=== PATIENT | female | born 1990 | race Caucasian/White ===

== ENCOUNTER 2019-06-22 03:15 | Inpatient (IN) | payer MEDICAID, SELFPAY ==
[2019-06-22] MEDS: Lactated Ringers 500 ML 999 ML IV ×2 (04:00→06:40)
[2019-06-22] MEDS: Lactated Ringers 1,000 ML 50 ML IV (04:00)
[2019-06-22 04:11] VITALS: BMI 26.2
[2019-06-22 04:19] LABS: Absolute Lymphocyte Count 1.96 X10^3/uL (0.83-4.51); Absolute Neutrophil Count 8.7 X10^3/uL (2.0-7.7); Basophil# 0.04 X10^3/uL; Basophil% 0.3 % (0-1); Eosinophils% 0.9 % (0-5); Hematocrit 36.3 % (37-47); Hemoglobin 12.2 g/dL (12.0-15.0); Lymphocyte # 1.96 X10^3/ul (4.0); Lymphocyte % 16.9 % (19-41); Mean Corp Hgb Conc 33.6 g/dL (32-36); Mean Corpuscular Hgb 28.8 pg (27.0-32.0); Mean Corpuscular Volume 85.8 fL (81-99); Mean Platelet Vol. 10.5 fl (6.2-12.0); Monocyte# 0.72 X10^3/uL; Monocyte% 6.2 % (0-10); NRBC Flagged by Analyzer 0 % (0-5); Neutrophil % 75.3 % (47-70); Platelet Count 199 K/mm3 (150-450); RBC Distribution Width CV 12.6 % (11.6-14.6); RBC Distribution Width SD 38.9 fl (35.1-43.9); Red Blood Count 4.23 M/mm3 (4.2-5.4); White Blood Count 11.6 K/mm3 (4.4-11.0)
--- NOTE | 2019-06-22 06:25 | HP.PCM_ITS ---
- Problem List (1) History of spontaneous Status: Acute (2) History of marijuana use Status: Acute (3) Rh negative status during Status: Acute History Date of Admission: 06/22/19 Final FLORY: 06/19/19 Gestational age: 40 Weeks and 3 Days History of this : This is a 29 year-old, G [2], P [0010], at 40 weeks 3 days gestational age by LMP. Presented for contractions and in active labor. Allergies No Known Allergies Allergy (Verified 06/22/19 04:05) Home Medications: Home Medications Vits [Prenatabs FA] 1 tab PO DAILY 06/22/19 Smoking Status: Former smoker Alcohol: None Substance Use Type: Marijuana Number of Fetus(es): 1 NST - FHR Rate Baby A Baseline: 140 Variability:: Minimal Accelerations:: None Decelerations:: None FHR Category:: Category II Uterine Activity:: Every 2 minutes, strong History Past Pregnancies: Past Pregnancies Delivery Date Name GA/ Weeks Outcome Route Wt Infant Sex Labor Length Anesthesia Delivery Location Provider FOB Labs: Mom's Labs & Results 06/22/19 06/22/19 06/22/19 04:00 04:00 04:00 WBC 11.6 H RBC 4.23 Hgb 12.2 Hct 36.3 L MCV 85.8 MCH 28.8 MCHC 33.6 RDW Std Deviation 38.9 RDW Coeff of Ever 12.6 Plt Count 199 MPV 10.5 Immature Gran % (Auto) 0.400 Neut % (Auto) 75.3 H Lymph % (Auto) 16.9 L [place] % (Auto) 6.2 Eos % (Auto) 0.9 Baso % (Auto) 0.3 Absolute Neuts (auto) 8.7 H Absolute Lymphs (auto) 1.96 Nucleated RBC % 0 Blood Type O NEGATIVE Antibody Screen TNP NEGATIVE Course Did the patient receive Yes care? Labs Blood Type: O RH: NEGATIVE RPR/VDRL/Syphilis Nonreactive Rubella status Immune HbSAg Negative Date Done: 12/08/18 Chlamydia Negative Gonorrhea Negative HIV/AIDS Non-Reactive Group B Strep: Negative Social History Hx Smoking No Smoking Status Former smoker Substance Use Type Marijuana What date/time did you last used beginning of but not since per pt use any of the above? Review of Systems Constitutional: Denies: Chills, Fever, Weight Change HEENT: Denies: Head Aches, Sinus Congestion, Sinus Drainage Cardiovascular: Denies: Chest Pain, Palpitations Genitourinary: Denies: Dysuria Neurological: Denies: Numbness, Tingling, Focal weakness Psychiatric: Denies: Anxiety, Depression, Homicidal Ideations, Suicidal Ideations Physical Exam General: Alert, Oriented x3, Cooperative HEENT: Atraumatic, Normocephalic Lungs: Normal air movement Abdomen: Gravid Extremities:: No edema SUPPLY COORDINATOR: Normal external genitalia Estimated gestational size: Appropriate for gestational size Presentation: Cephalic Cervix Dilation (cm): 9 Station: 0 Effacement (%): 90 Assessment/Plan All Active Problems History of spontaneous (Acute) History of marijuana use (Acute) Rh negative status during (Acute) This is a 29 year-old, G [2], P [0010], at 40 weeks 3 days gestational age. A: Active Labor Category 2 FHT P: 1) Admit to L&D 2) Continuous monitoring, IV labs 3) Planning Natural childbirth 4) notified of patient status
--- NOTE | 2019-06-22 08:14 | PCM.OPRPT ---
Vaginal Delivery Maternal Presentation: Active Labor Amniotic Membrane Rupture Type: Artificial Amniotic Fluid Description: Clear Final FLORY: 06/19/19 Gestational age: 40 Weeks and 3 Days Date of Procedure: 06/22/19 Pre-Operative Diagnosis: Labor Post-Operative Diagnosis: Labor Surgery/ Procedure Performed: Spontaneous Vaginal Delivery Type of Anesthesia: Local with 2% lidocaine Description of Procedure: Patient in stirrups when c/c/+3. She pushed to deliver head. head gently guided to allow delivery of anterior & posterior shoulders. No excess traction placed on head. Body delivered & infant placed on maternal abdomen. 3VC clamped & cut in delayed fashion. Placenta delivered with gentle traction. Good uterine tone obtained. Presentation: TANVIR Placental Delivery Description: Expressed Placenta Disposition: [facility] Cord Vessel Description: 3 Vessels Cord Entanglement: None Estimated Blood Loss: 400ml A gender: Male - [place] (1 minute): 9 (5 minute): 9 Episiotomy Description: None Laceration: 2nd degree - perineal - repaired with 3-0 vicryl Medications given after delivery: IV Pitocin Complications: None
[2019-06-22] MEDS: Oxytocin 30 units/NS 500 ml 30 UNITS/500 ML IV.SOLN 334 UNITS IV (08:29)
[2019-06-22] MEDS: Ketorolac 30 MG/ML Syringe IV (08:39)
[2019-06-22 11:00] VITALS: BP 139/69; PULSE 104; RESP 14; TEMP 36.9
[2019-06-22 16:00] VITALS: BP 115/55; PULSE 87; RESP 16; TEMP 37.2; O2SAT 98
[2019-06-22] MEDS: Acetaminophen 500 MG Tablet 1000 MG PO (17:13)
[2019-06-22 20:16] VITALS: BP 117/71; PULSE 83; RESP 16; TEMP 36.9; O2SAT 98
[2019-06-22] MEDS: Naproxen 250 MG Tablet 500 MG PO (22:21)
[2019-06-23 00:01] VITALS: BP 111/61; PULSE 83; RESP 14; TEMP 36.9
[2019-06-23 03:57] VITALS: BP 106/60; PULSE 80; RESP 14; TEMP 36.9
--- NOTE | 2019-06-23 06:35 | PCM.PN.OB ---
Patient Problems: Active and Suspected Problems History of spontaneous (Acute) History of marijuana use (Acute) Rh negative status during (Acute) Subjective: No complaints - Physical Exam Vitals/I&O's: Vital Signs Temp Pulse Resp BP Pulse Ox 98.5 F 80 14 106/60 98 06/23/19 03:57 06/23/19 03:57 06/23/19 03:57 06/23/19 03:57 06/22/19 20:16 Oxygen Delivery Method Room Air Weight: 153 lb 0.013 oz Body Mass Index (BMI) 26.2 Intake and Output for Last 24 Hours 06/21/19 06/22/19 06/23/19 23:59 23:59 23:59 Intake Total 2690.83 / 2690.83 Output Total 1900 / 1900 Balance 790.83 / 790.83 General: Alert, Oriented x3 Abdomen: Soft, Non Tender, Non-Distended - ff mid & below umb Extremities: No Calf Tenderness Current Medications Acetaminophen (Tylenol) 1,000 mg PO Q8H PRN PRN PRN Reason: Pain Score 1-3/10 Last Admin: 06/22/19 17:13 Dose: 1,000 mg Documented by: Bisacodyl (Dulcolax) 10 mg RECTAL UD PRN PRN Reason: If no BM Dibucaine (Dibucaine) 1 applic TOPICAL TID PRN PRN; Protocol PRN Reason: Discomfort Hydrocortisone (Hytone) 1 applic TOPICAL TID PRN PRN; Protocol PRN Reason: Discomfort Methylergonovine Maleate (Methergine) 0.2 mg IM X1 PRN PRN Reason: Excess bleeding/uterine atony Naproxen (Naprosyn) 500 mg PO Q8H PRN PRN PRN Reason: Pain Score 1-3/10 Last Admin: 06/22/19 22:21 Dose: 500 mg Documented by: Ondansetron HCl (Zofran) 4 mg IV Q4H PRN PRN PRN Reason: Nausea Oxycodone HCl (Oxyir) 5 - 10 mg PO Q4H PRN PRN PRN Reason: Pain Score 4-10/10 Senna/Docusate Sodium (Senokot-S, Jyotsna-Colace) 1 - 2 tablet PO DAILY PRN PRN PRN Reason: Constipation Simethicone (Mylicon) 80 mg PO PCHS PRN PRN Reason: Indigestion/Stomach pain Sodium Chloride () 5 - 15 ml IV UD PRN PRN Reason: SALINE FLUSH Medical Necessity - Tobacco Use Smoking Status: Former smoker Assessment/Plan All Active Problems History of spontaneous (Acute) History of marijuana use (Acute) Rh negative status during (Acute) PPD#1 D/c home later today per patient request
--- NOTE | 2019-06-23 06:37 | DCINST_ITS ---
Discharge Diet: No Restrictions Discharge Activity: May Drive, May Shower May resume sexual activity in: 6 weeks Weight Bearing Status: Weight bearing as tolerated Additional Instructions: If you experience any of the following, contact your healthcare provider. * Bleeding that soaks a pad every hour for 2 hours * Fever 100.4 or higher * Unrelieved incision or abdominal pain * Swelling, redness, discharge or bleeding from your incision or episiotomy site * Your incision begins to separate * Problems urinating (including inability to urinate or burning while urinating). * Visual changes * Severe headache * Flu-like symptoms * Pain or redness in one of both of your breasts * Pain, warmth, tenderness or swelling in your legs, especially the calf area * Frequent nausea and vomiting * Symptoms of depression or anxiety If you experience any of the following, call 911 or go to the nearest Emergency Room. * Chest pain * Problems breathing * Seizure activity * Partial or complete paralysis of a body part, slurred speech, weakness or drooping of the face, or a sudden inability to walk or hold your balance Allergies/Adverse Reactions: Allergies No Known Allergies Allergy (Verified 06/22/19 04:05) Medications to take at Discharge Vits [Prenatabs FA ] 1 tab PO DAILY 06/22/19 Acetaminophen [Tylenol] 1,000 mg PO Q8H PRN PRN tablet 06/23/19 Naproxen [Naprosyn] 500 mg PO Q8H PRN PRN tablet 06/23/19 Primary Care Physician: Zee Quiroz MD [Primary Care Provider] - Test Results: Test results from this visit will be discussed in further detail at your follow- up appointment, if applicable.
--- NOTE | 2019-06-23 06:37 | PCM.DCVAG ---
Discharge Diet: No Restrictions Discharge Activity: May Drive, May Shower May resume sexual activity in: 6 weeks Weight Bearing Status: Weight bearing as tolerated Additional Instructions: If you experience any of the following, contact your healthcare provider. Bleeding that soaks a pad every hour for 2 hours Fever 100.4 or higher Unrelieved incision or abdominal pain Swelling, redness, discharge or bleeding from your incision or episiotomy site Your incision begins to separate Problems urinating (including inability to urinate or burning while urinating). Visual changes Severe headache Flu-like symptoms Pain or redness in one of both of your breasts Pain, warmth, tenderness or swelling in your legs, especially the calf area Frequent nausea and vomiting Symptoms of depression or anxiety If you experience any of the following, call 911 or go to the nearest Emergency Room. Chest pain Problems breathing Seizure activity Partial or complete paralysis of a body part, slurred speech, weakness or drooping of the face, or a sudden inability to walk or hold your balance Allergies/Adverse Reactions: Allergies No Known Allergies Allergy (Verified 06/22/19 04:05) Medications to take at Discharge Vits [Prenatabs FA ] 1 tab PO DAILY 06/22/19 Acetaminophen [Tylenol] 1,000 mg PO Q8H PRN PRN tablet 06/23/19 Naproxen [Naprosyn] 500 mg PO Q8H PRN PRN tablet 06/23/19 Primary Care Physician: Zee Quiroz MD [Primary Care Provider] - Test Results: Test results from this visit will be discussed in further detail at your follow-up appointment, if applicable.
[2019-06-23 07:35] VITALS: BP 111/61; PULSE 87; RESP 14; TEMP 36.8
[2019-06-23] MEDS: Acetaminophen 500 MG Tablet 1000 MG PO (07:43)
[2019-06-23] MEDS: Senna/Docusate Sodium 1 Tablet PO (08:57)
[2019-06-23 14:00] VITALS: BP 111/76; PULSE 100; RESP 16; TEMP 36.2
== END 2019-06-23 15:40 | disposition home or self-care (01) | DRG 560 ==
PROVIDERS: Advanced Practice Midwife; Admitting Provider Obstetrics & Gynecology; Family Provider Pediatrics; PCP Pediatrics; Visit Provider Obstetrics & Gynecology
DX: O70.1 Second degree perineal laceration during delivery (principal); Z37.0 Single live birth; Z67.91 Unspecified blood type, Rh negative; Z87.891 Personal history of nicotine dependence; Z3A.40 40 weeks gestation of pregnancy
CPT/HCPCS: 59025; 59050; 85025; 86850; 86900; 86901; 99218; J7120; G0378

== ENCOUNTER → 2024-04-12 | Outpatient (CLI) | payer MEDICAID, SELFPAY ==
--- NOTE | 2024-04-12 10:21 | MRI_ITS ---
EXAM: MR LEFT LOWER EXTREMITY WITHOUT INTRAVENOUS CONTRAST, TIBIA AND FIBULA CLINICAL INDICATION: sessile tibia lesion, assess for malignancy TECHNIQUE: Multiplanar and multisequence MR images of the left tibia and fibula without intravenous contrast. COMPARISON: March 04, 2024 FINDINGS: BONES/JOINTS: Sessile osteochondroma at the lateral aspect of the metaphysis of the distal tibia. This causes chronic bony remodeling on the metadiaphysis of the distal fibula. Mild thickening anterior talofibular ligament from a previous injury. Patchy areas of edema involving the talus. There is also edema involving the posterior aspect of the distal tibia. No fracture. No joint effusion. MUSCLES: Unremarkable. No edema or myositis. OTHER SOFT TISSUES: Unremarkable. No solid or cystic mass. MRI/Lower Ext/No Jt/w/o IMPRESSION: 1. Mild thickening anterior talofibular ligament from a previous injury. 2. Sessile osteochondroma at the lateral aspect of the metaphysis of the distal tibia. This causes chronic bony remodeling on the metadiaphysis of the distal fibula. Electronically Signed: Sumit Umana MD at 3:16 EDT ,
--- OUTSIDE RECORDS SUMMARY | 2024-04-12 11:03 | XMS RPT_ITS | CCD ---
Author Organization [facility] Care Team Providers Care Transmitter Chief Name Role Phone Hank Abrams DO Primary Care Provider [phone] HANK ABRAMS Primary Care Unavailable BEATRIZ RODRIGUEZ Attending Unavailable BEATRIZ RODRIGUEZ Attending Unavailable HANK ABRAMS Primary Care Unavailable VIRAL PARISH Referring Unavailable HANK ABRAMS Primary Care Unavailable VIRAL PARISH Referring Unavailable HANK ABRAMS Primary Care Unavailable HANK ABRAMS Primary Care Unavailable HANK ABRAMS Primary Care Unavailable HANK ABRAMS Primary Care Unavailable ROBYN BOWMAN Attending Unavailab HANK Appiah Primary Care Unavailable HANK ABRAMS Primary Care Unavailable PRITI SCHAFFER Attending Unavailable HANK ABRAMS Primary Care Unavailable HANK ABRAMS Primary Care Unavailable BEATRIZ RODRIGUEZ Referring Unavailable HANK ABRAMS Primary Care Unavailable BEATRIZ RODRIGUEZ Referring Unavailable HANK ABRAMS Primary Care Unavailable Hank Abrams DO Primary Care Provider [phone] Allergies Allergy Classification Reported Allergen(s) Allergy Type Date of Onset Reaction(s) Facility (15 sources) Escitalopram; Translations: [ESCITALOPRAM] Drug Allergy 04-24-2023 Other: See Comments [facility] Work Phone: Medications Current Medications Medication Drug Class(es) Dates Sig (Normalized) Sig (Original) cephalexin 500 mg oral capsule (3 sources) Cephalosporin Antibacterial Start: 04-24-2023 End: 05-01-2023 take 1 capsule by mouth three times daily cephALEXin (KEFLEX) 500 mg capsule Indications: Rash Take 1 capsule by mouth three times a day for 7 days. 21 capsule 0 04/24/2023 05/01/2023 Active Comment on above: Take 1 capsule by mo uth three times a day for 7 days. doxycycline monohydrate 100 mg oral tablet (1 source) Tetracycline-class Drug Start: 11-29-2022 End: 12-06-2022 take 1 tablet by mouth twice daily doxycycline monohydrate 100 mg tablet Indications: Skin infection Take 1 tablet by mouth twice daily for 7 days. 14 tablet 0 11/29/2022 12/06/2022 Active Comment on above: Take 1 tablet by ashwini th twice daily for 7 days. metroNIDAZOLE 500 mg oral tablet (2 sources) Nitroimidazole Antimicrobial Start: 04-01-2023 End: 04-08-2023 take 1 tablet by mouth twice daily metroNIDAZOLE (FLAGYL) 500 mg tablet Take 1 tablet by mouth two times a day for 7 days. 14 tablet 0 04/01/2023 04/08/2023 Active Comment on above: Take 1 tablet by ashwini th two times a day for 7 days. mupirocin 0.02 mg/mg topical ointment (4 sources) RNA Synthetase Inhibitor Antibacterial Start: 04-24-2023 End: 05-04-2023 mupirocin (BACTROBAN) 2 % ointment Indications: Rash Apply to affected area three times a day for 10 days. 22 g 1 04/24/2023 05/04/2023 Active Comment on above: Apply to affected ar ea three times a day for 10 days. Kwuzvbpe-Ho-Qus-Fe- FA tab (11 sources) Start: 02-19-2024 take 1 tablet by mouth once daily Uavzwoni-Hd-Fib-Fe -FA tab Take 1 tablet by mouth once daily. 02/19/2024 Active End: 11-29-2022 take 1 tablet by mouth once Gtzugacq-Ul-Azh-Fe-FA tab Take 1 tablet by mouth. 0 11/29/2022 Discontinued take 1 tablet by ahswini th once Vgijfhpo-Gv-Wdy-Fe-FA tab Take 1 tablet by mouth. 0 Active Comment on above: Take 1 tablet by ashwini th. vitamin b6 100 mg oral tablet (2 sources) Start: 03-12-2024 take 1 tablet by mouth once daily pyridoxine, vitamin B6, (VITAMIN B-6) 100 mg tablet Take 1 tablet by mouth once daily. 100 tablet 3 03/12/2024 Active Completed/Discontinued Medications Medication Drug Class(es) Dates Sig (Normalized) Sig (Original) escitalopram 10 mg oral tablet (16 sources) Serotonin Reuptake Inhibitor Start: 04-23-2023 End: 04-24-2023 take 1 tablet by mouth once daily at bedtime escitalopram oxalate (LEXAPRO) 10 mg tablet Indications: TAMIKA (generalized anxiety disorder) Take 1 tablet by mouth daily at bedtime. 30 tablet 0 04/23/2023 04/24/2023 Discontinued Start: 03-21-2023 take 1 tablet by ashwini th once daily at bedtime escitalopram oxalate (LEXAPRO) 10 mg tablet Indications: TAMIKA (generalized anxiety disorder) Take 1 tablet by mouth daily at bedtime. 30 tablet 1 03/21/2023 Active Start: 01-06-2023 take 1 tablet by ashwini th once daily at bedtime escitalopram oxalate (LEXAPRO) 10 mg tablet Indications: TAMIKA (generalized anxiety disorder) Take 1 tablet by mouth daily at bedtime. 30 tablet 1 01/06/2023 Active Start: 07-15-2022 End: 10-17-2022 take 1 tablet by mouth once daily at bedtime escitalopram oxalate (LEXAPRO) 10 mg tablet Indications: TAMIKA (generalized anxiety disorder) Take 1 tablet by mouth daily at bedtime. 30 tablet 1 10/17/2022 Active Start: 03-27-2022 take 1 tablet by ashwini th once daily at bedtime escitalopram oxalate (LEXAPRO) 10 mg tablet Indications: TAMIKA (generalized anxiety disorder) Take 1 tablet by mouth daily at bedtime. 30 tablet 2 03/27/2022 Active Comment on above: Take 1 tablet by sahwini th daily at bedtime. fluconazole 150 mg oral tablet (3 sources) Azole Antifungal Start: 3 End: 3 take 1 tablet by mouth once daily fluconazole (DIFLUCAN) 150 mg tablet Take 1 tablet by mouth once daily for 1 day. 1 tablet 0 03/31/2023 04/01/2023 Comment on above: Take 1 tablet by ashwini th once daily for 1 day. FLUoxetine 20 mg oral capsule (9 sources) Serotonin Reuptake Inhibitor Start: 3 End: 4 take 1 capsule by mouth once daily FLUoxetine (PROZAC) 20 mg capsule Take 1 capsule by mouth once daily. 30 capsule 2 06/25/2023 02/19/2024 Discontinued Comment on above: Take 1 capsule by mo uth once daily. Vnzdtqiv-Hk-Glw-Fe-F A ( VITAMIN) tab (1 source) take 1 tablet by mouth once Evrnsjiy-Bu-Qbx-Fe-FA ( VITAMIN) tab Take 1 tablet by mouth. 0 Active Comment on above: Take 1 tablet by ashwini th. sertraline 25 mg oral tablet (2 sources) Serotonin Reuptake Inhibitor Start: 2 End: 2 take 1 tablet by mouth once daily sertraline (ZOLOFT) 25 mg tablet Indications: Anxiety Take 1 tablet by mouth once daily. 30 tablet 1 01/15/2022 03/27/2022 Discontinued Comment on above: Take 1 tablet by ashwini th once daily. Problems Active Problems Problem Classification Problem Date Documented Da te Episodic/Chronic Anxiety disorders (7 sources) Anxiety; Translations: [Anxiety disorder, unspecified] Onset: 3 Chronic Cancer of cervix (1 source) Cervical atypism; Translations: [Atypical squamous cells of undetermined significance on cytologic smear of cervix (ASC-US)] 04-02-2023 Episodic Female infertility (1 source) Anovulation; Translations: [Female infertility associated with anovulation] 02-19-2024 Chronic Nonmalignant breast conditions (1 source) Lump in upper inner quadrant of left breast; Translations: [Unspecified lump in the left breast, upper inner quadrant] 02-14-2023 Episodic Other female genital disorders (1 source) Pruritus of vagina; Translations: [Other specified noninflammatory disorders of vagina] 03-31-2023 Episodic Other female genital disorders (1 source) Vaginal odor; Translations: [Other specified noninflammatory disorders of vagina] 03-31-2023 Episodic Other gastrointestinal disorders (1 source) Abdominal bloating; Translations: [Abdominal distension (gaseous)] 02-14-2023 Episodic Other injuries and conditions due to external causes (1 source) Injury of left ankle; Translations: [Unspecified injury of left ankle, initial encounter] 02-17-2024 Episodic Other and delivery including normal (11 sources) Normal ; Translations: [Encounter for supervision of other normal , first trimester] Onset: 9 Resolved: 0 08-05-2019 Episodic Other screening for suspected conditions (not mental disorders or infectious disease) (1 source) Plain X-ray result abnormal; Translations: [Abnormal findings on diagnostic imaging of other specified body structures] 02-17-2024 Chronic Other screening for suspected conditions (not mental disorders or infectious disease) (1 source) Cancer cervix screening status; Translations: [Encounter for screening for malignant neoplasm of cervix] 04-02-2023 Episodic Other skin disorders (1 source) Eruption; Translations: [Rash and other nonspecific skin eruption] 04-24-2023 Episodic Sexually transmitted infections (not HIV or hepatitis) (1 source) Human papillomavirus deoxyribonucleic acid test positive, high risk on cervical specimen; Translations: [Cervical high risk human papillomavirus (HPV) DNA test positive] 04-02-2023 Episodic Skin and subcutaneous tissue infections (1 source) Infection of skin; Translations: [Local infection of the skin and subcutaneous tissue, unspecified] Episodic Past or Other Problems Problem Classification Problem Date Documented Da te Episodic/Chronic Immunizations and screening for infectious disease (4 sources) Patient encounter status; Translations: [Encounter for screening for human papillomavirus (HPV)] Onset: 06-03-2023 04-02-2023 Episodic Other complications of (9 sources) H/O: miscarriage; Translations: [Supervision of with other poor reproductive or obstetric history, unspecified trimester] Onset: 10-15-2018 Resolved: 08-05-2019 08-05-2019 Episodic Other complications of (9 sources) RhD negative; Translations: [Other specified related conditions, unspecified trimester] Onset: 12-09-2018 Resolved: 08-05-2019 08-05-2019 Episodic Other gastrointestinal disorders (9 sources) History of rectal bleeding; Translations: [Personal history of other diseases of the digestive system] Onset: 05-14-2018 Resolved: 06-10-2019 06-10-2019 Episodic Other injuries and conditions due to external causes (9 sources) Finding of urine substance level; Translations: [Elevated urine levels of drugs, medicaments and biological substances] Onset: 05-21-2018 Resolved: 06-12-2018 06-12-2018 Episodic Other skin disorders (9 sources) Sebaceous cyst of skin; Translations: [Sebaceous cyst] Onset: 07-14-2013 Resolved: 06-12-2018 06-12-2018 Episodic Residual codes; unclassified (9 sources) FH: Congenital heart disease; Translations: [Family history of other congenital malformations, deformations and chromosomal abnormalities] Onset: 05-14-2018 Resolved: 06-12-2018 06-12-2018 Episodic Screening and history of mental health and substance abuse codes (9 sources) Stopped smoking; Translations: [Personal history of nicotine dependence] Onset: 05-14-2018 Resolved: 06-12-2018 06-12-2018 Episodic Substance-related disorders (20 sources) Marijuana user; Translations: [Cannabis use, unspecified, uncomplicated] Onset: 11-15-2018 11-15-2018 Episodic Results Test Name Value Interpretation Reference Range Facil ity CNPNon 03-16-2024 CNPN Telephone (OBGYWM) ALEXANDRENOBLEADAMTOSIN EAGLE ([id number]) 1990 F Date Time Provider Department 03/16/24 BEATRIZ RODRIGUEZ During your visit today, we recorded the following information about you: Fiorella Stern RN 03/16/2024 1:58 PM Signed ----- Message from Beatriz Rodriguez MD sent at 03/16/2024 1:12 PM EDT ----- Hcg quants rising well. Needs new OB visit. Cancel 03/30 RR visit as needs new OB that week. MD Stefanie Mccall Trisha, RN 03/16/2024 2:01 PM Signed Attempted to call patient. Unable to leave message because mailbox is full. [facility] message sent. Fiorella Stern RN Allergies As of Date: 03/16/2024 Noted Allergy Reaction LEXAPRO (ESCITALOPRAM) 04/24/2023 14 - Other: See Comments Comments: Decreased libido Date Reviewed: 03/12/2024 Reviewed by: Beatriz Rodriguez MD - Fully Assessed Reason for Visit: Results [95] Prescriptions as of 03/18/2024 - pyridoxine, vitamin B6, (VITAMIN B-6) 100 mg tablet Take 1 tablet by mouth once daily. - Jmncmdvl-Sn-Chm-Fe-FA tab Take 1 tablet by mouth once daily. Problem List As Of Date 03/16/2024 Noted Resolved Sebaceous cyst [L72.3] 07/14/2013 06/12/2018 Quit smoking [Z87.891] 05/14/2018 06/12/2018 Family history of congenital heart defect [Z82.*05/14/2018 06/12/2018 History of rectal bleeding [Z87.19] 05/14/2018 06/10/2019 Patient request for diagnostic testing [Z01.89] 05/14/2018 06/12/2018 Positive urine drug screen [R82.5] 05/21/2018 06/12/2018 Current with history of spontaneous a*10/15/2018 08/05/2019 Marijuana use [F12.90] 11/15/2018 Encounter for supervision of other normal pregn*12/08/2018 08/05/2019 Rh negative state in antepartum period [O26.899*12/09/2018 08/05/2019 Encounter Status:Closed by FIORELLA STERN on 03/18/24 Normal [facility] HCG.beta subunit Qn 701.4 m[IU]/mL High <5.0 [facility] Comment on above: Order Comment: Speci men Type: BLOOD SPECIMENOrdering Facility: [facility] Address: [address] [place] [address] Result Comment: MARIZOL TITATIVE HCG NORMAL RANGES Weeks of Gestation (Weeks Since LMP) 3 Weeks (5.8-71.2 mIU/mL) 4 Weeks (9.5-750 mIU/mL) 5 Weeks (217-7138 mIU/mL) 6 Weeks (158-63482 mIU/mL) 7 Weeks (3697-714059 mIU/mL) 8 Weeks (03865-610732 mIU/mL) 9 Weeks (02257-692940 mIU/mL) 10 Weeks (44904-359277 mIU/mL) 12 Weeks (04021-984570 mIU/mL) Referenced to 4th IS of NIBSC Performed By: #### 2 1198-7 ####[facility] LABCLIA [id number] [place] [address] [place] B-HCG SerPl-aCncon HCG.beta subunit Qn 179.6 m[IU]/mL High <5.0 C [facility] Comment on above: Order Comment: Speci men Type: BLOOD SPECIMENOrdering Facility: [facility] Address: [address] [place] [address] Result Comment: MARIZOL TITATIVE HCG NORMAL RANGES Weeks of Gestation (Weeks Since LMP) 3 Weeks (5.8-71.2 mIU/mL) 4 Weeks (9.5-750 mIU/mL) 5 Weeks (217-7138 mIU/mL) 6 Weeks (158-55932 mIU/mL) 7 Weeks (3697-188241 mIU/mL) 8 Weeks (70796-155045 mIU/mL) 9 Weeks (97879-971173 mIU/mL) 10 Weeks (04588-907903 mIU/mL) 12 Weeks (15461-362404 mIU/mL) Referenced to 4th IS of [facility] Performed By: #### 2 1198-7 ####[facility] LABIA [id number] [address] [place] CNOVon 03-12-2024 CNOV Office Visit (OBMAIAWElyse ) TOSIN PAVON ([id number]) 1990 F Date Time Provider Department 03/12/24 11:20 AM BEATRIZ RODRIGUEZ During your visit today, we recorded the following information about you: Blood pressure Weight 112/70 67.1 kg Beatriz Rodriguez MD 03/12/2024 1:14 PM Signed Tosin Pavon is a 34 year old female who presents for problem visit. HPI: She presents with positive test. Patient denies complaints other than minimal nausea.. She is supposed to get an MRI on her ankle. OB History T1 L1 SAB0 IAB0 Ectopic0 Multiple0 Live Births1 Complex Care Nurse Practitioner History LMP: 02/04/2024 (Exact Date), Having periods Age at Menarche: Age at First : Age at Menopause: Complex Care Nurse Practitioner History Comments: Sexual Activity: Yes; Male Contraception: None PAST MEDICAL HISTORY Diagnosis Date Chlamydia age 19 TAMIKA (generalized anxiety disorder) Psoriasis Dr. Mckeon at [facility] PAST SURGICAL HISTORY Procedure Laterality Date PAST SURGICAL HISTORY OF wisdom teeth [facility] ([facility]ICE [facility]) 2018 FAMILY HISTORY Problem Relation Age of Onset No Known Problems Paternal Grandmother Cancer Paternal Grandfather lung No Known Problems Maternal Grandmother No Known Problems Mother No Known Problems Father No Known Problems Brother None Other Social History Tobacco Use Smoking status: Former Current packs/day: 0.00 Average packs/day: 0.5 packs/day for 20.0 years (10.0 ttl pk-yrs) Types: Cigarettes Start date: 05/01/1998 Quit date: 05/01/2018 Years since quittin.8 Smokeless tobacco: Never Vaping Use Vaping status: current everyday user Substances: Nicotine Devices: Pre-filled or refillable cartridge Substance Use Topics Alcohol use: Yes Comment: occasional Drug use: No Current Outpatient Medications Medication Sig Omwvcfwl-Re-Qme-Fe-FA tab Take 1 tablet by mouth once daily. No current facility-administered medications for this visit. Allergies As of Date: 03/12/2024 Allergen Noted Reaction LEXAPRO [ESCITALOPRAM] 04/24/2023 Other: See Comments Fully Assessed 02/19/2024 Allergies and current medication updated:Yes SENSITIVE EXAM: Sensitive exam not performed. EXAM: LMP 02/04/2024 GENERAL: pleasant, female in no apparent distress ASSESSMENT AND PLAN: 34yo female with positive test Advised on vitamin B6 to help decrease nausea. Hcg quants ordered. Reviewed that MRI in is safe but don't recommend contrast. Orthopedic office called AND message left. Medical Decision Making: Problems: Low: Acute, uncomplicated illness or injury Data: Unique test(s) ordered: 2 Risk: Low: Low risk from testing/treatment Medical Decision Making Level: 3 - Low Beatriz Rodriguez MD Allergies As of Date: 03/12/2024 Noted Allergy Reaction LEXAPRO (ESCITALOPRAM) 04/24/2023 14 - Other: See Comments Comments: Decreased libido Date Reviewed: 03/12/2024 Reviewed by: Beatriz Rodriguez MD - Fully Assessed Reason for Visit: Discussion [813] Primary Visit Diagnosis:Encounter for test, result positive [Z32.01] Order(s):HCG QUANTITATIVE [SQHCGQT] Order #: [id number] STANDING pyridoxine, vitamin B6, (VITAMIN B-6) 100 mg tabletTake 1 tablet by mouth once daily.Disp: 100 tabletRfl: 3 Prescriptions as of 03/12/2024 - pyridoxine, vitamin B6, (VITAMIN B-6) 100 mg tablet Take 1 tablet by mouth once daily. - Wavcymxa-Dw-Ais-Fe-FA tab Take 1 tablet by mouth once daily. Problem List As Of Date 03/12/2024 Noted Resolved Sebaceous cyst [L72.3] 07/14/2013 06/12/2018 Quit smoking [Z87.891] 05/14/2018 06/12/2018 Family history of congenital heart defect [Z82.*05/14/2018 06/12/2018 History of rectal bleeding [Z87.19] 05/14/2018 06/10/2019 Patient request for diagnostic testing [Z01.89] 05/14/2018 06/12/2018 Positive urine drug screen [R82.5] 05/21/2018 06/12/2018 Current with history of spontaneous a*10/15/2018 08/05/2019 Marijuana use [F12.90] 11/15/2018 Encounter for supervision of other normal pregn*12/08/2018 08/05/2019 Rh negative state in antepartum period [O26.899*12/09/2018 08/05/2019 Prescriptions ordered this encounter Disp Refills Start End PYRIDOXINE (VITAMIN B6) 100 MG TABLET 100 * 3 03/12/2024 Route: ORAL Sig: Take 1 tablet by mouth once daily. Encounter Status:Closed by BEATRIZ RODRIGUEZ on 03/12/24 Normal [facility] 03-08-2024 [facility]AV[facility] ([id number]) 1990 F Date Time Provider Department 03/08/24 [facility] During your visit today, we recorded the following information about you: Nola Del Castillo 03/08/2024 9:01 AM Signed Cristina from [facility] calling in to get images pushed over to them of patient's ankle. X-ray done on 02/17/24. Nola Del Castillo March 08, 2024 9:00 AM Linda Camara PSS 03/08/2024 11:22 AM Signed Faxed over release to [facility] med rec Allergies As of Date: 03/08/2024 Noted Allergy Reaction LEXAPRO (ESCITALOPRAM) 04/24/2023 14 - Other: See Comments Comments: Decreased libido Date Reviewed: 02/19/2024 Reviewed by: Beatriz Rodriguez MD - Fully Assessed Reason for Visit: Results [95] Prescriptions as of 03/09/2024 - Frsfnthj-Ss-Hvh-Fe-FA tab Take 1 tablet by mouth once daily. Problem List As Of Date 03/08/2024 Noted Resolved Sebaceous cyst [L72.3] 07/14/2013 06/12/2018 Quit smoking [Z87.891] 05/14/2018 06/12/2018 Family history of congenital heart defect [Z82.*05/14/2018 06/12/2018 History of rectal bleeding [Z87.19] 05/14/2018 06/10/2019 Patient request for diagnostic testing [Z01.89] 05/14/2018 06/12/2018 Positive urine drug screen [R82.5] 05/21/2018 06/12/2018 Current with history of spontaneous a*10/15/2018 08/05/2019 Marijuana use [F12.90] 11/15/2018 Encounter for supervision of other normal pregn*12/08/2018 08/05/2019 Rh negative state in antepartum period [O26.899*12/09/2018 08/05/2019 Encounter Status:Closed by NOLA DEL CASTILLO on 03/09/24 Normal [facility] CNOVon 02-19-2024 CNOV Office Visit (OBGYWM ) TOSIN PAVON ([id number]) 1990 F Date Time Provider Department 02/19/24 2:20 PM BEATRIZ RODRIGUEZ OBGYWM During your visit today, we recorded the following information about you: Blood pressure Weight Height Last Period 120/80 67 kg 1.626 m 02/04/24 Beatriz Rodriguez MD 02/19/2024 2:54 PM Signed Combination Man offered: Patient declines. Tosin is a 34 year old who presents for an annual gynecologic exam without complaints. She AND her fiance have been trying to conceive for 8 months. OPK's do not indicate ovulation. Her partner has never fathered a child. Menses: cycles every 28-30 days and 3 days of flow. Contraception: none HPV vaccine: N/A Last Pap: 04/11/2023 normal HPV: 04/05/2023 negative History of abnormal pap: Yes - 2020 Last mammogram: never OB History T1 L1 SAB0 IAB0 Ectopic0 Multiple0 Live Births1 Complex Care Nurse Practitioner History LMP: 02/04/2024 (Exact Date), Having periods Age at Menarche: Age at First : Age at Menopause: Complex Care Nurse Practitioner History Comments: Sexual Activity: Yes; Male Contraception: None PAST MEDICAL HISTORY age 19: Chlamydia No date: TAMIKA (generalized anxiety disorder) No date: Psoriasis Comment: Dr. Mckeon at [facility] SURGICAL HISTORY No date: PAST SURGICAL HISTORY OF Comment: wisdom teeth 2018: [facility] ([facility]) FAMILY HISTORY Problem Relation Age of Onset No Known Problems Paternal Grandmother Cancer Paternal Grandfather lung No Known Problems Maternal Grandmother No Known Problems Mother No Known Problems Father No Known Problems Brother None Other SOCIAL HISTORY Social History Tobacco Use Smoking status: Former Current packs/day: 0.00 Average packs/day: 0.5 packs/day for 20.0 years (10.0 ttl pk-yrs) Types: Cigarettes Start date: 05/01/1998 Quit date: 05/01/2018 Years since quittin.8 Smokeless tobacco: Never Vaping Use Vaping status: current everyday user Substances: Nicotine Devices: Pre-filled or refillable cartridge Substance Use Topics Alcohol use: Yes Comment: occasional Drug use: No REVIEW OF SYSTEMS Abdomen: No abdominal pain, nausea, vomiting, diarrhea, or constipation. No bloating, early satiety, indigestion, or increased flatulence. Bladder: No dysuria, gross hematuria, urinary frequency, urinary urgency, or incontinence. Breast: No breast lumps, nipple d/c, overlying skin changes, redness or skin retraction. Allergies and current medication updated:Yes EXAM: BP 120/80 Ht 5' 4 (1.63m) Wt 147 lb 9.6 oz (67.0kg) LMP 02/04/2024 BMI 25.32 kg/(m2). GENERAL: pleasant, female in no apparent distress BREAST: soft, non-tender, symmetric, no dominant mass, normal nipple-areolar complex, no lymphadenopathy, and no nipple discharge CHEST: Normal inspiratory effort ABDOMEN: soft, non-tender, and no masses PELVIC: external genitalia normal, normal Bartholin's glands, urethra, Atkinson's glands, no vulvar lesions, no cervical lesions, good vaginal support, physiologic discharge present, normal appearing perineal body and perianal region BIMANUAL: uterus normal size, shape and consistency, no adnexal masses, and non-tender RECTOVAGINAL: deferred. NEURO: alert and oriented x3,exam grossly non-focal EXTREMITIES: normal ASSESSMENT/PLAN: 1) Health maintenance: Pap/HPV up to date. Mammogram starting age 40. Nutrition, exercise and routine health maintenance exams reviewed. 2) Contraception: none. Contraceptive options reviewed and information provided. 3) Desires - day 21 progesterone ordered. Discussed that could order semen analysis on fiance if they want to proceed. 4) Follow up one year or sooner as needed Beatriz Rodriguez MD Allergies As of Date: 02/19/2024 Noted Allergy Reaction LEXAPRO (ESCITALOPRAM) 04/24/2023 14 - Other: See Comments Comments: Decreased libido Date Reviewed: 02/19/2024 Reviewed by: Beatriz Rodriguez MD - Fully Assessed Reason for Visit: Well Woman [1463] Primary Visit Diagnosis:Encounter for gynecological examination (general) (routine) without abnormal findings [Z01.419] Other Visit Diagnosis:Anovulation [N97.0] Order(s):PROGESTERONE [SQPROG] Order #: [id number] FUTURE Xycvqmka-Yl-Idu-Fe-FA tabTake 1 tablet by mouth once daily.Disp: Rfl: Prescriptions as of 02/19/2024 - Ypxialxo-Zx-Hyp-Fe-FA tab Take 1 tablet by mouth once daily. Problem List As Of Date 02/19/2024 Noted Resolved Sebaceous cyst [L72.3] 07/14/2013 06/12/2018 Quit smoking [Z87.891] 05/14/2018 06/12/2018 Family history of congenital heart defect [Z82.*05/14/2018 06/12/2018 History of rectal bleeding [Z87.19] 05/14/2018 06/10/2019 Patient request for diagnostic testing [Z01.89] 05/14/2018 06/12/2018 Positive urine drug screen [R82.5] 05/21/2018 06/12/2018 Current with history of spontaneous a*10/15/ (more content not included)... Normal [facility] CNOVon 02-17-2024 CNOV Office Visit (UCWSTR ) TOSIN PAVON ([id number]) 1990 F Date Time Provider Department 02/17/24 1:45 PM [facility] During your visit today, we recorded the following information about you: Temperature Pulse Respiration Blood pressure 97.8 degrees 75/minute 18/minute 128/82 Weight 67.8 kg Viral Parish APRN.CNP 02/17/2024 6:28 PM Signed Subjective HPI HPI Tosin Pavon is a 34 year old female who presents today for CC of left ankle injury. This started 1 month ago. Has tried otc medication, compression, ice for relief. Symptoms are worsened by rom. Denies numbness/tingling of left foot. .Patient presents with: left ankle pain: Rolled ankle 1 month ago PAST MEDICAL HISTORY age 19: Chlamydia No date: TAMIKA (generalized anxiety disorder) No date: Psoriasis Comment: Dr. Mckeon at [facility] PAST SURGICAL HISTORY No date: PAST SURGICAL HISTORY OF Comment: wisdom teeth 2018: [facility] (OFFICE [facility]) ALLERGIES Lexapro [Escitalopram] MEDICATIONS FLUoxetine (PROZAC) 20 mg capsule Take 1 capsule by mouth once daily. (Patient not taking: Reported on 10/03/2023) FAMILY HISTORY Problem Relation Age of Onset No Known Problems Paternal Grandmother Cancer Paternal Grandfather lung No Known Problems Maternal Grandmother No Known Problems Mother No Known Problems Father No Known Problems Brother None Other Social History Tobacco Use Smoking status: Former Current packs/day: 0.00 Average packs/day: 0.5 packs/day for 20.0 years (10.0 ttl pk-yrs) Types: Cigarettes Start date: 05/01/1998 Quit date: 05/01/2018 Years since quittin.8 Smokeless tobacco: Never Vaping Use Vaping status: current everyday user Substances: Nicotine, Flavoring Devices: Pre-filled or refillable cartridge Substance Use Topics Alcohol use: Yes Comment: occasional Drug use: No ROS Objective Blood pressure 128/82, pulse 75, temperature 36.6 ?C (97.8 ?F), temperature source Tympanic, resp. rate 18, weight 67.8 kg (149 lb 7.6 oz), last menstrual period 10/01/2023, SpO2 98%. Physical Exam Constitutional: General: She is not in acute distress. Appearance: She is not toxic-appearing or diaphoretic. HENT: Head: Normocephalic and atraumatic. Pulmonary: Effort: Pulmonary effort is normal. No accessory muscle usage or respiratory distress. Musculoskeletal: Feet: Neurological: Mental Status: She is alert and oriented to person, place, and time. ASSESSMENT/PLAN: 1. Injury of left ankle, initial encounter - ICD9: 959.7, ICD10: S99.912A (primary diagnosis) Will refer to orthopedics for eval - XR ANKLE GENERAL 3V AP/LAT/OBL LEFT IMPRESSION: Sessile broad-based exostosis arising from the lateral aspect of the distal tibia with secondary remodeling and mild lateral bowing deformity of the adjacent distal fibular shaft. No radiographic evidence of acute osseous injury Dictated by : RACHEL DALY MD - CONSULT TO ORTHOPAEDICS 2. Abnormal x-ray - ICD9: 793.99, ICD10: R93.89 - CONSULT TO ORTHOPAEDICS Viral Parish APRN.HOSPITALITY SERVICES MANAGER Allergies As of Date: 02/17/2024 Noted Allergy Reaction LEXAPRO (ESCITALOPRAM) 04/24/2023 14 - Other: See Comments Comments: Decreased libido Date Reviewed: 02/17/2024 Reviewed by: Akua Snell LPN - Fully Assessed Reason for Visit: left ankle pain [Other] Cmt: Rolled ankle 1 month ago Primary Visit Diagnosis:Injury of left ankle, initial encounter [S99.912A] Other Visit Diagnosis:Abnormal x-ray [R93.89] Order(s):XR ANKLE GENERAL 3V AP/LAT/OBL LEFT [0016018] Order #: [id number]. #:[id number] CONSULT TO ORTHOPAEDICS [9026] Order #: [id number]: 1 FUTURE Prescriptions as of 02/17/2024 - FLUoxetine (PROZAC) 20 mg capsule Take 1 capsule by mouth once daily. Problem List As Of Date 02/17/2024 Noted Resolved Sebaceous cyst [L72.3] 07/14/2013 06/12/2018 Quit smoking [Z87.891] 05/14/2018 06/12/2018 Family history of congenital heart defect [Z82.*05/14/2018 06/12/2018 History of rectal bleeding [Z87.19] 05/14/2018 06/10/2019 Patient request for diagnostic testing [Z01.89] 05/14/2018 06/12/2018 Positive urine drug screen [R82.5] 05/21/2018 06/12/2018 Current with history of spontaneous a*10/15/2018 08/05/2019 Marijuana use [F12.90] 11/15/2018 Encounter for supervision of other normal pregn*12/08/2018 08/05/2019 Rh negative state in antepartum period [O26.899*12/09/2018 08/05/2019 Encounter Status:Closed by V[facility]AL [facility] on 02/17/24 Normal [facility] TOSIN [facility]AV[facility] ([id number]) 1990 F Date Time Provider Department 02/17/24 [facility] During your visit today, we recorded the following information about you: Viral Parish APRN.CNP 02/17/2024 5:05 PM Signed Called to discuss xray results. Mailbox is full. Try to get ahold of patient to discuss xray results. Isa Baptiste LPN 02/20/2024 7:52 AM Signed Unable to get ahold of Pt. YULISSA Rangel Melissa, MA 02/23/2024 8:25 AM Signed viewed in [place]. Janine Shi MA Allergies As of Date: 02/17/2024 Noted Allergy Reaction LEXAPRO (ESCITALOPRAM) 04/24/2023 14 - Other: See Comments Comments: Decreased libido Date Reviewed: 02/17/2024 Reviewed by: Akua Snell LPN - Fully Assessed Reason for Visit: Results [95] Prescriptions as of 02/23/2024 - [id number]-Bl-[id number]-Fe-FA tab Take 1 tablet by mouth once daily. Problem List As Of Date 02/17/2024 Noted Resolved Sebaceous cyst [L72.3] 07/14/2013 06/12/2018 Quit smoking [Z87.891] 05/14/2018 06/12/2018 Family history of congenital heart defect [Z82.*05/14/2018 06/12/2018 History of rectal bleeding [Z87.19] 05/14/2018 06/10/2019 Patient request for diagnostic testing [Z01.89] 05/14/2018 06/12/2018 Positive urine drug screen [R82.5] 05/21/2018 06/12/2018 Current with history of spontaneous a*10/15/2018 08/05/2019 Marijuana use [F12.90] 11/15/2018 Encounter for supervision of other normal pregn*12/08/2018 08/05/2019 Rh negative state in antepartum period [O26.899*12/09/2018 08/05/2019 Encounter Status:Closed by JANINE SHI on 02/23/24 Normal [facility] XR ANKLE 3V AP/LAT/OBL LTon 02-17-2024 XR ANKLE 3V AP/LAT/OBL LT * * *Final Report* * * DATE OF EXAM: Feb 17 2024 4:35PM WOX 5298 - XR ANKLE 3V AP/LAT/OBL LT / PROCEDURE REASON: Injury of left ankle, initial encounter * * * * Physician Interpretation * * * * TITLE: XR ANKLE 3V AP/LAT/OBL LT CLINICAL INDICATION: Ankle injury TECHNIQUE: 3 view radiographic study of the left ankle COMPARISON: None FINDINGS: There is a sessile, broad-based exostosis arising from the lateral aspect of the distal tibial metaphysis which demonstrates cortical medullary continuity with the underlying bone. This exostosis abuts and results in remodeling and mild lateral bowing deformity of the distal fibular metadiaphysis. No acute fracture or dislocation identified. IMPRESSION: Sessile broad-based exostosis arising from the lateral aspect of the distal tibia with secondary remodeling and mild lateral bowing deformity of the adjacent distal fibular shaft. No radiographic evidence of acute osseous injury. Adjuster Electrical Contacts: PSCB Transcribe Date/Time: Feb 17 2024 4:39P Dictated by : RACHEL DALY MD This examination was interpreted and the report reviewed and electronically signed by: RACHEL DALY MD on Feb 17 2024 4:41PM EST [id number] Normal [facility] XR Ankle - left AP and Later al and obliqueon 02-17-2024 IMPRESSION: Sessile broad-based exostosis arising from the lateral aspect of the distal tibia with secondary remodeling and mild lateral bowing deformity of the adjacent distal fibular shaft. No radiographic evidence of acute osseous injury. Adjuster Electrical Contacts: PSCB Transcribe Date/Time: Feb 17 2024 4:39P Dictated by : RACHEL DALY MD This examination was interpreted and the report reviewed and electronically signed by: RACHEL DALY MD on Feb 17 2024 4:41PM EST DIVISION OF RADIOLOGY * * *Final Report* * * DATE OF EXAM: Feb 17 2024 4:35PM WOX 5298 - XR ANKLE 3V AP/LAT/OBL LT / PROCEDURE REASON: Injury of left ankle, initial encounter * * * * Physician Interpretation * * * * TITLE: XR ANKLE 3V AP/LAT/OBL LT CLINICAL INDICATION: Ankle injury TECHNIQUE: 3 view radiographic study of the left ankle COMPARISON: None FINDINGS: There is a sessile, broad-based exostosis arising from the lateral aspect of the distal tibial metaphysis which demonstrates cortical medullary continuity with the underlying bone. This exostosis abuts and results in remodeling and mild lateral bowing deformity of the distal fibular metadiaphysis. No acute fracture or dislocation identified. DIVISION OF RADIOLOGY Provider, [facility] - 02/17/2024 * * *Final Report* * * DATE OF EXAM: Feb 17 2024 4:35PM WOX 5298 - XR ANKLE 3V AP/LAT/OBL LT / PROCEDURE REASON: Injury of left ankle, initial encounter * * * * Physician Interpretation * * * * TITLE: XR ANKLE 3V AP/LAT/OBL LT CLINICAL INDICATION: Ankle injury TECHNIQUE: 3 view radiographic study of the left ankle COMPARISON: None FINDINGS: There is a sessile, broad-based exostosis arising from the lateral aspect of the distal tibial metaphysis which demonstrates cortical medullary continuity with the underlying bone. This exostosis abuts and results in remodeling and mild lateral bowing deformity of the distal fibular metadiaphysis. No acute fracture or dislocation identified. IMPRESSION IMPRESSION: Sessile broad-based exostosis arising from the lateral aspect of the distal tibia with secondary remodeling and mild lateral bowing deformity of the adjacent distal fibular shaft. No radiographic evidence of acute osseous injury. Adjuster Electrical Contacts: MIYA Transcribe Date/Time: Feb 17 2024 4:39P Dictated by : RACHEL DALY MD This examination was interpreted and the report reviewed and electronically signed by: RACHEL DALY MD on Feb 17 2024 4:41PM EST [facility] Radiology Study observation (narrative) [facility] XR Ankle - left AP and Later al and obliqueOrdered By: [facility]cf Provider on 02-17-2024 [facility] CNNURSEon 10-03-2023 CNNURSE Nurse Visit (OBGYWM) TOSIN PAVON ([id number]) 1990 F Date Time Provider Department 10/03/23 4:00 PM NURSE [employer] SWEEPER OPERATOR [facility] WSTR OBGYWM During your visit today, we recorded the following information about you: Blood pressure Weight Last Period 102/66 65.9 kg 10/01/23 Mary Rivas LPN 10/03/2023 4:12 PM Signed Schedule for Gardasil injections: Routine schedule is 0,2, and 6 months Minimum intervals: 4 weeks between doses 1 and 2 12 weeks between doses 2 and 3 4 day 'radha period' can be applied Gardasil Questions: Please note: if patient is overdue for a yearly exam, they will need to have yearly scheduled within the next 6 months at the time Gardasil is given. Was your last yearly exam more than 18 months ago? No. Are you ? No. Do you have an elevated temp? No. See immun/inj tab for lot #, expiration date. YULISSA Lees Kimberly, LPN 10/03/2023 4:11 PM Signed HUMAN PAPILLOMAVIRUS (HPV) What is HPV ? HPV (human papillomavirus) is a common virus that affects both females and males.Most types of HPV are harmless, do not cause any symptoms, and go away on their own. About 30 types of HPV are known as genital HPV since they affect the genital area.Some types are high risk and can cause cervical cancer or abnormal cells in the lining of the cervix that sometimes turn into cancer.Others are low risk and can cause genital warts and changes in the cervix that are benign (abnormal but noncancerous). WHO GETS GENITAL HPV ? Anyone who has any kind of sexual activity involving genital contact could get genital HPV. Because many people who have HPV may not show any signs or symptoms, they can transmit the virus without even knowing it. HPV is more common than you might think.In 2005, approximately 20 million Americans had genital HPV.More than 6 million new cases of genital HPV are diagnosed in the [place] every year. HOW DO I KNOW IF I HAVE HPV ? Because HPV may not show any signs or symptoms, you probably won't know you have it.Most women are diagnosed with HPV as a result of an abnormal Pap test.A Pap test (also known as a Pap smear) is part of a gynecological exam and helps detect abnormal cells in the lining of the cervix before they have the chance to become precancers or cervical cancer. Many cervical precancers (changes that could lead to cancer) are related to HPV and can be treated successfully if detected early.That's why early detection is so important. WHAT HAPPENS IF I GET HPV ? In most people, the body's defenses are enough to clear HPV. If not cleared by the body, some HPV types cause genital warts.Other types cause abnormal changes in the cells lining the cervix that can lead to precancers and even turn into cervical cancer later in life. CERVICAL CANCER WHAT IS CERVICAL CANCER ? Cervical Cancer is cancer of the cervix.The cervix is the part of the uterus that connects the upper part of the uterus (the womb) and the vagina. Cervical cancer is a serious condition that can be life threatening.When a woman becomes infected with certain high-risk types of HPV and does not clear the infection, abnormal cells can develop in the lining of the cervix. If not discovered early and treated, these abnormal cells can become cervical precancers and then possibly cancer.Most often this can take a number of years, although in rare cases it can happen within a year. WHO GETS CERVICAL CANCER ? About half of all females diagnosed with cervical cancer are between 35 and 55 years of age.What many of these women may not realize is that they were most likely exposed to one of the high-risk types of HPV during their teens and 20's. The [place] [employer] estimated that in 2005 there were 10,370 new cases of cervical cancer diagnosed in the [place], and 3,710 women from the disease. HOW DO I KNOW IF I HAVE CERVICAL CANCER ? The usual way to detect cervical cancer is through a Pap test.If the results of a Pap test indicate that you have abnormal cervical cells, it's important to follow your healthcare professional's recommendations for more testing, such as repeat Pap testing, HPV DNA testing, colposcopy (examination of the cervix through a magnifying device), and possible biopsy (obtaining a tissue sample for analysis in the lab). HOW IS CERVICAL CANCER TREATED ? The three main methods are surgery (an operation to remove the cancer), radiation therapy (using high energy beams to destroy cancer cells), and chemotherapy (using medications to disrupt the growth of cancer cells). Sometimes treatment includes two or more of these methods. Before choosing a treatment, a healthcare professional will consider the size of the cancer, whether it has spread, the woman's age and overall health, and patient preferences.The treatment that i (more content not included)... Normal [facility] CNNURSEon 06-03-2023 CNNURSE Nurse Visit (OBGYWM) TOSIN PAVON ([id number]) 1990 F Date Time Provider Department 06/03/23 4:00 PM NURSE [employer] SWEEPER OPERATOR [facility] OBGYWM During your visit today, we recorded the following information about you: Blood pressure Weight Last Period 130/92 65.3 kg 05/27/23 Lisandra Ann, RIKKI 06/03/2023 4:14 PM Signed Patient identified by name and date of . Tosin Pavon is here for her HPV Gardasil vaccination, injection # two of the series. Patient ?No Gardasil injection was given without incident. See immunizations for details of immunizations administered today. VIS sheet provided: Yes Patient advised to follow up in 4 months from the 2nd injection Provider Beatriz Rodriguez MD was present in office at time of injection. RIKKI Thomas Jennifer, RN 06/03/2023 4:05 PM Signed Gardasil Gardasil is a vaccine to protect against Human Papillomavirus (HPV) types 6, 11, 16, 18, 31,33,45, 52, 58. These viruses cause cancer and precancerous lesions on the cervix (opening between vagina and uterus), in the vagina and on the vulva (skin around the outside of the vagina) as well as genital warts. The vaccine cannot cause these diseases and cannot treat them if already present. Gardasil works best if given before contact with HPV. Most people are exposed to HPV soon after starting sexual activity. The vaccine is recommended between the ages of 9 and 45. Gardasil does not protect against all strains of HPV. Women who receive the vaccine still need to have regular pelvic exams and cervical cancer screening with the pap smear. You should ask your doctor if Gardasil is right for you if you have a weakened immune system, a bleeding disorder, plan to become soon or have a current illness causing fever. Gardasil is not recommended for women. You should be sure your doctor is aware of any allergies you have and all medications and herbal supplements you take. Gardasil is given to those ages 9-14 in 2 doses at 0 and 8 months. In ages 15-45, three injections are given at 0,2,6 months. Common side effects include pain, redness, itching and swelling at the injection site, nausea, fever, dizziness and fainting. Rare but potentially serious reactions have been reported. These include allergic reaction, swollen glands, joint and muscle pain, weakness and Guillain-[place] syndrome. Allergies As of Date: 06/03/2023 Noted Allergy Reaction LEXAPRO (ESCITALOPRAM) 04/24/2023 14 - Other: See Comments Comments: Decreased libido Date Reviewed: 06/03/2023 Reviewed by: Highman, Lisandra, RN - Fully Assessed Reason for Visit: Gardasil Injection [1654] Primary Visit Diagnosis:Need for prophylactic vaccination/inoculati on against viral disease [Z23] Prescriptions as of 06/03/2023 - FLUoxetine (PROZAC) 20 mg capsule Take 1 capsule by mouth once daily. Problem List As Of Date 06/03/2023 Noted Resolved Sebaceous cyst [L72.3] 07/14/2013 06/12/2018 Quit smoking [Z87.891] 05/14/2018 06/12/2018 Family history of congenital heart defect [Z82.*05/14/2018 06/12/2018 History of rectal bleeding [Z87.19] 05/14/2018 06/10/2019 Patient request for diagnostic testing [Z01.89] 05/14/2018 06/12/2018 Positive urine drug screen [R82.5] 05/21/2018 06/12/2018 Current with history of spontaneous a*10/15/2018 08/05/2019 Marijuana use [F12.90] 11/15/2018 Encounter for supervision of other normal pregn*12/08/2018 08/05/2019 Rh negative state in antepartum period [O26.899*12/09/2018 08/05/2019 Other instructions from your clinician: Gardasil Gardasil is a vaccine to protect against Human Papillomavirus (HPV) types 6, 11, 16, 18, 31,33,45, 52, 58. These viruses cause cancer and precancerous lesions on the cervix (opening between vagina and uterus), in the vagina and on the vulva (skin around the outside of the vagina) as well as genital warts. The vaccine cannot cause these diseases and cannot treat them if already present. Gardasil works best if given before contact with HPV. Most people are exposed to HPV soon after starting sexual activity. The vaccine is recommended between the ages of 9 and 45. Gardasil does not protect against all strains of HPV. Women who receive the vaccine still need to have regular pelvic exams and cervical cancer screening with the pap smear. You should ask your doctor if Gardasil is right for you if you have a weakened immune system, a bleeding disorder, plan to become soon or have a current illness causing fever. Gardasil is not recommended for women. You should be sure your doctor is aware of any allergies you have and all medications and herbal supplements you take. Gardasil is given to those ages 9-14 in 2 doses at 0 and 8 months. In ages 15-45, three injections are given at 0,2,6 months. Common side effects include (more content not included)... Normal [facility] CNPNon 04-25-2023 CNPN Telephone (PSYLME) TOSIN PAVON ([id number]) 1990 F Date Time Provider Department 04/25/23 LISANDRA HATHAWAY PSYLME During your visit today, we recorded the following information about you: Lisandra Hathaway LPCC 04/25/2023 10:58 AM Signed Behavioral Health Social Work Progress Note Patient identified for [facility] from: PCP Reason for referral: Resources Behavioral Health Resources: Psychology - talk therapy [facility] encounter type: Telephone Encounter Attempts to Outreach: 1 attempt Patient Discharged?: No Patient reported that caregiver was able to meet their needs today?: N/A Phone call placed today that went to [employer]. Left my contact information and brief nature of call. Initial outreach also completed via [employer] sending list of in network providers with insurance. AMAN Cline-S April 25, 2023 Allergies As of Date: 04/25/2023 Noted Allergy Reaction LEXAPRO (ESCITALOPRAM) 04/24/2023 14 - Other: See Comments Comments: Decreased libido Date Reviewed: 04/24/2023 Reviewed by: Elaine Davies Ma - Fully Assessed Reason for Visit: consult [Other] Prescriptions as of 04/25/2023 - cephALEXin (KEFLEX) 500 mg capsule Take 1 capsule by mouth three times a day for 7 days. - mupirocin (BACTROBAN) 2 % ointment Apply to affected area three times a day for 10 days. - FLUoxetine (PROZAC) 20 mg capsule Take 1 capsule by mouth once daily. Problem List As Of Date 04/25/2023 Noted Resolved Sebaceous cyst [L72.3] 07/14/2013 06/12/2018 Quit smoking [Z87.891] 05/14/2018 06/12/2018 Family history of congenital heart defect [Z82.*05/14/2018 06/12/2018 History of rectal bleeding [Z87.19] 05/14/2018 06/10/2019 Patient request for diagnostic testing [Z01.89] 05/14/2018 06/12/2018 Positive urine drug screen [R82.5] 05/21/2018 06/12/2018 Current with history of spontaneous a*10/15/2018 08/05/2019 Marijuana use [F12.90] 11/15/2018 Encounter for supervision of other normal pregn*12/08/2018 08/05/2019 Rh negative state in antepartum period [O26.899*12/09/2018 08/05/2019 Encounter Status:Closed by LISANDRA HATHAWAY on 04/25/23 Normal [facility] CNOVon 04-24-2023 CNOV Office Visit (FAMPWS ) TOSIN PAVON ([id number]) 1990 F Date Time Provider Department 04/24/23 4:00 PM ROBYN BOWMAN FAMPWS During your visit today, we recorded the following information about you: Pulse Respiration Blood pressure Weight 70/minute 16/minute 122/70 62.6 kg Last Period 04/24/23 Robyn Bowman MD 04/28/2023 9:03 PM Signed Chief Complaint Patient presents with: Medication Follow-up HPI Tosin Pavon is a 33 year old female who presents here today for medication follow up. Pt is here to discuss changing from Lexapro to Wellbutrin to treat anxiety and depression. She states that the Lexapro is making it hard for her to orgasm. She denies much decreased libido but harder to get full pleasure. She has been off the Lexapro for 2 days. Has had withdrawal effects of insomnia and shaky sound in her brain. Has been on Zoloft in the past. She was just seen in [facility] Rash today, started on Keflex and Bactroban. 04/24/2023 1617 Last Filed Value TAMIKA-7 - over the last 2 weeks... Feeling nervous, anxious, or on edge Several days Several days Not being able to stop or control worrying Several days Several days Worrying too much about different things Several days Several days Trouble relaxing Not at all Not at all Being so restless that it is hard to sit still Not at all Not at all Becoming easily annoyed or irritable Several days Several days Feeling afraid, as if something awful might happen Not at all Not at all How difficult to do work, care for home, get along with people Somewhat difficult Somewhat difficult TAMIKA-2 Total Score 2 2 TAMIKA-7 Total Score 4 4 TAMIKA-7 Score 4 4 04/24/2023 1618 Last Filed Value PHQ-9 Little interest or pleasure in doing things Several days Several days Feeling down, depressed, or hopeless Several days Several days Trouble falling or staying asleep, or sleeping too much Several days Several days Feeling tired or having little energy Several days Several days Poor appetite or overeating Not at all Not at all Feeling bad about yourself - or that you are a failure or have let yourself or your family down Several days Several days Trouble concentrating on things, such as reading the newspaper or watching television Not at all Not at all Moving or speaking so slowly that other people could have noticed. Or the opposite - being so fidgety or restless that you have been moving around a lot more than usual Not at all Not at all Thoughts that you would be better off , or of hurting yourself in some way Not at all Not at all If you checked off any problems, how difficult have these problems made it for you to do your work, take care of things at home, or get along with other people? Somewhat difficult Somewhat difficult PHQ-9 score 5 5 PHQ-9 Score 5 5 PHQ-2 score 2 2 PHQ-2 Score 2 2 Past medical history, appointments, medications, allergies reviewed. Previous Medical History PAST MEDICAL HISTORY Diagnosis Date Chlamydia age [address] Mckeon at [facility] Previous Surgical History PAST SURGICAL HISTORY Procedure Laterality Date PAST SURGICAL HISTORY OF wisdom teeth [facility] (OFFICE [facility]) 2018 Family History FAMILY HISTORY Problem Relation Age of Onset No Known Problems Paternal Grandmother Cancer Paternal Grandfather lung No Known Problems Maternal Grandmother No Known Problems Mother No Known Problems Father No Known Problems Brother None Other Patient Allergies ALLERGIES No Known Allergies Current Medications Current Outpatient Medications on File Prior to Visit Medication Sig cephALEXin (KEFLEX) 500 mg capsule Take 1 capsule by mouth three times a day for 7 days. mupirocin (BACTROBAN) 2 % ointment Apply to affected area three times a day for 10 days. escitalopram oxalate (LEXAPRO) 10 mg tablet Take 1 tablet by mouth daily at bedtime. No current facility-administered medications on file prior to visit. Social History Social History Tobacco Use Smoking status: Former Packs/day: 0.50 Years: 20.00 Additional pack years: 0.00 Total pack years: 10.00 Types: Cigarettes Quit date: 05/01/2018 Years since quittin.9 Smokeless tobacco: Never Vaping Use Vaping Use: current everyday user Substances: Nicotine, Flavoring Devices: Pre-filled or refillable cartridge Substance Use Topics Alcohol use: Yes Comment: occasional Drug use: No Review of Symptoms REVIEW OF SYSTEMS See HPI EXAM: BP 122/70 Pulse 70 Resp 16 Wt 62.6 kg (138 lb) LMP 04/24/2023 (Exact Date) BMI 23.50 kg/m? General Appearance: Well appearing, alert, in no acute distress, well-hydrated, well nourished.. PSYCH: Posture and motor behavior: sitting erect in the chair Dress, grooming, personal hygiene: normal dress and grooming Facial express (more content not included)... Normal [facility] Office Visit ([facility] ) TOSIN PAVON ([id number]) 1990 F Date Time Provider Department 04/24/23 2:45 PM VIRAL PARISH [facility] During your visit today, we recorded the following information about you: Temperature Pulse Respiration Blood pressure 98.2 degrees 67/minute 16/minute 122/72 Weight 62.7 kg Viral Parish APRN.CNP 04/24/2023 2:54 PM Signed Subjective HPI HPI Tosin Pavon is a 33 year old female who presents today for CC of itchy painful rash. This started 1 month ago, started to go away, patient scratched it, then it worsened. Has tried otc medication for relief. Symptoms are worsened by nothing. 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 .Patient presents with: Rash: 1 month painful and itchy. PAST MEDICAL HISTORY Diagnosis Date Chlamydia age [address] Mckeon at [facility] PAST SURGICAL HISTORY Procedure Laterality Date PAST SURGICAL HISTORY OF wisdom teeth [facility] ([facility]ICE [facility]) 2017 ALLERGIES Patient has no known allergies. MEDICATIONS escitalopram oxalate (LEXAPRO) 10 mg tablet Take 1 tablet by mouth daily at bedtime. FAMILY HISTORY Problem Relation Age of Onset No Known Problems Paternal Grandmother Cancer Paternal Grandfather lung No Known Problems Maternal Grandmother No Known Problems Mother No Known Problems Father No Known Problems Brother None Other Social History Tobacco Use Smoking status: Former Packs/day: 0.50 Years: 20.00 Additional pack years: 0.00 Total pack years: 10.00 Types: Cigarettes Quit date: 05/01/2018 Years since quittin.9 Smokeless tobacco: Never Vaping Use Vaping Use: current everyday user Substances: Nicotine, Flavoring Devices: Pre-filled or refillable cartridge Substance Use Topics Alcohol use: Yes Comment: occasional Drug use: No Review of Systems Constitutional: Negative for fever. Objective Blood pressure 122/72, pulse 67, temperature 36.8 ?C (98.2 ?F), resp. rate 16, weight 62.7 kg (138 lb 3.2 oz), last menstrual period 03/22/2023, SpO2 98 %. Physical Exam Constitutional: General: She is not in acute distress. Appearance: She is not toxic-appearing or diaphoretic. HENT: Head: Normocephalic and atraumatic. Pulmonary: Effort: Pulmonary effort is normal. No accessory muscle usage or respiratory distress. Skin: Neurological: Mental Status: She is alert and oriented to person, place, and time. ASSESSMENT/PLAN: 1. Rash - ICD9: 782.1, ICD10: R21 Unclear etiology, but currently looks like secondary impetigo -use medication as prescribed -follow up if symptoms persist, worsen, change - CEPHALEXIN 500 MG CAPSULE - MUPIROCIN 2 % TOPICAL OINTMENT Viral Parish APRN.HOSPITALITY SERVICES MANAGER Allergies As of Date: 04/24/2023 (No Known Allergies) Date Reviewed: 04/24/2023 Reviewed by: Viral Parish APRN.HOSPITALITY SERVICES MANAGER - Fully Assessed Reason for Visit: Rash [1087] Cmt: 1 month painful and itchy. Primary Visit Diagnosis:Rash [R21] Order(s):cephALEXin (KEFLEX) 500 mg capsuleTake 1 capsule by mouth three times a day for 7 days.Disp: 21 capsuleRfl: 0 mupirocin (BACTROBAN) 2 % ointmentApply to affected area three times a day for 10 days.Disp: 22 gRfl: 1 Prescriptions as of 04/24/2023 - cephALEXin (KEFLEX) 500 mg capsule Take 1 capsule by mouth three times a day for 7 days. - mupirocin (BACTROBAN) 2 % ointment Apply to affected area three times a day for 10 days. - escitalopram oxalate (LEXAPRO) 10 mg tablet Take 1 tablet by mouth daily at bedtime. Problem List As Of Date 04/24/2023 Noted Resolved Sebaceous cyst [L72.3] 07/14/2013 06/12/2018 Quit smoking [Z87.891] 05/14/2018 06/12/2018 Family history of congenital heart defect [Z82.*05/14/2018 06/12/2018 History of rectal bleeding [Z87.19] 05/14/2018 06/10/2019 Patient request for diagnostic testing [Z01.89] 05/14/2018 06/12/2018 Positive urine drug screen [R82.5] 05/21/2018 06/12/2018 Current with history of spontaneous a*10/15/2018 08/05/2019 Marijuana use [F12.90] 11/15/2018 Encounter for supervision of other normal pregn*12/08/2018 08/05/2019 Rh negative state in antepartum period [O26.899*12/09/2018 08/05/2019 Prescriptions ordered this encounter Disp Refills Start End CEPHALEXIN 500 MG CAPSULE 21 c* 0 04/24/2023 05/01/2023 Route: ORAL Sig: Take 1 capsule by mouth three times a day for 7 days. MUPIROCIN 2 % TOPICAL OINTMENT 22 g 1 04/24/2023 05/04/2023 Route: TOPICAL Sig: Apply to affected area three times a day for 10 days. Encounter Status:Closed by VIRAL PARISH on 04/24/23 [facility] CNOVon 04-02-2023 CNOV Office Visit (OBGYWM ) TOSIN PAVON ([id number]) 1990 F Date Time Provider Department 04/02/23 1:40 PM PRITI SCHAFFER OBGYWElyse During your visit today, we recorded the following information about you: Blood pressure Weight Height Last Period 126/78 63 kg 1.632 m 03/22/23 Kita Taylor RN 04/02/2023 4:36 PM Signed Tosin is a 33 year old who presents for an annual gynecologic exam without complaints. Recently dx w/ BV but hasn't picked up med yet Menses: cycles every 28 days and 2-5 days of flow. stops and starts Contraception: condoms HPV vaccine: No Last Pap: 04/20/2021 nASCUS + HRHPV HPV: 04/24/2021 negative History of abnormal pap: No Last mammogram: never Sexually active: Yes OB History T1 L1 SAB0 IAB0 Ectopic0 Multiple0 Live Births1 Complex Care Nurse Practitioner History LMP: 03/22/2023 (Exact Date), Having periods Age at Menarche: Age at First : Age at Menopause: Complex Care Nurse Practitioner History Comments: Sexual Activity: Yes; Male Contraception: No contraception data on record PAST MEDICAL HISTORY Diagnosis Date Chlamydia age [address] Mckeon at [facility] PAST SURGICAL HISTORY Procedure Laterality Date PAST SURGICAL HISTORY OF wisdom teeth [facility] ([facility]ICE [facility]) 2018 FAMILY HISTORY Problem Relation Age of Onset No Known Problems Paternal Grandmother Cancer Paternal Grandfather lung No Known Problems Maternal Grandmother No Known Problems Mother No Known Problems Father No Known Problems Brother None Other SOCIAL HISTORY Social History Tobacco Use Smoking status: Former Packs/day: 0.50 Years: 20.00 Additional pack years: 0.00 Total pack years: 10.00 Types: Cigarettes Quit date: 05/01/2018 Years since quittin.9 Smokeless tobacco: Never Vaping Use Vaping Use: current everyday user Substances: Nicotine, Flavoring Devices: Pre-filled or refillable cartridge Substance Use Topics Alcohol use: Yes Comment: occasional Drug use: No REVIEW OF SYSTEMS Abdomen: No abdominal pain, nausea, vomiting, diarrhea, or constipation. No bloating, early satiety, indigestion, or increased flatulence. Bladder: No dysuria, gross hematuria, urinary frequency, urinary urgency, or incontinence. Breast: No breast lumps, nipple d/c, overlying skin changes, redness or skin retraction. Allergies and current medication updated:Yes EXAM: BP 126/78 Ht 5' 4.25 (1.63m) Wt 139 lb (63.1kg) LMP 03/22/2023 BMI 23.67 kg/(m2). GENERAL: pleasant, female in no apparent distress HEENT: Normocephalic, atraumatic, mucus membranes moist, and no lesions NECK: Supple, full range of motion, no adenopathy, and thyroid normal DERMATOLOGY: Normal, without lesions, non-icteric, and non-hirsute BREAST: soft, non-tender, symmetric, no dominant mass, normal nipple-areolar complex, no lymphadenopathy, and no nipple discharge CHEST: Normal inspiratory effort ABDOMEN: soft, non-tender, and no masses PELVIC: external genitalia normal, normal Bartholin's glands, urethra, Atkinson's glands, no vulvar lesions, no cervical lesions, good vaginal support, physiologic discharge present, normal appearing perineal body and perianal region BIMANUAL: uterus normal size, shape and consistency, no adnexal masses, and non-tender RECTOVAGINAL: deferred. NEURO: alert and oriented x3,exam grossly non-focal EXTREMITIES: normal ASSESSMENT/PLAN: 1) Health maintenance: Pap done with HPV. HPV vaccine: accepts 2) Contraception: condoms. Contraceptive options reviewed and information provided. 3) STD screening: Declined STD check. 4) Follow up one year or sooner as needed Priti Schaffer MD Patient identified by name and date of . Tosin Pavon is here for her HPV 9 vaccination, injection # one of the series. Patient ?No Gardasil injection was given without incident. See immunizations for details of immunizations administered today. VIS sheet provided: Yes Patient advised to follow up in 2 months from the 1st injection Provider Dr Schaffer was present in office at time of injection. MD Victor Manuel Arevalo, Priti Dahl MD 04/02/2023 2:06 PM Signed Gardasil Gardasil is a vaccine to protect against Human Papillomavirus (HPV) types 6, 11, 16, 18, 31,33,45, 52, 58. These viruses cause cancer and precancerous lesions on the cervix (opening between vagina and uterus), in the vagina and on the vulva (skin around the outside of the vagina) as well as genital warts. The vaccine cannot cause these diseases and cannot treat them if already present. Gardasil works best if given before contact with HPV. Most people are exposed to HPV soon after starting sexual activity. The vaccine is recommended between the ages of 9 and 45. Gardasil does not protect against all strains of HPV. Women who receive the vaccine still need to have regu (more content not included)... Normal [facility] HPV W/GENOTYPE THIN PREPon 1 HPV 16 Ag Ql (Unsp spec) Negative Normal Negative for HPV DNA high risk type 16 by PCR [facility] Comment on above: Order Comment: Speci men Type: FLUID SPECIMENOrdering Facility: [facility] Address: [address] [place] [address] Performed By: #### H PVHRT ####[facility] LABCLIA [id number] [facility] [id number] [address] [place] HPV 18 Ag Ql (Unsp spec) Negative Normal Negative for HPV DNA high risk type 18 by PCR [facility] Comment on above: Order Comment: Speci men Type: FLUID SPECIMENOrdering Facility: [facility] Address: [address] [place] [address] Performed By: #### H PVHRT ####[facility] LABCLIA [id number] [place] [address] [place] HPV 31+33+35+39+45+51+5 2+56+58+59+66+68 DNA LAUREN+probe Ql (Cvx) Negative for HPV DNA high risk types: 31,33,35,39,45,51,52, 56,58,59,66,68 by PCR. Normal Negative for HPV DNA high risk types: 31,33,35,39,45,51 ,52,56,58,59,66,6 8 by PCR. [facility] Comment on above: Order Comment: Speci men Type: FLUID SPECIMENOrdering Facility: [facility] Address: [address] [place] [address] Performed By: #### H PVHRT ####[facility] LABCLIA [id number] [place] [address] [place] PAP TESTon 04-02-2023 ADEQUACY Satisfactory for interpretation Normal [facility] Comment on above: Order Comment: Speci men Type: FLUID SPECIMENOrdering Facility: [facility] Address: [address] [place] [address] Performed By: #### L [id number] ####[facility] LABCLIA [id number] [place] [address] [place] CASE REPORT Normal [facility] Comment on above: Order Comment: Speci men Type: FLUID SPECIMENOrdering Facility: [facility] Address: [address] [place] [address] Result Comment: Gyne cologic Cytology Report Case: [id number] Authorizing Provider: Priti Schaffer MD Collected: 04/02/2023 02:25 PM Ordering Location: OB/Gynecology Received: 04/02/2023 04:55 PM First Screen: [place], [place], [place], ASCP Rescreen: [place], [place], CT, ASCP Specimen: Pap Test, ThinPrep, Cervix Performed By: #### L [id number] ####[facility] LABCLIA [id number] [place] [address] [place] CLINICAL HISTORY, CYTOLOGY, ROOFING APPRENTICE Previous Abnormal Pap Normal [facility] Comment on above: Order Comment: Speci men Type: FLUID SPECIMENOrdering Facility: [facility] Address: [address] [place] [address] Performed By: #### L [id number] ####[facility] LABCLIA [id number] [place] [address] [place] FINAL PERFORMING LAB Normal [facility] Comment on above: Order Comment: Speci men Type: FLUID SPECIMENOrdering Facility: [facility] Address: [address] [place] [address] Result Comment: Tech nical component, work checker screening performed at [facility], [address] [id number] CLIA# [id number] Diagnostic interpretation performed at [facility], [address] [id number] CLIA# [id number] Aspnet Developer: Cheko Zambrano M.D. Performed By: #### L [id number] ####[facility] LABCLIA [id number] [place] [address] [place] HPV REFLEX Yes HPV Normal [facility] Comment on above: Order Comment: Speci men Type: FLUID SPECIMENOrdering Facility: [facility] Address: [address] [place] [address] Performed By: #### L [id number] ####[facility] LABCLIA [id number] [place] [address] [place] INTERPRETATION, CYTOLOGY, ROOFING APPRENTICE Normal [facility] Comment on above: Order Comment: Speci men Type: FLUID SPECIMENOrdering Facility: [facility] Address: [address] [place] [address] Result Comment: Nega tive for intraepithelial lesion or malignancy. Performed By: #### L [id number] ####[facility] LABCLIA [id number] [place] [address] [place] LMP 03/22/2023 Normal [facility] Comment on above: Order Comment: Speci men Type: FLUID SPECIMENOrdering Facility: [facility] Address: [address] [place] [address] Performed By: #### L [id number] ####[facility] LABIA [id number] [place] [address] [place] PAP DISCLAIMER COMMENT The Pap Smear is a screening test for cervical cancer. False negative results occur with all screening tests, emphasizing the need for rescreening at recommended intervals, and clinical correlation. Normal [facility] Comment on above: Order Comment: Speci men Type: FLUID SPECIMENOrdering Facility: [facility] Address: [address] [place] [address] Performed By: #### L [id number] ####[facility] LABIA [id number] [place] [address] [place] PAP ACETYLENE CYLINDER PACKING MIXER COMMENT This specimen has been analyzed by the ThinPrep Imaging System, an automated imaging and review system, which assists the laboratory in evaluating cells on ThinPrep Pap tests. Following automated imaging, selected doe from every slide are reviewed by a work checker. Normal [facility] Comment on above: Order Comment: Speci men Type: FLUID SPECIMENOrdering Facility: [facility] Address: [address] [place] [address] Performed By: #### L [id number] ####[facility] LABIA [id number] [place] [id number] [place] Noris 04-01-2023 CNPN Telephone ([facility]) TOSIN PVAON ([id number]) 1990 F Date Time Provider Department 04/01/23 SHIRLENE LIU [facility] During your visit today, we recorded the following information about you: Shirlene Liu, SUKHWINDER 04/01/2023 1:50 PM Signed Call let patient know she tested positive for bacterial vaginosis. This is not an STD, this is bacterial overgrowth found in the vaginal area. We will treat with Flagyl. Recommend not drinking any alcohol while on this medication. Follow-up with women's health if not improving. Isa Baptiste LPN 04/01/2023 2:04 PM Signed Unable to reach patient. Mailbox full. Please try again later. YULISSA Rangel Sandra LPN 04/01/2023 7:56 PM Signed Still unable to reach patient.Akua Jasmine LPN, LPN 04/02/2023 8:28 AM Signed Still unable to reach patient.Ashlee Pickens LPN, MA 04/02/2023 5:59 PM Signed Pt had appt with Priti Schaffer today 04/02/23. Pt is aware of recent results and medication that needs picked and taken. Ashlee Maher MA Allergies As of Date: 04/01/2023 (No Known Allergies) Date Reviewed: 03/31/2023 Reviewed by: Ashlee Maher MA - Fully Assessed Reason for Visit: Results [95] Order(s):metroNIDAZOL E (FLAGYL) 500 mg tabletTake 1 tablet by mouth two times a day for 7 days.Disp: 14 tabletRfl: 0 Prescriptions as of 04/02/2023 - metroNIDAZOLE (FLAGYL) 500 mg tablet Take 1 tablet by mouth two times a day for 7 days. - escitalopram oxalate (LEXAPRO) 10 mg tablet Take 1 tablet by mouth daily at bedtime. Problem List As Of Date 04/01/2023 Noted Resolved Sebaceous cyst [L72.3] 07/14/2013 06/12/2018 Quit smoking [Z87.891] 05/14/2018 06/12/2018 Family history of congenital heart defect [Z82.*05/14/2018 06/12/2018 History of rectal bleeding [Z87.19] 05/14/2018 06/10/2019 Patient request for diagnostic testing [Z01.89] 05/14/2018 06/12/2018 Positive urine drug screen [R82.5] 05/21/2018 06/12/2018 Current with history of spontaneous a*10/15/2018 08/05/2019 Marijuana use [F12.90] 11/15/2018 Encounter for supervision of other normal pregn*12/08/2018 08/05/2019 Rh negative state in antepartum period [O26.899*12/09/2018 08/05/2019 Prescriptions ordered this encounter Disp Refills Start End METRONIDAZOLE 500 MG TABLET 14 t* 0 04/01/2023 04/08/2023 Route: ORAL Sig: Take 1 tablet by mouth two times a day for 7 days. Encounter Status:Closed by ASHLEE MAHER on 04/02/23 Normal [facility] BACTERIAL VAGINOSIS NAATon 1 Lactobacillus crispatus+gasseri+j ensenii + Gardnerella vaginalis + Atopobium vaginae rRNA LAUREN+probe Ql (Vag fld) Positive Abnormal Negative for bacterial vaginosis [facility] Comment on above: Order Comment: Speci men Type: SWABOrdering Facility: [facility] Address: [address] [place] [address] Performed By: #### B RAYMUNDO, [id number] ####[facility] LABCLIA [id number] [place] [address] [place] C. trachomatis+N. gonorrhoea e DNA LAUREN+probe Ql (Unsp spec)on 03-31-2023 C. trachomatis rRNA LAUREN+probe Ql (Unsp spec) Negative Normal Negative for Chlamydia trachomatis by amplificaton [facility] Comment on above: Order Comment: Speci men Type: SWABOrdering Facility: [facility] Address: [address] [place] [address] Performed By: #### B VAMP, [id number] ####[facility] LABCLIA [id number] [place] [address] [place] N. gonorrhoeae rRNA LAUREN+probe Ql (Unsp spec) Negative Normal Negative for Neisseria gonorrhoeae by amplification [facility] Comment on above: Order Comment: Speci men Type: SWABOrdering Facility: [facility] Address: [address] [place] [address] Performed By: #### B VAMP, [id number] ####[facility] LABCLIA [id number] [place] [address] [place] [address]/TRICHOMONAS NAATon 1 C. glabrata RNA LAUREN+probe Ql (Vag fld) Negative Normal Negative for Court glabrata [facility] Comment on above: Order Comment: Speci men Type: SWABOrdering Facility: [facility] Address: [address] [place] [address] Performed By: #### C VTV ####[facility] LABCLIA [id number] [place] [address] [place] [address] sp DNA LAUREN+probe Ql (Vag fld) Negative Normal Negative for Court species [facility] Comment on above: Order Comment: Speci men Type: SWABOrdering Facility: [facility] Address: [address] [place] [address] Performed By: #### C VTV ####[facility] LABCLIA [id number] [place] [address] [place] T. vaginalis DNA LAUREN+probe Ql (Unsp spec) Negative Normal Negative for Trichomonas vaginalis by amplification [facility] Comment on above: Order Comment: Speci men Type: SWABOrdering Facility: [facility] Address: [address] [place] [address] Performed By: #### C VTV ####[facility] LABCLIA [id number] [address] [address] [place] [facility] CNOVon 03-31-2023 CNOV Office Visit (UCWSTR ) TOSIN PAVON ([id number]) 1990 F Date Time Provider Department 03/31/23 3:45 PM CLAU DUARTE WS During your visit today, we recorded the following information about you: Temperature Pulse Respiration Blood pressure 98.1 degrees 79/minute 21/minute 128/86 Weight 61.9 kg Clau Duarte APRN.HOSPITALITY SERVICES MANAGER 03/31/2023 4:35 PM Signed This note was created using NoteWriter. Subjective Tosin Pavon is a 33 year old female. 33 year old female with PMH depression and anxiety presents for complaints of female Acute onset one week ago +itching +odor Denies sx Denies abdominal pain. Denies flank pain Denies fever or chills. Denies vaginal bleeding. Denies vaginal discharge. Endorses she had a new partner LMP-03/22/23 Denies homeopathic or OTC medications PACKAGER HAND. The history is provided by the patient. No foreign language teacher was used. Vaginal Problem This is a new problem. The current episode started in the past 7 days. The problem occurs constantly. The problem has been unchanged. Pertinent negatives include no abdominal pain, anorexia, arthralgias, change in bowel habit, chest pain, chills, congestion, coughing, diaphoresis, fatigue, fever, headaches, joint swelling, myalgias, nausea, neck pain, numbness, rash, sore throat, swollen glands, urinary symptoms, vertigo, visual change, vomiting or weakness. Nothing aggravates the symptoms. She has tried nothing for the symptoms. The treatment provided no relief. PAST MEDICAL HISTORY Diagnosis Date Chlamydia age [address] Mckeon at [facility] PAST SURGICAL HISTORY Procedure Laterality Date PAST SURGICAL HISTORY OF wisdom teeth [facility] (OFFICE IP[facility]) ALLERGIES Patient has no known allergies. MEDICATIONS escitalopram oxalate (LEXAPRO) 10 mg tablet Take 1 tablet by mouth daily at bedtime. fluconazole (DIFLUCAN) 150 mg tablet Take 1 tablet by mouth once daily for 1 day. FAMILY HISTORY Problem Relation Age of Onset No Known Problems Paternal Grandmother Cancer Paternal Grandfather lung No Known Problems Maternal Grandmother No Known Problems Mother No Known Problems Father No Known Problems Brother None Other Social History Tobacco Use Smoking status: Former Packs/day: 0.50 Years: 20.00 Additional pack years: 0.00 Total pack years: 10.00 Types: Cigarettes Quit date: 05/01/2018 Years since quittin.9 Smokeless tobacco: Never Vaping Use Vaping Use: current everyday user Substances: Nicotine, Flavoring Devices: Pre-filled or refillable cartridge Substance Use Topics Alcohol use: Yes Comment: occasional Drug use: No Review of Systems Constitutional: Negative for chills, diaphoresis, fatigue and fever. HENT: Negative for congestion and sore throat. Eyes: Negative for pain, discharge, redness and itching. Respiratory: Negative for apnea, cough, choking and chest tightness. Cardiovascular: Negative for chest pain. Gastrointestinal: Negative for abdominal pain, anorexia, change in bowel habit, nausea and vomiting. Genitourinary: Negative for vaginal bleeding, vaginal discharge and vaginal pain. +vaginal itching +vaginal odor Musculoskeletal: Negative for arthralgias, joint swelling, myalgias and neck pain. Skin: Negative for color change, pallor and rash. Allergic/Immunologic: Negative for environmental allergies, food allergies and immunocompromised state. Neurological: Negative for dizziness, vertigo, facial asymmetry, weakness, numbness and headaches. Hematological: Negative for adenopathy. Does not bruise/bleed easily. Psychiatric/Behaviora l: Negative for agitation and behavioral problems. Objective BP 128/86 Pulse 79 Temp 36.7 ?C (98.1 ?F) Resp 21 Wt 61.9 kg (136 lb 6.4 oz) LMP 05/04/2021 (Exact Date) SpO2 99% BMI 23.23 kg/m? Physical Exam Vitals and nursing note reviewed. Exam conducted with a special class welder present. Constitutional: General: She is not in acute distress. Appearance: Normal appearance. She is normal weight. She is not ill-appearing, toxic-appearing or diaphoretic. HENT: Head: Normocephalic and atraumatic. Right Ear: Ear canal and external ear normal. Left Ear: Ear canal and external ear normal. Nose: Nose normal. No congestion or rhinorrhea. Mouth/Throat: Mouth: Mucous membranes are moist. Pharynx: No oropharyngeal exudate or posterior oropharyngeal erythema. Eyes: General: Right eye: No discharge. Left eye: No discharge. Extraocular Movements: Extraocular movements intact. Conjunctiva/sclera: Conjunctivae normal. Pupils: Pupils are equal, round, and reactive to light. Cardiovascular: Rate and Rhythm: Normal rate and regular rhythm. Pulses: Normal pulses. Heart sounds: Normal heart sounds. No murmur heard. No friction rub. Pulmonary: Effort: Pulmonary effort is normal. No res (more content not included)... Normal [facility] UA DIP, URINE (POC)on 2022 BILIRUBIN UA (POCT) Negative Negative [facility] CLARITY UA (POCT) Clear [facility] COLOR UA (POCT) Yellow [facility] GLUCOSE UA (POCT) Negative Negative mg/dL [facility] Hemoglobin Ql (U) Small Abnormal Negative [facility] KETONE UA (POCT) Trace Negative mg/dL [facility] LEUKOCYTES UA (POCT) Negative Negative [facility] NITRITE UA (POCT) Negative Negative [facility] PH UA (POCT) 6.5 4.5 - 8.0 [facility] Protein Ql (U) Negative Negative mg/dL [facility] SPECIFIC GRAVITY UA (POCT) 1.025 1.005 - 1.030 [facility] UROBILINOGEN UA (POCT) 0.2 E.U./dL Normal E.U./dL [facility] HCG QUAL UR B/Oon 02-14-2023 status Negative neg - pos [facility] Quality Check Yes [facility] Vital Signs Date Time Vital Sign Value Performing Clinician Faci lity 03-12-2024 11:22-0400 Body mass index (BMI) [Ratio] 25.4 kg/m2 Beatriz Rodriguez MD Work Phone: [facility] 03-12-2024 11:22-040 Body weight 67.13 kg Beatriz Rodriguez MD Work Phone: [facility] 03-12-2024 11:22-0400 Diastolic blood pressure 70 mm[Hg] Beatriz Rodriguez MD Work Phone: [facility] 03-12-2024 11:22-0400 Systolic blood pressure 112 mm[Hg] Beatriz Rodriguez MD Work Phone: [facility] 02-19-2024 14:28-0400 Body height 162.6 cm Beatriz Rodriguez MD Work Phone: [facility] 02-19-2024 14:28-0400 Body mass index (BMI) [Ratio] 25.34 kg/m2 Beatriz Rodriguez MD Work Phone: [facility] 02-19-2024 14:28-0400 Body weight 66.95 kg Beatriz Rodriguez MD Work Phone: [facility] 02-19-2024 14:28-0400 Diastolic blood pressure 80 mm[Hg] Beatriz Rodriguez MD Work Phone: [facility] 02-19-2024 14:28-0400 Systolic blood pressure 120 mm[Hg] Beatriz Rodriguez MD Work Phone: [facility] 02-17-2024 13:46-0400 Body mass index (BMI) [Ratio] 25.46 kg/m2 Viral Parish KEY BED INSTALLER.HOSPITALITY SERVICES MANAGER Work Phone: [facility] 02-17-2024 13:46-0400 Body temperature 97.81 [degF] Viral Parish KEY BED INSTALLER.HOSPITALITY SERVICES MANAGER Work Phone: [facility] 02-17-2024 13:46-0400 Body weight 67.8 kg Viral Parish KEY BED INSTALLER.HOSPITALITY SERVICES MANAGER Work Phone: [facility] 02-17-2024 13:46-0400 Diastolic blood pressure 82 mm[Hg] Viral Parish KEY BED INSTALLER.HOSPITALITY SERVICES MANAGER Work Phone: [facility] 02-17-2024 13:46-0400 Heart rate 75 /min Viral Parish KEY BED INSTALLER.HOSPITALITY SERVICES MANAGER Work Phone: [facility] 02-17-2024 13:46-0400 Respiratory rate 18 /min Viral Parish KEY BED INSTALLER.HOSPITALITY SERVICES MANAGER Work Phone: [facility] 02-17-2024 13:46-0400 SaO2% (BldA) [Mass fraction] 98 % Viral Parish KEY BED INSTALLER.HOSPITALITY SERVICES MANAGER Work Phone: [facility] 02-17-2024 13:46-0400 Systolic blood pressure 128 mm[Hg] Viral Parish KEY BED INSTALLER.HOSPITALITY SERVICES MANAGER Work Phone: [facility] 10-03-2023 16:10-0400 Body weight 65.86 kg Nurse Wstr Work Phone: [facility] 10-03-2023 16:10-0400 Diastolic blood pressure 66 mm[Hg] Nurse Wstr Work Phone: [facility] 10-03-2023 16:10-0400 Systolic blood pressure 102 mm[Hg] Nurse Wstr Work Phone: [facility] 04-24-2023 16:06-0500 Body weight 62.6 kg Robyn Bowman MD Work Phone: [facility] 04-24-2023 16:06-0500 Diastolic blood pressure 70 mm[Hg] Robyn Bowman MD Work Phone: [facility] 04-24-2023 16:06-0500 Heart rate 70 /min Robyn Bowman MD Work Phone: [facility] 04-24-2023 16:06-0500 Respiratory rate 16 /min Robyn Bowman MD Work Phone: [facility] 04-24-2023 16:06-0500 Systolic blood pressure 122 mm[Hg] Robyn Bowman MD Work Phone: [facility] 04-24-2023 14:36-0500 Body temperature 98.2 [degF] Viral Parish KEY BED INSTALLER.HOSPITALITY SERVICES MANAGER Work Phone: [facility] 04-24-2023 14:36-0500 Body weight 62.69 kg Viral Parish KEY BED INSTALLER.HOSPITALITY SERVICES MANAGER Work Phone: [facility] 04-24-2023 14:36-0500 Diastolic blood pressure 72 mm[Hg] Viral Jem KEY BED INSTALLER.HOSPITALITY SERVICES MANAGER Work Phone: [facility] 04-24-2023 14:36-0500 Heart rate 67 /min Viral Jem KEY BED INSTALLER.HOSPITALITY SERVICES MANAGER Work Phone: [facility] 04-24-2023 14:36-0500 Respiratory rate 16 /min Viral Jem KEY BED INSTALLER.HOSPITALITY SERVICES MANAGER Work Phone: [facility] 04-24-2023 14:36-0500 SaO2% (BldA) [Mass fraction] 98 % Viral King KEY BED INSTALLER.HOSPITALITY SERVICES MANAGER Work Phone: [facility] 04-24-2023 14:36-0500 Systolic blood pressure 122 mm[Hg] Viral Jem KEY BED INSTALLER.HOSPITALITY SERVICES MANAGER Work Phone: [facility] 04-02-2023 13:51-0400 Body height 163.2 cm Priti Schaffer MD Work Phone: [facility] 04-02-2023 13:51-0400 Body weight 63.05 kg Priti Schaffer MD Work Phone: [facility] 04-02-2023 13:51-0400 Diastolic blood pressure 78 mm[Hg] Priti Schaffer MD Work Phone: [facility] 04-02-2023 13:51-0400 Systolic blood pressure 126 mm[Hg] Priti Schaffer MD Work Phone: [facility] 03-31-2023 15:52-0400 Body temperature 98.1 [degF] Clau Duarte KEY BED INSTALLER.HOSPITALITY SERVICES MANAGER Work Phone: [facility] 03-31-2023 15:52-0400 Body weight 61.87 kg Clau Duarte KEY BED INSTALLER.HOSPITALITY SERVICES MANAGER Work Phone: [facility] 03-31-2023 15:52-0400 Diastolic blood pressure 86 mm[Hg] Clau Duarte KEY BED INSTALLER.HOSPITALITY SERVICES MANAGER Work Phone: [facility] 10-16-2023 15:52-0400 Heart rate 79 /min Clau Duarte KEY BED INSTALLER.HOSPITALITY SERVICES MANAGER Work Phone: [facility] 03-31-2023 15:52-0400 Respiratory rate 21 /min Clau Duarte KEY BED INSTALLER.HOSPITALITY SERVICES MANAGER Work Phone: [facility] 03-31-2023 15:52-0400 SaO2% (BldA) [Mass fraction] 99 % Clau Duarte KEY BED INSTALLER.HOSPITALITY SERVICES MANAGER Work Phone: [facility] 03-31-2023 15:52-0400 Systolic blood pressure 128 mm[Hg] Clau Duarte KEY BED INSTALLER.HOSPITALITY SERVICES MANAGER Work Phone: [facility] 02-14-2023 11:01-0400 Body temperature 97.5 [degF] Emerald Praisler-Holden KEY BED INSTALLER.HOSPITALITY SERVICES MANAGER Work Phone: [facility] 02-14-2023 11:01-0400 Body weight 61.15 kg Emerald Toisler-Holden KEY BED INSTALLER.HOSPITALITY SERVICES MANAGER Work Phone: [facility] 02-14-2023 11:01-0400 Diastolic blood pressure 86 mm[Hg] Emerald Praisler-Wood KEY BED INSTALLER.HOSPITALITY SERVICES MANAGER Work Phone: [facility] 02-14-2023 11:01-0400 Heart rate 70 /min Emerald Praisler-Wood KEY BED INSTALLER.HOSPITALITY SERVICES MANAGER Work Phone: [facility] 02-14-2023 11:01-0400 Respiratory rate 21 /min Emerald Praisler-Wood KEY BED INSTALLER.HOSPITALITY SERVICES MANAGER Work Phone: [facility] 02-14-2023 11:01-0400 SaO2% (BldA) [Mass fraction] 99 % Emerald Praisler-Wood KEY BED INSTALLER.HOSPITALITY SERVICES MANAGER Work Phone: [facility] 02-14-2023 11:01-0400 Systolic blood pressure 122 mm[Hg] Emerald Praisler-Wood KEY BED INSTALLER.HOSPITALITY SERVICES MANAGER Work Phone: [facility] 11-29-2022 16:38-0400 Body temperature 98.1 [degF] Cherelle Rodriguez APRN.HOSPITALITY SERVICES MANAGER Work Phone: [facility] 11-29-2022 16:38-0400 Body weight 62.05 kg Cherelle Rodriguez APRN.HOSPITALITY SERVICES MANAGER Work Phone: [facility] 11-29-2022 16:38-0400 Diastolic blood pressure 100 mm[Hg] Cherelle Rodriguez APRN.HOSPITALITY SERVICES MANAGER Work Phone: [facility] 11-29-2022 16:38-0400 Heart rate 93 /min Cherelle Rodriguez APRN.HOSPITALITY SERVICES MANAGER Work Phone: [facility] 11-29-2022 16:38-0400 Respiratory rate 18 /min Cherelle Rodriguez APRN.HOSPITALITY SERVICES MANAGER Work Phone: [facility] 11-29-2022 16:38-0400 SaO2% (BldA) [Mass fraction] 98 % Cherelle Rodriguez APRN.HOSPITALITY SERVICES MANAGER Work Phone: [facility] 11-29-2022 16:38-0400 Systolic blood pressure 150 mm[Hg] Cherelle Rodriguez APRN.HOSPITALITY SERVICES MANAGER Work Phone: [facility] 03-27-2022 17:07-0400 Body temperature 97.59 [degF] Hank Abrams DO Work Phone: [facility] 03-27-2022 17:07-0400 Body weight 62.23 kg Hank Abrams DO Work Phone: [facility] 03-27-2022 17:07-0400 Diastolic blood pressure 72 mm[Hg] Hank Abrams DO Work Phone: [facility] 03-27-2022 17:07-0400 Heart rate 65 /min Hank Abrams DO Work Phone: [facility] 03-27-2022 17:07-0400 Respiratory rate 16 /min Hank Abrams DO Work Phone: [facility] 03-27-2022 17:07-0400 SaO2% (BldA) [Mass fraction] 99 % Hank Abrams DO Work Phone: [facility] 03-27-2022 17:07-0400 Systolic blood pressure 122 mm[Hg] Hank Abrams DO Work Phone: [facility] 01-15-2022 15:00-0400 Body temperature 98.1 [degF] Angeline Bogner PA-C Work Phone: [facility] 01-15-2022 15:00-0400 Body weight 59.42 kg Angeline Bogner PA-C Work Phone: [facility] 01-15-2022 15:00-0400 Diastolic blood pressure 70 mm[Hg] Angeline Bogner PA-C Work Phone: [facility] 01-15-2022 15:00-0400 Heart rate 82 /min Angeline Bogner PA-C Work Phone: [facility] 01-15-2022 15:00-0400 Respiratory rate 16 /min Angeline Bogner PA-C Work Phone: [facility] 01-15-2022 15:00-0400 SaO2% (BldA) [Mass fraction] 98 % Angeline Bogner PA-C Work Phone: [facility] 01-15-2022 15:00-0400 Systolic blood pressure 122 mm[Hg] Angeline Bogner PA-C Work Phone: [facility] Encounters Encounter Date Encounter Type Care Provider Facility Start: 03-16-2024 End: 03-18-2024 Telephone encounter Beatriz Rodriguez MD Work Phone: OB/Gynecology Comment on above: Results Start: 03-15-2024 End: 03-15-2024 ambulatory BEATRIZ RODRIGUEZ Facility:[facility] Start: 03-12-2024 End: 03-12-2024 ambulatory BEATRIZ RODRIGUEZ Facility:[facility] Start: 03-12-2024 End: 03-12-2024 Patient encounter procedure Beatriz Rodriguez MD Work Phone: OB/Gynecology Comment on above: Encounter for pregna ncy test, result positive (Primary Dx) Start: 03-11-2024 End: 03-11-2024 E-mail encounter from caregiver Beatriz Rodriguez MD Work Phone: OB/Gynecology Start: 03-11-2024 End: 03-11-2024 Patient encounter procedure Beatriz Rodriguez MD Work Phone: OB/Gynecology Comment on above: Dr. Aryan leyva 03/12/2024 Start: 03-08-2024 End: 03-09-2024 Telephone encounter Hank Abrams DO Work Phone: [facility] Comment on above: Results Start: 02-19-2024 End: 02-19-2024 ambulatory BEATRIZ RODRIGUEZ Facility:[facility] Start: 02-19-2024 End: 02-19-2024 Patient encounter procedure Beatriz Rodriguez MD Work Phone: OB/Gynecology Comment on above: Encounter for gyneco logical examination (general) (routine) without abnormal findings (Primary Dx); Anovulation Start: 02-19-2024 End: 02-19-2024 Patient encounter status Beatriz Rodriguez MD Work Phone: [facility] Start: 02-17-2024 End: 02-17-2024 ambulatory VIRAL Facility:[facility] Start: 02-17-2024 End: 02-17-2024 Subsequent hospital visit by physician Yvette [facility] [place] Work Phone: Radiology Comment on above: Injury of left ankle , initial encounter [S99.912A] Start: 02-17-2024 End: 02-23-2024 Telephone encounter Viral Parish APRN.CNP Work Phone: [facility] Comment on above: Results Start: 02-17-2024 End: 02-17-2024 ambulatory HANK ABRAMS Facility:[facility] Start: 02-17-2024 End: 02-17-2024 Patient encounter procedure Viral Parish APRN.HOSPITALITY SERVICES MANAGER Work Phone: [facility] Comment on above: Injury of left ankle , initial encounter (Primary Dx); Abnormal x-ray Start: 01-26-2024 ambulatory [facility] Comment on [facility]: Rash Start: 10-03-2023 End: 10-03-2023 ambulatory HANK ABRAMS Facility:[facility] Start: 10-03-2023 End: 10-03-2023 Nursing evaluation of patient and report Nurse Crisis Specialist [facility] Work Phone: OB/Gynecology Comment on above: Need for prophylacti c vaccination/inoculation against viral disease (Primary Dx) Start: 06-03-2023 End: 06-03-2023 ambulatory HANK ABRAMS Facility:[facility] Start: 05-23-2023 Refill Robyn Bowman MD Work Phone: [facility] [place] Comment on above: Refill Request Start: 05-02-2023 Chart abstracting Lisandra sumner [facility] Work Phone: Psychology Start: 04-25-2023 Telephone encounter Lisandra cortez [facility] Work Phone: Psychology Comment on above: bh consult Start: 04-24-2023 End: 04-24-2023 ambulatory ROBYN BOWMAN Facility:[facility] Start: 04-24-2023 End: 04-24-2023 ambulatory HANK ABRAMS Facility:[facility] Start: 04-24-2023 End: 04-24-2023 Patient encounter procedure Viral Parish APRN.CNP Work Phone: [facility] Comment on above: Rash (Primary Dx) Anxiety with depress ion (Primary Dx) Start: 04-09-2023 ambulatory Hank Busby son DO Work Phone: [facility] [place] Comment on above: Shingles Start: 04-02-2023 End: 04-02-2023 ambulatory PRITI SCHAFFER Facility:[facility] Start: 04-02-2023 End: 04-02-2023 Patient encounter procedure Priti Schaffer MD Work Phone: OB/Gynecology Comment on above: Encounter for gyneco logical examination (general) (routine) without abnormal findings (Primary Dx); Screening for cervical cancer; Encounter for screening for human papillomavirus (HPV); Papanicolaou smear of cervix with atypical squamous cells of undetermined significance (ASC-US); Cervical high risk human papillomavirus (HPV) DNA test positive; Need for prophylactic vaccination/inoculation against viral disease Start: 04-02-2023 End: 04-02-2023 Patient encounter status Priti Schaffer MD Work Phone: [facility] Start: 04-01-2023 Telephone encounter Shirlene prajapati PA-C Work Phone: [facility] Comment on above: Results Start: 03-31-2023 End: 03-31-2023 Patient encounter procedure Clau Duarte KEY BED INSTALLER.HOSPITALITY SERVICES MANAGER Work Phone: [facility] Comment on above: Vaginal itching (Joyce dave Dx); Vaginal odor Start: 03-31-2023 End: 03-31-2023 ambulatory Hank Abrams DO Work Phone: [facility] [place] Comment on above: Lexapro Start: 02-14-2023 End: 02-14-2023 Patient encounter procedure Emerald Boyce KEY BED INSTALLER.HOSPITALITY SERVICES MANAGER Work Phone: [facility] Comment on above: Mass of upper inner quadrant of left breast (Primary Dx); Abdominal bloating Start: 11-29-2022 End: 11-29-2022 Patient encounter procedure Cherelle Rodriguez KEY BED INSTALLER.HOSPITALITY SERVICES MANAGER Work Phone: [facility] Comment on above: Skin infection (Prim aaron Dx) Start: 10-17-2022 Refill Hank Busby son DO Work Phone: [facility] [place] Comment on above: Refill Request Start: 09-16-2022 Refill Hank looney DO Work Phone: [facility] Comment on above: Refill Request (SEE RX NOTES) Start: 07-16-2022 Refill Hank looney DO Work Phone: [facility] Comment on above: Refill Request Start: 03-27-2022 End: 03-27-2022 Patient encounter procedure Hank Abrams DO Work Phone: [facility] Comment on above: TAMIKA (generalized anx iety disorder) (Primary Dx) Start: 03-27-2022 ambulatory Hank Busby son DO Work Phone: [facility] [place] Comment on above: Setraline Start: 01-15-2022 End: 01-15-2022 Office outpatient visit 25 minutes Angeline Fisher PA-C Work Phone: [facility] Comment on above: Anxiety (Primary Dx) Start: 05-14-2018 End: 06-12-2018 Patient requested procedure Robyn Bowman MD Work Phone: [facility] Procedures Date Procedure Procedure Detail Performing Clinician Start: 02-17-2024 Radex ankle complete minimum 3 views Viral Parish KEY BED INSTALLER.HOSPITALITY SERVICES MANAGER Work Phone: Start: 03-31-2023 Urnls dip stick/tabl et rgnt auto w/o microscopy Clau Duarte KEY BED INSTALLER.HOSPITALITY SERVICES MANAGER Work Phone: Start: 02-14-2023 Urine test visual color cmprsn meths Emerald Boyce KEY BED INSTALLER.HOSPITALITY SERVICES MANAGER Work Phone: Plan of Treatment Date Care Activity Detail Author Start: 04-02-2029 Urine microalbumin profile [facility] Start: 04-02-2028 HPV Testing HPV Testing [facility] Start: 04-02-2028 Pap Testing Pap Testing [facility] Start: 04-02-2028 Screening for malign ant neoplasm of cervix [facility] Start: 04-10-2026 HPV TESTING HPV TESTING [facility] Start: 04-10-2026 PAP TESTING PAP TESTING [facility] Start: 04-02-2024 Screening for malign ant neoplasm of cervix Cervical Cancer Screening [facility] Start: 03-30-2024 End: 03-30-2024 Patient encounter procedure 03/30/2024 10:20 AM EDT Routine Office Visit OB/Gynecology [address] [place] [address] Priti Schaffer MD [address] [place], [place] [id number] [facility] Comment on above: [facility] Start: 03-30-2024 End: 03-30-2024 Patient encounter procedure 03/30/2024 8:45 AM EDT Initial Office Visit OB/Gynecology [address] [place] [address] Clau Porter APRN.CN [address] [place] [address] [facility] Comment on above: [facility] Start: 03-12-2024 End: 03-12-2024 Patient encounter procedure 03/12/2024 11:20 AM EDT Office Visit OB/Gynecology [address] [place] [address] Beatriz Rodriguez MD [address] [place] [address] positive test OB/Gynecology Comment on above: positive t est Start: 02-26-2024 End: 05-27-2024 Progesterone [Mass/volume] in Serum or Plasma [facility]GESTER[facility] Routine Anovulation Expected: 02/26/2024, Expires: 05/27/2024 [facility] Work Phone: Comment on above: Expected: 02/26/2024 , Expires: 05/27/2024 Start: 02-15-2024 Covid-19 Vaccine ( season) Covid-19 Vaccine ( season) [facility] Start: 02-15-2024 Covid-19 Vaccine ( season) Covid-19 Vaccine ( season) [facility] Start: 02-15-2024 Influenza vaccination [facility] Start: 12-14-2023 Influenza vaccination Influenza Vacc ine (#1) [facility] Comment on above: Postponed from 02/14 (Declined at this time) Start: 09-29-2023 9vhpv vacc 2/3 dose sched im use HPV VACCINE, 9-VALENT (GARDASIL 9) Immunization/Injection Routine Cervical high risk human papillomavirus (HPV) DNA test positive Need for prophylactic vaccination/inoculation against viral disease Expected: 09/29/2023 (Approximate) [facility] Work Phone: Comment on above: Expected: 09/29/2023 (Approximate) Start: 06-16-2023 Behavioral Health Screening Behavioral Health Screening [facility] Start: 06-01-2023 9vhpv vacc 2/3 dose sched im use HPV VACCINE, 9-VALENT (GARDASIL 9) Immunization/Injection Routine Cervical high risk human papillomavirus (HPV) DNA test positive Need for prophylactic vaccination/inoculation against viral disease Expected: 06/01/2023 (Approximate) [facility] Work Phone: Comment on above: Expected: 06/01/2023 (Approximate) Start: 04-30-2023 HPV Vaccine (2 - 3-d ose SCDM series) HPV Vaccine (2 - 3-dose SCDM series) [facility] Start: 03-27-2023 COVID-19 VACCINE (#1) COVID-19 VACCI NE (#1) [facility] Comment on above: Postponed from 07/12 (Declined at this time) Start: 02-14-2023 Covid-19 Vaccine ( season) Covid-19 Vaccine ( season) [facility] Start: 02-14-2023 Influenza vaccination [facility] Start: 12-13-2022 Influenza vaccination INFLUENZA (#1) [facility] Comment on above: Postponed from 02/14 (Declined at this time) Start: 06-16-2022 DEPRESSION ASSESSMENT DEPRESSION ASS ESSMENT [facility] Start: 02-14-2022 Influenza vaccination INFLUENZA (#1) [facility] Start: 01-28-2022 End: 03-30-2022 CBC W Auto Differential panel - Blood CBC + DIFF Lab Routine Anxiety Expected: 01/28/2022, Expires: 03/30/2022 [facility] Work Phone: Comment on above: Expected: 01/28/2022 , Expires: 03/30/2022 Start: 01-28-2022 End: 03-30-2022 Thyrotropin [Units/volume] in Serum or Plasma TSH BLD Lab Routine Anxiety Expected: 01/28/2022, Expires: 03/30/2022 [facility] Work Phone: Comment on above: Expected: 01/28/2022 , Expires: 03/30/2022 Start: 01-09-2011 Hepatitis B Vaccine (1 of 3 - 19+ 3-dose series) Hepatitis B Vaccine (1 of 3 - 19+ 3-dose series) [facility] Start: 01-09-2010 Anxiety Screening Anxiety Screening [facility] Start: 01-09-2010 Depression Screening Depression Scre ening [facility] Start: 2004 Adult depression screening assessment DEPRESSION SCREENING [facility] Start: 1992 COVID-19 VACCINE (#1) COVID-19 VACCI NE (#1) [facility] Start: 1992 HEPATITIS B (1 of 3 - 3-dose series) HEPATITIS B (1 of 3 - 3-dose series) [facility] Start: 1992 Hepatitis B Vaccine (1 of 3 - 3-dose series) Hepatitis B Vaccine (1 of 3 - 3-dose series) [facility] BACTERIAL VAGINOSIS NAAT BACTERIAL VAGINOSIS NAAT Lab Routine Vaginal itching 03/31/2023 4:22 PM EDT [facility] Work Phone: COURT/[place] NA[place] COURT/[place] NAAT Lab Routine Vaginal itching 03/31/2023 4:22 PM EDT [facility] Work Phone: Chlamydia trachomatis+Neisseria gonorrhoeae DNA [Presence] in Unspecified specimen by LAUREN with probe detection GONORRHEA/CHLAMYDIA NAAT Lab Routine Vaginal itching 03/31/2023 4:22 PM EDT [facility] Work Phone: End: 03-12-2025 Choriogonadotropin.beta subunit [Units/volume] in Serum or Plasma HCG QUANTITATIVE Lab Routine Encounter for test, result positive 2x per week for 4 Occurrences starting 03/12/2024 until 03/12/2025 [facility] Work Phone: Comment on above: 2x per week for 4 Oc currences starting 03/12/2024 until 03/12/2025 Choriogonadotropin.b eta subunit [Units/volume] in Serum or Plasma HCG QUANTITATIVE Lab Routine Encounter for test, result positive 03/12/2024 11:52 AM EDT [facility] End: 03-15-2024 SHARAN DIAGNOSTIC LEFT SHARAN DIAGNOSTIC LEFT Radiology STAT Mass of upper inner quadrant of left breast 1 Occurrences starting 02/14/2023 until 03/15/2024 [facility] Work Phone: Comment on above: 1 Occurrences starti ng 02/14/2023 until 03/15/2024 PAP TEST PAP TEST Lab Elke gaytan Encounter for gynecological examination (general) (routine) without abnormal findings Screening for cervical cancer Encounter for screening for human papillomavirus (HPV) Papanicolaou smear of cervix with atypical squamous cells of undetermined significance (ASC-US) Cervical high risk human papillomavirus (HPV) DNA test positive 04/02/2023 2:25 PM EDT [facility] Work Phone: Therapeutic prophylactic/dx injection subq/im THER/PROPH/DIAG INJ, SC/IM Procedures Routine Cervical high risk human papillomavirus (HPV) DNA test positive Need for prophylactic vaccination/inoculation against viral disease Ordered: 04/02/2023 [facility] Work Phone: Comment on above: Ordered: 04/02/2023 [facility] Immun[facility] Immunization Date Immunization Notes Care Provider Adelaida lyons 10-03-2023 Human Papillomavirus 9-valent vaccine Nurse Wstr Work Phone: [facility] 06-03-2023 Human Papillomavirus 9-valent vaccine Nurse Wstr Work Phone: [facility] 04-02-2023 Human Papillomavirus 9-valent vaccine Priti Schaffer MD Work Phone: [facility] Work Phone: 04-06-2019 influenza virus vacc ine, unspecified formulation Hank Abrams DO Work Phone: [facility] 04-05-2019 RHO(D) immune globul in- IV or IM Angeline Fisher PA-C Work Phone: [facility] Work Phone: 04-02-2019 tetanus toxoid, redu ha diphtheria toxoid, and acellular pertussis vaccine, adsorbed Angeline Fisher PA-C Work Phone: [facility] 06-12-2018 RHO(D) immune globul in- IV or IM Angeline Fisher PA-C Work Phone: [facility] Payers Date Payer Category Payer Medicaid PENDING 2022 Medicaid [id number] 2018 Medicaid [id number] Social History Date Type Detail Facility Start: 05-14-2018 End: 02-17-2024 Tobacco smoking status NHIS Ex-smoker [facility] Work Phone: Start: 05-01-1998 End: 05-01-2018 History of tobacco use Current smoker [facility] Work Phone: Start: 05-01-1998 End: 05-01-2018 History of tobacco use Cigarette Smoker [facility] Work Phone: Start: 05-14-2018 End: 03-12-2024 Cigarettes smoked current (pack per day) - Reported 0.5 [facility] Work Phone: Start: 05-14-2018 End: 02-17-2024 Tobacco use and exposure Smokeless tobacco non-user [facility] Work Phone: Start: 01-15-2022 End: 03-12-2024 Alcohol intake Current drinker of alcohol (finding) [facility] Start: 04-10-2021 History SDOH Alcohol Comment occasional [facility] Start: 1990 Sex Assigned At Not on file [facility] Start: 01-05-2022 End: 03-27-2022 Exposure to SARS-CoV-2 (event) Not sure [facility] Work Phone: Start: 02-14-2023 End: 03-12-2024 Tobacco use panel [facility] Work Phone: Adult Depression Screening Assessment 0 [facility] Work Phone: Clinical Notes 12-09-2018 to 03-16-2024 Telephone Encounter - Fiorella Stern RN - 03/16/2024 1:58 PM EDTTelephone Encounter - Fiorella Stern RN - 03/16/2024 1:58 PM EDTTelephone Encounter - Fiorella Stern RN - 03/16/2024 1:58 PM EDT Note Date & Type Note [facility] 03-16-2024 Telephone encounter Note Attempted to call patient. Unable to leave message because mailbox is full. Mychart message sent. Fiorella Stern RN [facility] 03-16-2024 Telephone encounter Note ----- Message from Beatriz Rodriguez MD sent at 03/16/2024 1:12 PM EDT ----- Hcg quants rising well. Needs new OB visit. Cancel 03/30 RR visit as needs new OB that week. Beatriz Rodriguez MD [facility] 03-16-2024 Miscellaneous Notes Attempted to call patient. Unable to leave message because mailbox is full. Mychart message sent. Fiorella Stern RN ----- Message from Beatriz Rodriguez MD sent at 03/16/2024 1:12 PM EDT ----- Hcg quants rising well. Needs new OB visit. Cancel 03/30 RR visit as needs new OB that week. Beatriz Rodriguez MD documented in this encounter [facility] 03-12-2024 Note HNO ID: [id number] Author: BEATRIZ RODRIGUEZ MD Service: ? Author Type: Physician Type: Progress Notes Filed: 03/12/2024 13:14 Note Text: Tosin Pavon is a 34 year old female who presents for problem visit. HPI: She presents with positive test. Patient denies complaints other than minimal nausea.. She is supposed to get an MRI on her ankle. OB History T1 L1 SAB0 IAB0 Ectopic0 Multiple0 Live Births1 Complex Care Nurse Practitioner History LMP: 02/04/2024 (Exact Date), Having periods Age at Menarche: Age at First : Age at Menopause: Complex Care Nurse Practitioner History Comments: Sexual Activity: Yes; Male Contraception: None PAST MEDICAL HISTORY Diagnosis Date Chlamydia age 19 TAMIKA (generalized anxiety disorder) Psoriasis Dr. Mckeon at [facility] PAST SURGICAL HISTORY Procedure Laterality Date PAST SURGICAL HISTORY OF wisdom teeth [facility] ([facility]) 2018 FAMILY HISTORY Problem Relation Age of Onset No Known Problems Paternal Grandmother Cancer Paternal Grandfather lung No Known Problems Maternal Grandmother No Known Problems Mother No Known Problems Father No Known Problems Brother None Other Social History Tobacco Use Smoking status: Former Current packs/day: 0.00 Average packs/day: 0.5 packs/day for 20.0 years (10.0 ttl pk-yrs) Types: Cigarettes Start date: 05/01/1998 Quit date: 05/01/2018 Years since quittin.8 Smokeless tobacco: Never Vaping Use Vaping status: current everyday user Substances: Nicotine Devices: Pre-filled or refillable cartridge Substance Use Topics Alcohol use: Yes Comment: occasional Drug use: No Current Outpatient Medications Medication Sig Jykssihb-Cg-Vnu-Fe-FA tab Take 1 tablet by mouth once daily. No current facility-administered medications for this visit. Allergies As of Date: 03/12/2024 Allergen Noted Reaction LEXAPRO [ESCITALOPRAM] 04/24/2023 Other: See Comments Fully Assessed 02/19/2024 Allergies and current medication updated:Yes SENSITIVE EXAM: Sensitive exam not performed. EXAM: LMP 02/04/2024 GENERAL: pleasant, female in no apparent distress ASSESSMENT AND PLAN: 34yo female with positive test Advised on vitamin B6 to help decrease nausea. Hcg quants ordered. Reviewed that MRI in is safe but don't recommend contrast. Orthopedic office called AND message left. Medical Decision Making: Problems: Low: Acute, uncomplicated illness or injury Data: Unique test(s) ordered: 2 Risk: Low: Low risk from testing/treatment Medical Decision Making Level: 3 - Low Karmon Aryan, MD [facility] 03-12-2024 History of Presen t illness Narrative Tosin Pavon is a 34 year old female who presents for problem visit. HPI: She presents with positive test. Patient denies complaints other than minimal nausea.. She is supposed to get an MRI on her ankle. OB History T1 L1 SAB0 IAB0 Ectopic0 Multiple0 Live Births1 Complex Care Nurse Practitioner History LMP: 02/04/2024 (Exact Date), Having periods Age at Menarche: Age at First : Age at Menopause: Complex Care Nurse Practitioner History Comments: Sexual Activity: Yes; Male Contraception: None PAST MEDICAL HISTORY Diagnosis Date Chlamydia age 19 TAMIKA (generalized anxiety disorder) Psoriasis Dr. Mckeon at [facility] PAST SURGICAL HISTORY Procedure Laterality Date PAST SURGICAL HISTORY OF wisdom teeth [facility] ([facility]) 2018 FAMILY HISTORY Problem Relation Age of Onset No Known Problems Paternal Grandmother Cancer Paternal Grandfather lung No Known Problems Maternal Grandmother No Known Problems Mother No Known Problems Father No Known Problems Brother None Other Social History Tobacco Use Smoking status: Former Current packs/day: 0.00 Average packs/day: 0.5 packs/day for 20.0 years (10.0 ttl pk-yrs) Types: Cigarettes Start date: 05/01/1998 Quit date: 05/01/2018 Years since quittin.8 Smokeless tobacco: Never Vaping Use Vaping status: current everyday user Substances: Nicotine Devices: Pre-filled or refillable cartridge Substance Use Topics Alcohol use: Yes Comment: occasional Drug use: No Current Outpatient Medications Medication Sig Gadkoeoa-Ee-Ddk-Fe-FA tab Take 1 tablet by mouth once daily. No current facility-administered medications for this visit. Allergies As of Date: 03/12/2024 Allergen Noted Reaction LEXAPRO [ESCITALOPRAM] 04/24/2023 Other: See Comments Fully Assessed 02/19/2024 Allergies and current medication updated:Yes SENSITIVE EXAM: Sensitive exam not performed. EXAM: LMP 02/04/2024 GENERAL: pleasant, female in no apparent distress ASSESSMENT AND PLAN: 34yo female with positive test Advised on vitamin B6 to help decrease nausea. Hcg quants ordered. Reviewed that MRI in is safe but don't recommend contrast. Orthopedic office called & message left. Medical Decision Making: Problems: Low: Acute, uncomplicated illness or injury Data: Unique test(s) ordered: 2 Risk: Low: Low risk from testing/treatment Medical Decision Making Level: 3 - Low Beatriz Rodriguez MD documented in this encounter [facility] 03-08-2024 Telephone encounter Note Faxed over release to [facility] med rec [facility] 03-08-2024 Miscellaneous Notes Faxed over release to [facility] med rec Cristina from [facility] calling in to get images pushed over to them of patient's ankle. X-ray done on 02/17/24. Nola Del Castillo March 08, 2024 9:00 AM documented in this encounter [facility] 03-08-2024 Telephone encounter Note Cristina from [facility] calling in to get images pushed over to them of patient's ankle. X-ray done on 02/17/24. Nola Del Castillo March 08, 2024 9:00 AM [facility] 02-23-2024 Telephone encounter Note viewed in [employer]. Janine Shi MA [facility] 02-23-2024 Miscellaneous Notes viewed in [employer]. Janine Shi MA Unable to get ahold of Pt. Isa Baptiste LPN Called to discuss xray results. Mailbox is full. Try to get ahold of patient to discuss xray results. documented in this encounter [facility] 02-20-2024 Telephone encounter Note Unable to get ahold of Pt. Isa Baptiste LPN [facility] 02-19-2024 Note HNO ID: [id number] Author: BEATRIZ RODRIGUEZ MD Service: ? Author Type: Physician Type: Progress Notes Filed: 02/19/2024 14:54 Note Text: Combination Man offered: Patient declines. Tosin is a 34 year old who presents for an annual gynecologic exam without complaints. She AND her fiance have been trying to conceive for 8 months. OPK's do not indicate ovulation. Her partner has never fathered a child. Menses: cycles every 28-30 days and 3 days of flow. Contraception: none HPV vaccine: N/A Last Pap: 04/11/2023 normal HPV: 04/05/2023 negative History of abnormal pap: Yes - 2020 Last mammogram: never OB History T1 L1 SAB0 IAB0 Ectopic0 Multiple0 Live Births1 Complex Care Nurse Practitioner History LMP: 02/04/2024 (Exact Date), Having periods Age at Menarche: Age at First : Age at Menopause: Complex Care Nurse Practitioner History Comments: Sexual Activity: Yes; Male Contraception: None PAST MEDICAL HISTORY age 19: Chlamydia No date: TAMIKA (generalized anxiety disorder) No date: Psoriasis Comment: Dr. Mckeon at [facility] SURGICAL HISTORY No date: PAST SURGICAL HISTORY OF Comment: wisdom teeth 2018: [facility] ([facility]) FAMILY HISTORY Problem Relation Age of Onset No Known Problems Paternal Grandmother Cancer Paternal Grandfather lung No Known Problems Maternal Grandmother No Known Problems Mother No Known Problems Father No Known Problems Brother None Other SOCIAL HISTORY Social History Tobacco Use Smoking status: Former Current packs/day: 0.00 Average packs/day: 0.5 packs/day for 20.0 years (10.0 ttl pk-yrs) Types: Cigarettes Start date: 05/01/1998 Quit date: 05/01/2018 Years since quittin.8 Smokeless tobacco: Never Vaping Use Vaping status: current everyday user Substances: Nicotine Devices: Pre-filled or refillable cartridge Substance Use Topics Alcohol use: Yes Comment: occasional Drug use: No REVIEW OF SYSTEMS Abdomen: No abdominal pain, nausea, vomiting, diarrhea, or constipation. No bloating, early satiety, indigestion, or increased flatulence. Bladder: No dysuria, gross hematuria, urinary frequency, urinary urgency, or incontinence. Breast: No breast lumps, nipple d/c, overlying skin changes, redness or skin retraction. Allergies and current medication updated:Yes EXAM: BP 120/80 Ht 5' 4 (1.63m) Wt 147 lb 9.6 oz (67.0kg) LMP 02/04/2024 BMI 25.32 kg/(m2). GENERAL: pleasant, female in no apparent distress BREAST: soft, non-tender, symmetric, no dominant mass, normal nipple-areolar complex, no lymphadenopathy, and no nipple discharge CHEST: Normal inspiratory effort ABDOMEN: soft, non-tender, and no masses PELVIC: external genitalia normal, normal Bartholin's glands, urethra, Atkinson's glands, no vulvar lesions, no cervical lesions, good vaginal support, physiologic discharge present, normal appearing perineal body and perianal region BIMANUAL: uterus normal size, shape and consistency, no adnexal masses, and non-tender RECTOVAGINAL: deferred. NEURO: alert and oriented x3,exam grossly non-focal EXTREMITIES: normal ASSESSMENT/PLAN: 1) Health maintenance: Pap/HPV up to date. Mammogram starting age 40. Nutrition, exercise and routine health maintenance exams reviewed. 2) Contraception: none. Contraceptive options reviewed and information provided. 3) Desires - day 21 progesterone ordered. Discussed that could order semen analysis on fiance if they want to proceed. 4) Follow up one year or sooner as needed Beatriz Rodriguez MD [facility] 02-19-2024 History of Presen t illness Narrative Combination Man offered: Patient declines. Tosin is a 34 year old who presents for an annual gynecologic exam without complaints. She & her fiance have been trying to conceive for 8 months. OPK's do not indicate ovulation. Her partner has never fathered a child. Menses: cycles every 28-30 days and 3 days of flow. Contraception: none HPV vaccine: N/A Last Pap: 04/11/2023 normal HPV: 04/05/2023 negative History of abnormal pap: Yes - 2020 Last mammogram: never OB History T1 L1 SAB0 IAB0 Ectopic0 Multiple0 Live Births1 Complex Care Nurse Practitioner History LMP: 02/04/2024 (Exact Date), Having periods Age at Menarche: Age at First : Age at Menopause: Complex Care Nurse Practitioner History Comments: Sexual Activity: Yes; Male Contraception: None PAST MEDICAL HISTORY age 19: Chlamydia No date: TAMIKA (generalized anxiety disorder) No date: Psoriasis Comment: Dr. Mckeon at [facility] SURGICAL HISTORY No date: PAST SURGICAL HISTORY OF Comment: wisdom teeth 2018: [facility] ([facility]) FAMILY HISTORY Problem Relation Age of Onset No Known Problems Paternal Grandmother Cancer Paternal Grandfather lung No Known Problems Maternal Grandmother No Known Problems Mother No Known Problems Father No Known Problems Brother None Other SOCIAL HISTORY Social History Tobacco Use Smoking status: Former Current packs/day: 0.00 Average packs/day: 0.5 packs/day for 20.0 years (10.0 ttl pk-yrs) Types: Cigarettes Start date: 05/01/1998 Quit date: 05/01/2018 Years since quittin.8 Smokeless tobacco: Never Vaping Use Vaping status: current everyday user Substances: Nicotine Devices: Pre-filled or refillable cartridge Substance Use Topics Alcohol use: Yes Comment: occasional Drug use: No REVIEW OF SYSTEMS Abdomen: No abdominal pain, nausea, vomiting, diarrhea, or constipation. No bloating, early satiety, indigestion, or increased flatulence. Bladder: No dysuria, gross hematuria, urinary frequency, urinary urgency, or incontinence. Breast: No breast lumps, nipple d/c, overlying skin changes, redness or skin retraction. Allergies and current medication updated:Yes EXAM: BP 120/80 Ht 5' 4 (1.63m) Wt 147 lb 9.6 oz (67.0kg) LMP 02/04/2024 BMI 25.32 kg/(m^2). GENERAL: pleasant, female in no apparent distress BREAST: soft, non-tender, symmetric, no dominant mass, normal nipple-areolar complex, no lymphadenopathy, and no nipple discharge CHEST: Normal inspiratory effort ABDOMEN: soft, non-tender, and no masses PELVIC: external genitalia normal, normal Bartholin's glands, urethra, Atkinson's glands, no vulvar lesions, no cervical lesions, good vaginal support, physiologic discharge present, normal appearing perineal body and perianal region BIMANUAL: uterus normal size, shape and consistency, no adnexal masses, and non-tender RECTOVAGINAL: deferred. NEURO: alert and oriented x3,exam grossly non-focal EXTREMITIES: normal ASSESSMENT/PLAN: 1) Health maintenance: Pap/HPV up to date. Mammogram starting age 40. Nutrition, exercise and routine health maintenance exams reviewed. 2) Contraception: none. Contraceptive options reviewed and information provided. 3) Desires - day 21 progesterone ordered. Discussed that could order semen analysis on fiance if they want to proceed. 4) Follow up one year or sooner as needed Beatriz Rodriguez MD documented in this encounter [facility] 02-17-2024 Telephone encounter Note Called to discuss xray results. Mailbox is full. Try to get ahold of patient to discuss xray results. [facility] Work Phone: 02-17-2024 History of Presen t illness Narrative Radiology Service Progress Note PATIENT NAME: Tosin Pavon DATE OF SERVICE: February 17, 2024 TIME: 4:27 PM PATIENT IDENTITY VERIFICATION COMPLETED USING TWO (2) IDENTIFIERS: Name and Date of confirmed by patient verbally. FALL SCREENING: Has the patient had 2 falls in the last year or 1 fall with injury or currently using an Ambulatory Assistive Device (Walker, Cane, Wheelchair, Crutches, etc.)? No PATIENT GENDER DATA: Female. status: : No status: NO. PATIENT RELEVANT IMPLANT DATA REVIEWED: Yes PATIENT PRESENTS WITH AN IMPLANTABLE OR ATTACHED ATMOSPHERIC PHYSICS PROFESSOR: No RADIOLOGY DEPARTMENT: General X-ray: Exam(s) Completed: Lower Extremity X-Ray(s): Ankle, Left PERIPHERAL IV DATA: Not applicable SIGNED BY: RT Shawn(Maira) February 17, 2024 4:27 PM documented in this encounter [facility] 02-17-2024 Note HNO ID: [id number] Author: YESSY SHEA RT(R) Service: ? Author Type: Movie Producer Type: Progress Notes Filed: 02/17/2024 16:34 Note Text: Radiology Service Progress Note PATIENT NAME: Tosin Pavon DATE OF SERVICE: February 17, 2024 TIME: 4:27 PM PATIENT IDENTITY VERIFICATION COMPLETED USING TWO (2) IDENTIFIERS: Name and Date of confirmed by patient verbally. FALL SCREENING: Has the patient had 2 falls in the last year or 1 fall with injury or currently using an Ambulatory Assistive Device (Walker, Cane, Wheelchair, Crutches, etc.)? No PATIENT GENDER DATA: Female. status: : No status: NO. PATIENT RELEVANT IMPLANT DATA REVIEWED: Yes PATIENT PRESENTS WITH AN IMPLANTABLE OR ATTACHED ATMOSPHERIC PHYSICS PROFESSOR: No RADIOLOGY DEPARTMENT: General X-ray: Exam(s) Completed: Lower Extremity X-Ray(s): Ankle, Left PERIPHERAL IV DATA: Not applicable SIGNED BY: RT Shawn(R) February 17, 2024 4:27 PM [facility] 02-17-2024 Note HNO ID: [id number] Author: VIRAL PARISH APRN.HOSPITALITY SERVICES MANAGER Service: ? Author Type: Nurse Practitioner Type: Progress Notes Filed: 02/17/2024 18:28 Note Text: Subjective HPI HPI Tosin Pavon is a 34 year old female who presents today for CC of left ankle injury. This started 1 month ago. Has tried otc medication, compression, ice for relief. Symptoms are worsened by rom. Denies numbness/tingling of left foot. .Patient presents with: left ankle pain: Rolled ankle 1 month ago PAST MEDICAL HISTORY age 19: Chlamydia No date: TAMIKA (generalized anxiety disorder) No date: Psoriasis Comment: Dr. Mckeon at [facility] PAST SURGICAL HISTORY No date: PAST SURGICAL HISTORY OF Comment: wisdom teeth 2018: [facility] ([facility]) ALLERGIES Lexapro [Escitalopram] MEDICATIONS FLUoxetine (PROZAC) 20 mg capsule Take 1 capsule by mouth once daily. (Patient not taking: Reported on 10/03/2023) FAMILY HISTORY Problem Relation Age of Onset No Known Problems Paternal Grandmother Cancer Paternal Grandfather lung No Known Problems Maternal Grandmother No Known Problems Mother No Known Problems Father No Known Problems Brother None Other Social History Tobacco Use Smoking status: Former Current packs/day: 0.00 Average packs/day: 0.5 packs/day for 20.0 years (10.0 ttl pk-yrs) Types: Cigarettes Start date: 05/01/1998 Quit date: 05/01/2018 Years since quittin.8 Smokeless tobacco: Never Vaping Use Vaping status: current everyday user Substances: Nicotine, Flavoring Devices: Pre-filled or refillable cartridge Substance Use Topics Alcohol use: Yes Comment: occasional Drug use: No ROS Objective Blood pressure 128/82, pulse 75, temperature 36.6 ?C (97.8 ?F), temperature source Tympanic, resp. rate 18, weight 67.8 kg (149 lb 7.6 oz), last menstrual period 10/01/2023, SpO2 98%. Physical Exam Constitutional: General: She is not in acute distress. Appearance: She is not toxic-appearing or diaphoretic. HENT: Head: Normocephalic and atraumatic. Pulmonary: Effort: Pulmonary effort is normal. No accessory muscle usage or respiratory distress. Musculoskeletal: Feet: Neurological: Mental Status: She is alert and oriented to person, place, and time. ASSESSMENT/PLAN: 1. Injury of left ankle, initial encounter - ICD9: 959.7, ICD10: S99.912A (primary diagnosis) Will refer to orthopedics for eval - XR ANKLE GENERAL 3V AP/LAT/OBL LEFT IMPRESSION: Sessile broad-based exostosis arising from the lateral aspect of the distal tibia with secondary remodeling and mild lateral bowing deformity of the adjacent distal fibular shaft. No radiographic evidence of acute osseous injury Dictated by : RACHEL DALY MD - CONSULT TO ORTHOPAEDICS 2. Abnormal x-ray - ICD9: 793.99, ICD10: R93.89 - CONSULT TO ORTHOPAEDICS Viral Parish APRN.[facility] 02-17-2024 History of Presen t illness Narrative Images from the original note were not included. Subjective HPI HPI Tosin Pavon is a 34 year old female who presents today for CC of left ankle injury. This started 1 month ago. Has tried otc medication, compression, ice for relief. Symptoms are worsened by rom. Denies numbness/tingling of left foot. .Patient presents with: left ankle pain: Rolled ankle 1 month ago PAST MEDICAL HISTORY age 19: Chlamydia No date: TAMIKA (generalized anxiety disorder) No date: Psoriasis Comment: Dr. Mckeon at [facility] PAST SURGICAL HISTORY No date: PAST SURGICAL HISTORY OF Comment: wisdom teeth 2018: [facility] ([facility]) ALLERGIES Lexapro [Escitalopram] MEDICATIONS FLUoxetine (PROZAC) 20 mg capsule Take 1 capsule by mouth once daily. (Patient not taking: Reported on 10/03/2023) FAMILY HISTORY Problem Relation Age of Onset No Known Problems Paternal Grandmother Cancer Paternal Grandfather lung No Known Problems Maternal Grandmother No Known Problems Mother No Known Problems Father No Known Problems Brother None Other Social History Tobacco Use Smoking status: Former Current packs/day: 0.00 Average packs/day: 0.5 packs/day for 20.0 years (10.0 ttl pk-yrs) Types: Cigarettes Start date: 05/01/1998 Quit date: 05/01/2018 Years since quittin.8 Smokeless tobacco: Never Vaping Use Vaping status: current everyday user Substances: Nicotine, Flavoring Devices: Pre-filled or refillable cartridge Substance Use Topics Alcohol use: Yes Comment: occasional Drug use: No ROS Objective Blood pressure 128/82, pulse 75, temperature 36.6 C (97.8 F), temperature source Tympanic, resp. rate 18, weight 67.8 kg (149 lb 7.6 oz), last menstrual period 10/01/2023, SpO2 98%. Physical Exam Constitutional: General: She is not in acute distress. Appearance: She is not toxic-appearing or diaphoretic. HENT: Head: Normocephalic and atraumatic. Pulmonary: Effort: Pulmonary effort is normal. No accessory muscle usage or respiratory distress. Musculoskeletal: Feet: Neurological: Mental Status: She is alert and oriented to person, place, and time. ASSESSMENT/PLAN: 1. Injury of left ankle, initial encounter - ICD9: 959.7, ICD10: S99.912A (primary diagnosis) Will refer to orthopedics for eval - XR ANKLE GENERAL 3V AP/LAT/OBL LEFT IMPRESSION: Sessile broad-based exostosis arising from the lateral aspect of the distal tibia with secondary remodeling and mild lateral bowing deformity of the adjacent distal fibular shaft. No radiographic evidence of acute osseous injury Dictated by : RACHEL DALY MD - CONSULT TO ORTHOPAEDICS 2. Abnormal x-ray - ICD9: 793.99, ICD10: R93.89 - CONSULT TO ORTHOPAEDICS Viral Parish APRN.[employer] SERVICES MANAGER documented in this encounter [facility] 01-28-2024 Telephone encounter Note Pt's request was submitted to PCP via telephone encounter. Pt notified. Jess Coley LPN [facility] 01-28-2024 Miscellaneous Notes Pt's request was submitted to PCP via telephone encounter. Pt notified. Jess Coley LPN documented in this encounter [facility] 10-03-2023 Instructions Mary Rivas LPN - 10/03/2023 4:11 PM EDT HUMAN PAPILLOMAVIRUS (HPV) What is HPV ? HPV (human papillomavirus) is a common virus that affects both females and males.Most types of HPV are harmless, do not cause any symptoms, and go away on their own. About 30 types of HPV are known as genital HPV since they affect the genital area.Some types are high risk and can cause cervical cancer or abnormal cells in the lining of the cervix that sometimes turn into cancer.Others are low risk and can cause genital warts and changes in the cervix that are benign (abnormal but noncancerous). WHO GETS GENITAL HPV ? Anyone who has any kind of sexual activity involving genital contact could get genital HPV. Because many people who have HPV may not show any signs or symptoms, they can transmit the virus without even knowing it. HPV is more common than you might think.In 2005, approximately 20 million Americans had genital HPV.More than 6 million new cases of genital HPV are diagnosed in the [place] every year. HOW DO I KNOW IF I HAVE HPV ? Because HPV may not show any signs or symptoms, you probably won't know you have it.Most women are diagnosed with HPV as a result of an abnormal Pap test.A Pap test (also known as a Pap smear) is part of a gynecological exam and helps detect abnormal cells in the lining of the cervix before they have the chance to become precancers or cervical cancer. Many cervical precancers (changes that could lead to cancer) are related to HPV and can be treated successfully if detected early.That's why early detection is so important. WHAT HAPPENS IF I GET HPV ? In most people, the body's defenses are enough to clear HPV. If not cleared by the body, some HPV types cause genital warts.Other types cause abnormal changes in the cells lining the cervix that can lead to precancers and even turn into cervical cancer later in life. CERVICAL CANCER WHAT IS CERVICAL CANCER ? Cervical Cancer is cancer of the cervix.The cervix is the part of the uterus that connects the upper part of the uterus (the womb) and the vagina. Cervical cancer is a serious condition that can be life threatening.When a woman becomes infected with certain high-risk types of HPV and does not clear the infection, abnormal cells can develop in the lining of the cervix. If not discovered early and treated, these abnormal cells can become cervical precancers and then possibly cancer.Most often this can take a number of years, although in rare cases it can happen within a year. WHO GETS CERVICAL CANCER ? About half of all females diagnosed with cervical cancer are between 35 and 55 years of age.What many of these women may not realize is that they were most likely exposed to one of the high-risk types of HPV during their teens and 20's. The [place] [employer] estimated that in 2005 there were 10,370 new cases of cervical cancer diagnosed in the [place], and 3,710 women from the disease. HOW DO I KNOW IF I HAVE CERVICAL CANCER ? The usual way to detect cervical cancer is through a Pap test.If the results of a Pap test indicate that you have abnormal cervical cells, it's important to follow your healthcare professional's recommendations for more testing, such as repeat Pap testing, HPV DNA testing, colposcopy (examination of the cervix through a magnifying device), and possible biopsy (obtaining a tissue sample for analysis in the lab). HOW IS CERVICAL CANCER TREATED ? The three main methods are surgery (an operation to remove the cancer), radiation therapy (using high energy beams to destroy cancer cells), and chemotherapy (using medications to disrupt the growth of cancer cells). Sometimes treatment includes two or more of these methods. Before choosing a treatment, a healthcare professional will consider the size of the cancer, whether it has spread, the woman's age and overall health, and patient preferences.The treatment that is right for one person may not be right for someone else. ABNORMAL CERVICAL CELLS WHAT ARE ABNORMAL CERVICAL CELLS ? Abnormal cervical cells (also called cervical dysplasia) are cells in the lining of the cervix that have changed in appearance. The more severe the cervical abnormality, the more likely it is that cervical cancer could develop in the future.Most often this can take a number of years, although in rare cases it can happen within a year. WHAT CAUSES ABNORMAL CERVICAL CELLS ? Abnormal cervical cells may have a number of different causes, such as an infection or inflammation, but are commonly caused by certain types of HPV (human papillomavirus). HOW DO I KNOW IF I HABE ABNORMAL CERVICAL CELLS ? The usual way to detect abnormal cervical cells is through a Pap test.You may have additional testing, such as repeat Pap testing, HPV DNA testing, colposcopy, and possible biopsy. An abnormal biopsy result may be reported as MARTHA (cervical intraepithelial neoplasia). The term MARTHA, along with a number (1 to 3), describes how much of the thickness of the lining of the cervix contains abnormal cells.A diagnosis of MARTHA 3 means there are severely abnormal cervical cells through the entire thickness of the lining of the cervix. HOW ARE ABNORMAL CERVICAL CELLS TREATED ? Most abnormal cells in the lining of the cervix will eventually go away on their own.If the abnormalities are mild, the healthcare professional may choose to closely monitor them. If the abnormalities are more severe, removing these cells can almost always prevent cervical cancer from developing in the future. Methods commonly used to treat abnormal cervical cells include freezing, removing them using an electrical instrument, and conventional surgery. The treatment may have to be repeated if the abnormal cells reappear. GENITAL WARTS WHAT ARE GENITAL WARTS ? Genital warts are flesh-colored growths that are most often caused by certain types of HPV.Genital warts most often appear on the external genitals or near the anus of females and males.Less commonly, genital warts can appear inside the vagina and on the cervix. WHO GETS GENITAL WARTS ? Anyone who has any kind of sexual activity involving genital contact could get genital HPV, and certain types of HPV can develop into genital warts.Because many people who have HPV may not show any signs or symptoms, they can transmit the virus without even knowing it.After sexual contact with an infected person, genital warts may appear within weeks, months, years, or not at all. Genital warts are very common. It is estimated that in 2002, there were over 260,000 new cases of genital warts in the [place] alone. HOW DO I KNOW IF I HAVE GENITAL WARTS ? A healthcare professional can usually recognize genital warts just by seeing them. Genital warts often do not cause symptoms. In some cases; however, they may cause burning, itching, or pain. HOW ARE GENITAL WARTS TREATED ? Genital warts sometimes disappear on their own without treatment. However, there is no way to tell if they will disappear or grow larger. A healthcare professional may choose to apply a special cream or solution to the warts. Alternatively, some genital warts can be removed by freezing, burning, or using a laser treatment. If these treatments don't work, they may be removed by surgery. There is a chance that genital warts can reappear after treatment, since the HPV that caused them may still be present. documented in this encounter [facility] 10-03-2023 Note HNO ID: [id number] Author: MARY RIVAS LPN Service: ? Author Type: LICENSED NURSE Type: Progress Notes Filed: 10/03/2023 16:12 Note Text: Schedule for Gardasil injections: Routine schedule is 0,2, and 6 months Minimum intervals: 4 weeks between doses 1 and 2 12 weeks between doses 2 and 3 4 day 'radha period' can be applied Gardasil Questions: Please note: if patient is overdue for a yearly exam, they will need to have yearly scheduled within the next 6 months at the time Gardasil is given. Was your last yearly exam more than 18 months ago? No. Are you ? No. Do you have an elevated temp? No. See immun/inj tab for lot #, expiration date. Mary Rivas LPN [facility] 10-03-2023 History of Presen t illness Narrative Schedule for Gardasil injections: Routine schedule is 0,2, and 6 months Minimum intervals: 4 weeks between doses 1 and 2 12 weeks between doses 2 and 3 4 day 'radha period' can be applied Gardasil Questions: Please note: if patient is overdue for a yearly exam, they will need to have yearly scheduled within the next 6 months at the time Gardasil is given. Was your last yearly exam more than 18 months ago? No. Are you ? No. Do you have an elevated temp? No. See immun/inj tab for lot #, expiration date. Mary Rivas LPN documented in this encounter [facility] 06-03-2023 Note HNO ID: [id number] Author: Lisandra Ann RN Service: ? Author Type: Registered Nurse Type: Progress Notes Filed: 06/03/2023 4:14 PM Note Text: Patient identified by name and date of . Tosin Pavon is here for her HPV Gardasil vaccination, injection # two of the series. Patient ?No Gardasil injection was given without incident. See immunizations for details of immunizations administered today. VIS sheet provided: Yes Patient advised to follow up in 4 months from the 2nd injection Provider Beatriz Rodriguez MD was present in office at time of injection. Lisandra Ann RN [facility] 05-26-2023 Miscellaneous Notes The following approved medication requests have been transmitted electronically. Requested Prescriptions Pending Prescriptions Disp Refills FLUoxetine (PROZAC) 20 mg capsule 30 capsule 2 Sig: Take 1 capsule by mouth once daily. Alo Fox APRN.[place] Patient phones requesting refills as follows: Requested Prescriptions Pending Prescriptions Disp Refills FLUoxetine (PROZAC) 20 mg capsule 30 capsule 2 Sig: Take 1 capsule by mouth once daily. [facility] 04/24/2023 No upcoming appointment scheduled Please review and advise. Eula Metzger LPN documented in this encounter [facility] 05-02-2023 Note HNO ID: [id number] Author: Lisandra Hathaway LPCC Service: ? Author Type: Therapist Type: Progress Notes Filed: 05/02/2023 8:42 AM Note Text: Behavioral Health Social Work Progress Note Patient identified for [facility] from: PCP Reason for referral: [facility] Behavioral Health Resources: Psychology - talk therapy [facility] encounter type: [employer] Message Attempts to Outreach: 3 attempts Referral made: Psychology - External, Psychology - Internal Psychology-Internal referral type: Therapy Psychology-External referral type: Therapy Reason for external referral: Wait times at [facility] too long, Patient choice Final Disposition: Resources given Patient Discharged?: Yes Patient reported that caregiver was able to meet their needs today?: N/A Phone call placed today that went to [employer]. Left my contact information and brief nature of call. Initial outreach also completed via [employer] sending list of in network providers with insurance. AMAN Cline-S May 02, 2023 [facility] 05-02-2023 History of Presen t illness Narrative Behavioral Health Social Work Progress Note Patient identified for [facility] from: PCP Reason for referral: [facility] Behavioral Health Resources: Psychology - talk therapy [facility] encounter type: MyChart Message Attempts to Outreach: 3 attempts Referral made: Psychology - External, Psychology - Internal Psychology-Internal referral type: Therapy Psychology-External referral type: Therapy Reason for external referral: Wait times at [facility] too long, Patient choice Final Disposition: Resources given Patient Discharged?: Yes Patient reported that caregiver was able to meet their needs today?: N/A Phone call placed today that went to voicemail. Left my contact information and brief nature of call. Initial outreach also completed via [employer] sending list of in network providers with insurance. LEON Cline May 02, 2023 documented in this encounter [facility] 04-25-2023 Miscellaneous Notes Behavioral Health Social Work Progress Note Patient identified for [facility] from: PCP Reason for referral: [facility] Behavioral Health Resources: Psychology - talk therapy [facility] encounter type: Telephone Encounter Attempts to Outreach: 1 attempt Patient Discharged?: No Patient reported that caregiver was able to meet their needs today?: N/A Phone call placed today that went to voicemail. Left my contact information and brief nature of call. Initial outreach also completed via [employer] sending list of in network providers with insurance. LEON Cline April 25, 2023 documented in this encounter [facility] 04-24-2023 Note HNO ID: [id number] Author: Robyn Bowman MD Service: ? Author Type: Physician Type: Progress Notes Filed: 04/28/2023 9:03 PM Note Text: Chief Complaint Patient presents with: Medication Follow-up HPI Tosin Pavon is a 33 year old female who presents here today for medication follow up. Pt is here to discuss changing from Lexapro to Wellbutrin to treat anxiety and depression. She states that the Lexapro is making it hard for her to orgasm. She denies much decreased libido but harder to get full pleasure. She has been off the Lexapro for 2 days. Has had withdrawal effects of insomnia and shaky sound in her brain. Has been on Zoloft in the past. She was just seen in [facility] for Rash today, started on Keflex and Bactroban. 04/24/2023 1617 Last Filed Value TAMIKA-7 - over the last 2 weeks... Feeling nervous, anxious, or on edge Several days Several days Not being able to stop or control worrying Several days Several days Worrying too much about different things Several days Several days Trouble relaxing Not at all Not at all Being so restless that it is hard to sit still Not at all Not at all Becoming easily annoyed or irritable Several days Several days Feeling afraid, as if something awful might happen Not at all Not at all How difficult to do work, care for home, get along with people Somewhat difficult Somewhat difficult TAMIKA-2 Total Score 2 2 TAMIKA-7 Total Score 4 4 TAMIKA-7 Score 4 4 04/24/2023 1618 Last Filed Value PHQ-9 Little interest or pleasure in doing things Several days Several days Feeling down, depressed, or hopeless Several days Several days Trouble falling or staying asleep, or sleeping too much Several days Several days Feeling tired or having little energy Several days Several days Poor appetite or overeating Not at all Not at all Feeling bad about yourself - or that you are a failure or have let yourself or your family down Several days Several days Trouble concentrating on things, such as reading the newspaper or watching television Not at all Not at all Moving or speaking so slowly that other people could have noticed. Or the opposite - being so fidgety or restless that you have been moving around a lot more than usual Not at all Not at all Thoughts that you would be better off , or of hurting yourself in some way Not at all Not at all If you checked off any problems, how difficult have these problems made it for you to do your work, take care of things at home, or get along with other people? Somewhat difficult Somewhat difficult PHQ-9 score 5 5 PHQ-9 Score 5 5 PHQ-2 score 2 2 PHQ-2 Score 2 2 Past medical history, appointments, medications, allergies reviewed. Previous Medical History PAST MEDICAL HISTORY Diagnosis Date Chlamydia age [address] Mckeon at [facility] Previous Surgical History PAST SURGICAL HISTORY Procedure Laterality Date PAST SURGICAL HISTORY OF wisdom teeth [facility] ([facility]) 2018 Family History FAMILY HISTORY Problem Relation Age of Onset No Known Problems Paternal Grandmother Cancer Paternal Grandfather lung No Known Problems Maternal Grandmother No Known Problems Mother No Known Problems Father No Known Problems Brother None Other Patient Allergies ALLERGIES No Known Allergies Current Medications Current Outpatient Medications on File Prior to Visit Medication Sig cephALEXin (KEFLEX) 500 mg capsule Take 1 capsule by mouth three times a day for 7 days. mupirocin (BACTROBAN) 2 % ointment Apply to affected area three times a day for 10 days. escitalopram oxalate (LEXAPRO) 10 mg tablet Take 1 tablet by mouth daily at bedtime. No current facility-administered medications on file prior to visit. Social History Social History Tobacco Use Smoking status: Former Packs/day: 0.50 Years: 20.00 Additional pack years: 0.00 Total pack years: 10.00 Types: Cigarettes Quit date: 05/01/2018 Years since quittin.9 Smokeless tobacco: Never Vaping Use Vaping Use: current everyday user Substances: Nicotine, Flavoring Devices: Pre-filled or refillable cartridge Substance Use Topics Alcohol use: Yes Comment: occasional Drug use: No Review of Symptoms REVIEW OF SYSTEMS See HPI EXAM: BP 122/70 Pulse 70 Resp 16 Wt 62.6 kg (138 lb) LMP 04/24/2023 (Exact Date) BMI 23.50 kg/m? General Appearance: Well appearing, alert, in no acute distress, well-hydrated, well nourished.. PSYCH: Posture and motor behavior: sitting erect in the chair Dress, grooming, personal hygiene: normal dress and grooming Facial expression: smiling Speech: normal speech Mood: cheerful Coherency and relevance of thought: normal thought processes Memory: normal memory Health Maintenance List Hepatitis B Vaccine(1 of 3 - 3-dose series) Never done Covid-19 Vaccine(1) Never done Depression Assessment due on 06/16/2022 HPV Va (more content not included)... [facility] 04-24-2023 History of Presen t illness Narrative Chief Complaint Patient presents with: Medication Follow-up HPI Tosin Pavon is a 33 year old female who presents here today for medication follow up. Pt is here to discuss changing from Lexapro to Wellbutrin to treat anxiety and depression. She states that the Lexapro is making it hard for her to orgasm. She denies much decreased libido but harder to get full pleasure. She has been off the Lexapro for 2 days. Has had withdrawal effects of insomnia and shaky sound in her brain. Has been on Zoloft in the past. She was just seen in [facility] for Rash today, started on Keflex and Bactroban. 04/24/2023 1617 Last Filed Value TAMIKA-7 - over the last 2 weeks... Feeling nervous, anxious, or on edge Several days Several days Not being able to stop or control worrying Several days Several days Worrying too much about different things Several days Several days Trouble relaxing Not at all Not at all Being so restless that it is hard to sit still Not at all Not at all Becoming easily annoyed or irritable Several days Several days Feeling afraid, as if something awful might happen Not at all Not at all How difficult to do work, care for home, get along with people Somewhat difficult Somewhat difficult TAMIKA-2 Total Score 2 2 TAMIKA-7 Total Score 4 4 TAMIKA-7 Score 4 4 04/24/2023 1618 Last Filed Value PHQ-9 Little interest or pleasure in doing things Several days Several days Feeling down, depressed, or hopeless Several days Several days Trouble falling or staying asleep, or sleeping too much Several days Several days Feeling tired or having little energy Several days Several days Poor appetite or overeating Not at all Not at all Feeling bad about yourself - or that you are a failure or have let yourself or your family down Several days Several days Trouble concentrating on things, such as reading the newspaper or watching television Not at all Not at all Moving or speaking so slowly that other people could have noticed. Or the opposite - being so fidgety or restless that you have been moving around a lot more than usual Not at all Not at all Thoughts that you would be better off , or of hurting yourself in some way Not at all Not at all If you checked off any problems, how difficult have these problems made it for you to do your work, take care of things at home, or get along with other people? Somewhat difficult Somewhat difficult PHQ-9 score 5 5 PHQ-9 Score 5 5 PHQ-2 score 2 2 PHQ-2 Score 2 2 Past medical history, appointments, medications, allergies reviewed. Previous Medical History PAST MEDICAL HISTORY Diagnosis Date Chlamydia age [address] Mckeon at [facility] Previous Surgical History PAST SURGICAL HISTORY Procedure Laterality Date PAST SURGICAL HISTORY OF wisdom teeth [facility] ([facility]) 2018 Family History FAMILY HISTORY Problem Relation Age of Onset No Known Problems Paternal Grandmother Cancer Paternal Grandfather lung No Known Problems Maternal Grandmother No Known Problems Mother No Known Problems Father No Known Problems Brother None Other Patient Allergies ALLERGIES No Known Allergies Current Medications Current Outpatient Medications on File Prior to Visit Medication Sig cephALEXin (KEFLEX) 500 mg capsule Take 1 capsule by mouth three times a day for 7 days. mupirocin (BACTROBAN) 2 % ointment Apply to affected area three times a day for 10 days. escitalopram oxalate (LEXAPRO) 10 mg tablet Take 1 tablet by mouth daily at bedtime. No current facility-administered medications on file prior to visit. Social History Social History Tobacco Use Smoking status: Former Packs/day: 0.50 Years: 20.00 Additional pack years: 0.00 Total pack years: 10.00 Types: Cigarettes Quit date: 05/01/2018 Years since quittin.9 Smokeless tobacco: Never Vaping Use Vaping Use: current everyday user Substances: Nicotine, Flavoring Devices: Pre-filled or refillable cartridge Substance Use Topics Alcohol use: Yes Comment: occasional Drug use: No Review of Symptoms REVIEW OF SYSTEMS See HPI EXAM: BP 122/70 Pulse 70 Resp 16 Wt 62.6 kg (138 lb) LMP 04/24/2023 (Exact Date) BMI 23.50 kg/m General Appearance: Well appearing, alert, in no acute distress, well-hydrated, well nourished.. PSYCH: Posture and motor behavior: sitting erect in the chair Dress, grooming, personal hygiene: normal dress and grooming Facial expression: smiling Speech: normal speech Mood: cheerful Coherency and relevance of thought: normal thought processes Memory: normal memory Health Maintenance List Hepatitis B Vaccine(1 of 3 - 3-dose series) Never done Covid-19 Vaccine(1) Never done Depression Assessment due on 06/16/2022 HPV Vaccine(2 - 3-dose SCDM series) due on 04/30/2023 Influenza Vaccine(1) due on 12/14/2023 Pap Testing due on 04/02/2028 HPV Testing due on 04/02/2028 DTaP,Tdap,Td Vaccine(2 - Td or Tdap) due on 04/02/2029 Hepatitis C Screening Completed HIV Screening Completed ASSESSMENT/PLAN: 1. Anxiety with depression - ICD9: 300.4, ICD10: F41.8 Discussed wellbutrin has possibility to worsen anxiety symptoms and would recommend alternative SSRI Prozac which she is willing to try. Rx sent as requested. F/u with counseling. Call if not improving in 4-6 weeks or sooner with side effects. - CONSULT TO [facility] Robyn Bowman MD documented in this encounter [facility] 04-24-2023 Note HNO ID: [id number] Author: Viral Parish APRN.HOSPITALITY SERVICES MANAGER Service: ? Author Type: Nurse Practitioner Type: Progress Notes Filed: 04/24/2023 2:54 PM Note Text: Subjective HPI HPI Tosin Pavon is a 33 year old female who presents today for CC of itchy painful rash. This started 1 month ago, started to go away, patient scratched it, then it worsened. Has tried otc medication for relief. Symptoms are worsened by nothing. 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 .Patient presents with: Rash: 1 month painful and itchy. PAST MEDICAL HISTORY Diagnosis Date Chlamydia age [address] Mckeon at [facility] PAST SURGICAL HISTORY Procedure Laterality Date PAST SURGICAL HISTORY OF wisdom teeth [facility] ([facility]) 2018 ALLERGIES Patient has no known allergies. MEDICATIONS escitalopram oxalate (LEXAPRO) 10 mg tablet Take 1 tablet by mouth daily at bedtime. FAMILY HISTORY Problem Relation Age of Onset No Known Problems Paternal Grandmother Cancer Paternal Grandfather lung No Known Problems Maternal Grandmother No Known Problems Mother No Known Problems Father No Known Problems Brother None Other Social History Tobacco Use Smoking status: Former Packs/day: 0.50 Years: 20.00 Additional pack years: 0.00 Total pack years: 10.00 Types: Cigarettes Quit date: 05/01/2018 Years since quittin.9 Smokeless tobacco: Never Vaping Use Vaping Use: current everyday user Substances: Nicotine, Flavoring Devices: Pre-filled or refillable cartridge Substance Use Topics Alcohol use: Yes Comment: occasional Drug use: No Review of Systems Constitutional: Negative for fever. Objective Blood pressure 122/72, pulse 67, temperature 36.8 ?C (98.2 ?F), resp. rate 16, weight 62.7 kg (138 lb 3.2 oz), last menstrual period 03/22/2023, SpO2 98 %. Physical Exam Constitutional: General: She is not in acute distress. Appearance: She is not toxic-appearing or diaphoretic. HENT: Head: Normocephalic and atraumatic. Pulmonary: Effort: Pulmonary effort is normal. No accessory muscle usage or respiratory distress. Skin: Neurological: Mental Status: She is alert and oriented to person, place, and time. ASSESSMENT/PLAN: 1. Rash - ICD9: 782.1, ICD10: R21 Unclear etiology, but currently looks like secondary impetigo -use medication as prescribed -follow up if symptoms persist, worsen, change - CEPHALEXIN 500 MG CAPSULE - MUPIROCIN 2 % TOPICAL OINTMENT Viral Parish APRN.[facility] 04-24-2023 History of Presen t illness Narrative Images from the original note were not included. Subjective HPI HPI Tosin Pavon is a 33 year old female who presents today for CC of itchy painful rash. This started 1 month ago, started to go away, patient scratched it, then it worsened. Has tried otc medication for relief. Symptoms are worsened by nothing. 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 .Patient presents with: Rash: 1 month painful and itchy. PAST MEDICAL HISTORY Diagnosis Date Chlamydia age [address] Mckeon at [facility] PAST SURGICAL HISTORY Procedure Laterality Date PAST SURGICAL HISTORY OF wisdom teeth [facility] ([facility]) 2018 ALLERGIES Patient has no known allergies. MEDICATIONS escitalopram oxalate (LEXAPRO) 10 mg tablet Take 1 tablet by mouth daily at bedtime. FAMILY HISTORY Problem Relation Age of Onset No Known Problems Paternal Grandmother Cancer Paternal Grandfather lung No Known Problems Maternal Grandmother No Known Problems Mother No Known Problems Father No Known Problems Brother None Other Social History Tobacco Use Smoking status: Former Packs/day: 0.50 Years: 20.00 Additional pack years: 0.00 Total pack years: 10.00 Types: Cigarettes Quit date: 05/01/2018 Years since quittin.9 Smokeless tobacco: Never Vaping Use Vaping Use: current everyday user Substances: Nicotine, Flavoring Devices: Pre-filled or refillable cartridge Substance Use Topics Alcohol use: Yes Comment: occasional Drug use: No Review of Systems Constitutional: Negative for fever. Objective Blood pressure 122/72, pulse 67, temperature 36.8 C (98.2 F), resp. rate 16, weight 62.7 kg (138 lb 3.2 oz), last menstrual period 03/22/2023, SpO2 98 %. Physical Exam Constitutional: General: She is not in acute distress. Appearance: She is not toxic-appearing or diaphoretic. HENT: Head: Normocephalic and atraumatic. Pulmonary: Effort: Pulmonary effort is normal. No accessory muscle usage or respiratory distress. Skin: Neurological: Mental Status: She is alert and oriented to person, place, and time. ASSESSMENT/PLAN: 1. Rash - ICD9: 782.1, ICD10: R21 Unclear etiology, but currently looks like secondary impetigo -use medication as prescribed -follow up if symptoms persist, worsen, change - CEPHALEXIN 500 MG CAPSULE - MUPIROCIN 2 % TOPICAL OINTMENT Viral Parish APRN.HOSPITALITY SERVICES MANAGER documented in this encounter [facility] 04-02-2023 Miscellaneous Notes Pt had appt with Priti Schaffer today 04/02/23. Pt is aware of recent results and medication that needs picked and taken. Ashlee Maher MA Still unable to reach patient.Akua Snell LPN Still unable to reach patient.Akua Snell LPN Unable to reach patient. Mailbox full. Please try again later. Isa Baptiste LPN Call let patient know she tested positive for bacterial vaginosis. This is not an STD, this is bacterial overgrowth found in the vaginal area. We will treat with Flagyl. Recommend not drinking any alcohol while on this medication. Follow-up with women's health if not improving. documented in this encounter [facility] 04-02-2023 Instructions Priti Schaffer MD - 04/02/2023 2:06 PM EDT Gardasil Gardasil is a vaccine to protect against Human Papillomavirus (HPV) types 6, 11, 16, 18, 31,33,45, 52, 58. These viruses cause cancer and precancerous lesions on the cervix (opening between vagina and uterus), in the vagina and on the vulva (skin around the outside of the vagina) as well as genital warts. The vaccine cannot cause these diseases and cannot treat them if already present. Gardasil works best if given before contact with HPV. Most people are exposed to HPV soon after starting sexual activity. The vaccine is recommended between the ages of 9 and 45. Gardasil does not protect against all strains of HPV. Women who receive the vaccine still need to have regular pelvic exams and cervical cancer screening with the pap smear. You should ask your doctor if Gardasil is right for you if you have a weakened immune system, a bleeding disorder, plan to become soon or have a current illness causing fever. Gardasil is not recommended for women. You should be sure your doctor is aware of any allergies you have and all medications and herbal supplements you take. Gardasil is given to those ages 9-14 in 2 doses at 0 and 8 months. In ages 15-45, three injections are given at 0,2,6 months. Common side effects include pain, redness, itching and swelling at the injection site, nausea, fever, dizziness and fainting. Rare but potentially serious reactions have been reported. These include allergic reaction, swollen glands, joint and muscle pain, weakness and Guillain-[place] syndrome. documented in this encounter [facility] 04-02-2023 Note HNO ID: [id number] Author: Kita Taylor RN Service: ? Author Type: ? Type: Progress Notes Filed: 04/02/2023 4:36 PM Note Text: Tosin is a 33 year old who presents for an annual gynecologic exam without complaints. Recently dx w/ BV but hasn't picked up med yet Menses: cycles every 28 days and 2-5 days of flow. stops and starts Contraception: condoms HPV vaccine: No Last Pap: 04/20/2021 nASCUS + HRHPV HPV: 04/24/2021 negative History of abnormal pap: No Last mammogram: never Sexually active: Yes OB History T1 L1 SAB0 IAB0 Ectopic0 Multiple0 Live Births1 Complex Care Nurse Practitioner History LMP: 03/22/2023 (Exact Date), Having periods Age at Menarche: Age at First : Age at Menopause: Complex Care Nurse Practitioner History Comments: Sexual Activity: Yes; Male Contraception: No contraception data on record PAST MEDICAL HISTORY Diagnosis Date Chlamydia age [address] Mckeon at [facility] PAST SURGICAL HISTORY Procedure Laterality Date PAST SURGICAL HISTORY OF wisdom teeth [facility] ([facility]) 2018 FAMILY HISTORY Problem Relation Age of Onset No Known Problems Paternal Grandmother Cancer Paternal Grandfather lung No Known Problems Maternal Grandmother No Known Problems Mother No Known Problems Father No Known Problems Brother None Other SOCIAL HISTORY Social History Tobacco Use Smoking status: Former Packs/day: 0.50 Years: 20.00 Additional pack years: 0.00 Total pack years: 10.00 Types: Cigarettes Quit date: 05/01/2018 Years since quittin.9 Smokeless tobacco: Never Vaping Use Vaping Use: current everyday user Substances: Nicotine, Flavoring Devices: Pre-filled or refillable cartridge Substance Use Topics Alcohol use: Yes Comment: occasional Drug use: No REVIEW OF SYSTEMS Abdomen: No abdominal pain, nausea, vomiting, diarrhea, or constipation. No bloating, early satiety, indigestion, or increased flatulence. Bladder: No dysuria, gross hematuria, urinary frequency, urinary urgency, or incontinence. Breast: No breast lumps, nipple d/c, overlying skin changes, redness or skin retraction. Allergies and current medication updated:Yes EXAM: BP 126/78 Ht 5' 4.25 (1.63m) Wt 139 lb (63.1kg) LMP 03/22/2023 BMI 23.67 kg/(m2). GENERAL: pleasant, female in no apparent distress HEENT: Normocephalic, atraumatic, mucus membranes moist, and no lesions NECK: Supple, full range of motion, no adenopathy, and thyroid normal DERMATOLOGY: Normal, without lesions, non-icteric, and non-hirsute BREAST: soft, non-tender, symmetric, no dominant mass, normal nipple-areolar complex, no lymphadenopathy, and no nipple discharge CHEST: Normal inspiratory effort ABDOMEN: soft, non-tender, and no masses PELVIC: external genitalia normal, normal Bartholin's glands, urethra, Atkinson's glands, no vulvar lesions, no cervical lesions, good vaginal support, physiologic discharge present, normal appearing perineal body and perianal region BIMANUAL: uterus normal size, shape and consistency, no adnexal masses, and non-tender RECTOVAGINAL: deferred. NEURO: alert and oriented x3,exam grossly non-focal EXTREMITIES: normal ASSESSMENT/PLAN: 1) Health maintenance: Pap done with HPV. HPV vaccine: accepts 2) Contraception: condoms. Contraceptive options reviewed and information provided. 3) STD screening: Declined STD check. 4) Follow up one year or sooner as needed Priti Schaffer MD Patient identified by name and date of . Tosin Pavon is here for her HPV 9 vaccination, injection # one of the series. Patient ?No Gardasil injection was given without incident. See immunizations for details of immunizations administered today. VIS sheet provided: Yes Patient advised to follow up in 2 months from the 1st injection Provider Dr Schaffer was present in office at time of injection. Priti Schaffer MD [facility] 04-02-2023 History of Presen t illness Narrative Tosin is a 33 year old who presents for an annual gynecologic exam without complaints. Recently dx w/ BV but hasn't picked up med yet Menses: cycles every 28 days and 2-5 days of flow. stops and starts Contraception: condoms HPV vaccine: No Last Pap: 04/20/2021 nASCUS + HRHPV HPV: 04/24/2021 negative History of abnormal pap: No Last mammogram: never Sexually active: Yes OB History T1 L1 SAB0 IAB0 Ectopic0 Multiple0 Live Births1 Complex Care Nurse Practitioner History LMP: 03/22/2023 (Exact Date), Having periods Age at Menarche: Age at First : Age at Menopause: Complex Care Nurse Practitioner History Comments: Sexual Activity: Yes; Male Contraception: No contraception data on record PAST MEDICAL HISTORY Diagnosis Date Chlamydia age [address] Mckeon at [facility] PAST SURGICAL HISTORY Procedure Laterality Date PAST SURGICAL HISTORY OF wisdom teeth [facility] ([facility]) 2018 FAMILY HISTORY Problem Relation Age of Onset No Known Problems Paternal Grandmother Cancer Paternal Grandfather lung No Known Problems Maternal Grandmother No Known Problems Mother No Known Problems Father No Known Problems Brother None Other SOCIAL HISTORY Social History Tobacco Use Smoking status: Former Packs/day: 0.50 Years: 20.00 Additional pack years: 0.00 Total pack years: 10.00 Types: Cigarettes Quit date: 05/01/2018 Years since quittin.9 Smokeless tobacco: Never Vaping Use Vaping Use: current everyday user Substances: Nicotine, Flavoring Devices: Pre-filled or refillable cartridge Substance Use Topics Alcohol use: Yes Comment: occasional Drug use: No REVIEW OF SYSTEMS Abdomen: No abdominal pain, nausea, vomiting, diarrhea, or constipation. No bloating, early satiety, indigestion, or increased flatulence. Bladder: No dysuria, gross hematuria, urinary frequency, urinary urgency, or incontinence. Breast: No breast lumps, nipple d/c, overlying skin changes, redness or skin retraction. Allergies and current medication updated:Yes EXAM: BP 126/78 Ht 5' 4.25 (1.63m) Wt 139 lb (63.1kg) LMP 03/22/2023 BMI 23.67 kg/(m^2). GENERAL: pleasant, female in no apparent distress HEENT: Normocephalic, atraumatic, mucus membranes moist, and no lesions NECK: Supple, full range of motion, no adenopathy, and thyroid normal DERMATOLOGY: Normal, without lesions, non-icteric, and non-hirsute BREAST: soft, non-tender, symmetric, no dominant mass, normal nipple-areolar complex, no lymphadenopathy, and no nipple discharge CHEST: Normal inspiratory effort ABDOMEN: soft, non-tender, and no masses PELVIC: external genitalia normal, normal Bartholin's glands, urethra, Atkinson's glands, no vulvar lesions, no cervical lesions, good vaginal support, physiologic discharge present, normal appearing perineal body and perianal region BIMANUAL: uterus normal size, shape and consistency, no adnexal masses, and non-tender RECTOVAGINAL: deferred. NEURO: alert and oriented x3,exam grossly non-focal EXTREMITIES: normal ASSESSMENT/PLAN: 1) Health maintenance: Pap done with HPV. HPV vaccine: accepts 2) Contraception: condoms. Contraceptive options reviewed and information provided. 3) STD screening: Declined STD check. 4) Follow up one year or sooner as needed Priti Schaffer MD Patient identified by name and date of . Tosin Pavon is here for her HPV 9 vaccination, injection # one of the series. Patient ?No Gardasil injection was given without incident. See immunizations for details of immunizations administered today. VIS sheet provided: Yes Patient advised to follow up in 2 months from the 1st injection Provider Dr Schaffer was present in office at time of injection. Priti Schaffer MD documented in this encounter [facility] 03-31-2023 Note HNO ID: [id number] Author: Clau Duarte APRN.HOSPITALITY SERVICES MANAGER Service: ? Author Type: Nurse Practitioner Type: Progress Notes Filed: 03/31/2023 4:35 PM Note Text: This note was created using Yillioriter. Subjective Tosin Pavon is a 33 year old female. 33 year old female with PMH depression and anxiety presents for complaints of female Acute onset one week ago +itching +odor Denies sx Denies abdominal pain. Denies flank pain Denies fever or chills. Denies vaginal bleeding. Denies vaginal discharge. Endorses she had a new partner LMP-03/22/23 Denies homeopathic or OTC medications PACKAGER HAND. The history is provided by the patient. No foreign language teacher was used. Vaginal Problem This is a new problem. The current episode started in the past 7 days. The problem occurs constantly. The problem has been unchanged. Pertinent negatives include no abdominal pain, anorexia, arthralgias, change in bowel habit, chest pain, chills, congestion, coughing, diaphoresis, fatigue, fever, headaches, joint swelling, myalgias, nausea, neck pain, numbness, rash, sore throat, swollen glands, urinary symptoms, vertigo, visual change, vomiting or weakness. Nothing aggravates the symptoms. She has tried nothing for the symptoms. The treatment provided no relief. PAST MEDICAL HISTORY Diagnosis Date Chlamydia age [address] Mckeon at [facility] PAST SURGICAL HISTORY Procedure Laterality Date PAST SURGICAL HISTORY OF wisdom teeth [facility] ([facility]) ALLERGIES Patient has no known allergies. MEDICATIONS escitalopram oxalate (LEXAPRO) 10 mg tablet Take 1 tablet by mouth daily at bedtime. fluconazole (DIFLUCAN) 150 mg tablet Take 1 tablet by mouth once daily for 1 day. FAMILY HISTORY Problem Relation Age of Onset No Known Problems Paternal Grandmother Cancer Paternal Grandfather lung No Known Problems Maternal Grandmother No Known Problems Mother No Known Problems Father No Known Problems Brother None Other Social History Tobacco Use Smoking status: Former Packs/day: 0.50 Years: 20.00 Additional pack years: 0.00 Total pack years: 10.00 Types: Cigarettes Quit date: 05/01/2018 Years since quittin.9 Smokeless tobacco: Never Vaping Use Vaping Use: current everyday user Substances: Nicotine, Flavoring Devices: Pre-filled or refillable cartridge Substance Use Topics Alcohol use: Yes Comment: occasional Drug use: No Review of Systems Constitutional: Negative for chills, diaphoresis, fatigue and fever. HENT: Negative for congestion and sore throat. Eyes: Negative for pain, discharge, redness and itching. Respiratory: Negative for apnea, cough, choking and chest tightness. Cardiovascular: Negative for chest pain. Gastrointestinal: Negative for abdominal pain, anorexia, change in bowel habit, nausea and vomiting. Genitourinary: Negative for vaginal bleeding, vaginal discharge and vaginal pain. +vaginal itching +vaginal odor Musculoskeletal: Negative for arthralgias, joint swelling, myalgias and neck pain. Skin: Negative for color change, pallor and rash. Allergic/Immunologic: Negative for environmental allergies, food allergies and immunocompromised state. Neurological: Negative for dizziness, vertigo, facial asymmetry, weakness, numbness and headaches. Hematological: Negative for adenopathy. Does not bruise/bleed easily. Psychiatric/Behavioral: Negative for agitation and behavioral problems. Objective BP 128/86 Pulse 79 Temp 36.7 ?C (98.1 ?F) Resp 21 Wt 61.9 kg (136 lb 6.4 oz) LMP 05/04/2021 (Exact Date) SpO2 99% BMI 23.23 kg/m? Physical Exam Vitals and nursing note reviewed. Exam conducted with a special class welder present. Constitutional: General: She is not in acute distress. Appearance: Normal appearance. She is normal weight. She is not ill-appearing, toxic-appearing or diaphoretic. HENT: Head: Normocephalic and atraumatic. Right Ear: Ear canal and external ear normal. Left Ear: Ear canal and external ear normal. Nose: Nose normal. No congestion or rhinorrhea. Mouth/Throat: Mouth: Mucous membranes are moist. Pharynx: No oropharyngeal exudate or posterior oropharyngeal erythema. Eyes: General: Right eye: No discharge. Left eye: No discharge. Extraocular Movements: Extraocular movements intact. Conjunctiva/sclera: Conjunctivae normal. Pupils: Pupils are equal, round, and reactive to light. Cardiovascular: Rate and Rhythm: Normal rate and regular rhythm. Pulses: Normal pulses. Heart sounds: Normal heart sounds. No murmur heard. No friction rub. Pulmonary: Effort: Pulmonary effort is normal. No respiratory distress. Breath sounds: Normal breath sounds. No stridor. No wheezing, rhonchi or rales. Chest: Chest wall: No tenderness. Abdominal: General: Abdomen is flat. There is no distension. Palpations: Abdomen is soft. There is no mass. Tenderness: There is no abdominal te (more content not included)... [facility] 03-31-2023 History of Presen t illness Narrative This note was created using Yillioriter. Yanet Pavon is a 33 year old female. 33 year old female with PMH depression and anxiety presents for complaints of female Acute onset one week ago +itching +odor Denies sx Denies abdominal pain. Denies flank pain Denies fever or chills. Denies vaginal bleeding. Denies vaginal discharge. Endorses she had a new partner LMP-03/22/23 Denies homeopathic or OTC medications PACKAGER HAND. The history is provided by the patient. No foreign language teacher was used. Vaginal Problem This is a new problem. The current episode started in the past 7 days. The problem occurs constantly. The problem has been unchanged. Pertinent negatives include no abdominal pain, anorexia, arthralgias, change in bowel habit, chest pain, chills, congestion, coughing, diaphoresis, fatigue, fever, headaches, joint swelling, myalgias, nausea, neck pain, numbness, rash, sore throat, swollen glands, urinary symptoms, vertigo, visual change, vomiting or weakness. Nothing aggravates the symptoms. She has tried nothing for the symptoms. The treatment provided no relief. PAST MEDICAL HISTORY Diagnosis Date Chlamydia age [address] Mckeon at [facility] PAST SURGICAL HISTORY Procedure Laterality Date PAST SURGICAL HISTORY OF wisdom teeth [facility] ([facility]) ALLERGIES Patient has no known allergies. MEDICATIONS escitalopram oxalate (LEXAPRO) 10 mg tablet Take 1 tablet by mouth daily at bedtime. fluconazole (DIFLUCAN) 150 mg tablet Take 1 tablet by mouth once daily for 1 day. FAMILY HISTORY Problem Relation Age of Onset No Known Problems Paternal Grandmother Cancer Paternal Grandfather lung No Known Problems Maternal Grandmother No Known Problems Mother No Known Problems Father No Known Problems Brother None Other Social History Tobacco Use Smoking status: Former Packs/day: 0.50 Years: 20.00 Additional pack years: 0.00 Total pack years: 10.00 Types: Cigarettes Quit date: 05/01/2018 Years since quittin.9 Smokeless tobacco: Never Vaping Use Vaping Use: current everyday user Substances: Nicotine, Flavoring Devices: Pre-filled or refillable cartridge Substance Use Topics Alcohol use: Yes Comment: occasional Drug use: No Review of Systems Constitutional: Negative for chills, diaphoresis, fatigue and fever. HENT: Negative for congestion and sore throat. Eyes: Negative for pain, discharge, redness and itching. Respiratory: Negative for apnea, cough, choking and chest tightness. Cardiovascular: Negative for chest pain. Gastrointestinal: Negative for abdominal pain, anorexia, change in bowel habit, nausea and vomiting. Genitourinary: Negative for vaginal bleeding, vaginal discharge and vaginal pain. +vaginal itching +vaginal odor Musculoskeletal: Negative for arthralgias, joint swelling, myalgias and neck pain. Skin: Negative for color change, pallor and rash. Allergic/Immunologic: Negative for environmental allergies, food allergies and immunocompromised state. Neurological: Negative for dizziness, vertigo, facial asymmetry, weakness, numbness and headaches. Hematological: Negative for adenopathy. Does not bruise/bleed easily. Psychiatric/Behavioral: Negative for agitation and behavioral problems. Objective BP 128/86 Pulse 79 Temp 36.7 C (98.1 F) Resp 21 Wt 61.9 kg (136 lb 6.4 oz) LMP 05/04/2021 (Exact Date) SpO2 99% BMI 23.23 kg/m Physical Exam Vitals and nursing note reviewed. Exam conducted with a special class welder present. Constitutional: General: She is not in acute distress. Appearance: Normal appearance. She is normal weight. She is not ill-appearing, toxic-appearing or diaphoretic. HENT: Head: Normocephalic and atraumatic. Right Ear: Ear canal and external ear normal. Left Ear: Ear canal and external ear normal. Nose: Nose normal. No congestion or rhinorrhea. Mouth/Throat: Mouth: Mucous membranes are moist. Pharynx: No oropharyngeal exudate or posterior oropharyngeal erythema. Eyes: General: Right eye: No discharge. Left eye: No discharge. Extraocular Movements: Extraocular movements intact. Conjunctiva/sclera: Conjunctivae normal. Pupils: Pupils are equal, round, and reactive to light. Cardiovascular: Rate and Rhythm: Normal rate and regular rhythm. Pulses: Normal pulses. Heart sounds: Normal heart sounds. No murmur heard. No friction rub. Pulmonary: Effort: Pulmonary effort is normal. No respiratory distress. Breath sounds: Normal breath sounds. No stridor. No wheezing, rhonchi or rales. Chest: Chest wall: No tenderness. Abdominal: General: Abdomen is flat. There is no distension. Palpations: Abdomen is soft. There is no mass. Tenderness: There is no abdominal tenderness. There is no right CVA tenderness, left CVA tenderness, guarding or rebound. Hernia: No hernia is present. Genitourinary: Exam position: Lithotomy position. Labia: Right: No rash, tenderness or lesion. Left: No rash, tenderness or lesion. Comments: +vaginal discharge noted. +erythema of cervical OS Musculoskeletal: General: No swelling, tenderness, deformity or signs of injury. Normal range of motion. Cervical back: Normal range of motion and neck supple. No rigidity. Right lower leg: No edema. Left lower leg: No edema. Lymphadenopathy: Cervical: No cervical adenopathy. Skin: General: Skin is warm and dry. Capillary Refill: Capillary refill takes less than 2 seconds. Coloration: Skin is not jaundiced or pale. Findings: No bruising, erythema, lesion or rash. Neurological: General: No focal deficit present. Mental Status: She is alert and oriented to person, place, and time. Cranial Nerves: No cranial nerve deficit. Sensory: No sensory deficit. Motor: No weakness. Coordination: Coordination normal. Gait: Gait normal. Psychiatric: Mood and Affect: Mood normal. Behavior: Behavior normal. Thought Content: Thought content normal. Judgment: Judgment normal. Assessment and Plan ASSESSMENT/PLAN: 1. Vaginal itching - ICD9: 698.1, ICD10: N89.8 (primary diagnosis) X 1 week New partner Urine dip reveals scant blood and ketones Denies sx Mild discharge noted on exam Will cover with Diflucan Will guide further treatment based on results Patient encouraged to follow up for HPV testing with [employer] SWEEPER OPERATOR - BACTERIAL VAGINOSIS NAAT - COURT/TRICHOMONAS NAAT - GONORRHEA/CHLAMYDIA NAAT - UA DIP, URINE (POC) 2. Vaginal odor - ICD9: 625.8, ICD10: N89.8 See above Clau Duarte APRN.HOSPITALITY SERVICES MANAGER documented in this encounter [facility] 02-14-2023 History of Presen t illness Narrative Images from the original note were not included. Subjective HPI Tosni Pavon is a 33 year old female who presents with an area of concern in her left breast. She feels an area of swelling and tenderness. It has been present for about a week and has not changed. She denies any nipple changes. She has not had any other lumps or swellings. She feels she may be slightly bloated. She is not due for her menses until 02/20/23. She denies any family history of breast cancer. Review of Systems Constitutional: Negative for chills and fever. Gastrointestinal: Negative for abdominal pain. See HPI Musculoskeletal: Negative for myalgias. Skin: Negative for itching and rash. BP 122/86 Pulse 70 Temp 36.4 C (97.5 F) Resp 21 Wt 61.1 kg (134 lb 12.8 oz) LMP 05/04/2021 (Exact Date) SpO2 99% BMI 22.96 kg/m PAST MEDICAL HISTORY Diagnosis Date Chlamydia age [address] Mckeon at [facility] PAST SURGICAL HISTORY Procedure Laterality Date PAST SURGICAL HISTORY OF wisdom teeth [facility] ([facility]) ALLERGIES Patient has no known allergies. MEDICATIONS escitalopram oxalate (LEXAPRO) 10 mg tablet Take 1 tablet by mouth daily at bedtime. FAMILY HISTORY Problem Relation Age of Onset No Known Problems Paternal Grandmother Cancer Paternal Grandfather lung No Known Problems Maternal Grandmother No Known Problems Mother No Known Problems Father No Known Problems Brother None Other Social History Tobacco Use Smoking status: Former Packs/day: 0.50 Years: 20.00 Additional pack years: 0.00 Total pack years: 10.00 Types: Cigarettes Quit date: 05/01/2018 Years since quittin.7 Smokeless tobacco: Never Vaping Use Vaping Use: current everyday user Substances: Nicotine, Flavoring Devices: Pre-filled or refillable cartridge Substance Use Topics Alcohol use: Yes Comment: occasional Drug use: No Objective Physical Exam Vitals and nursing note reviewed. Constitutional: Appearance: Normal appearance. She is not ill-appearing. Chest: Breasts: Left: Swelling and tenderness present. No bleeding, inverted nipple, mass, nipple discharge or skin change. Skin: General: Skin is warm and dry. Findings: No bruising, erythema or rash. Neurological: Mental Status: She is alert. ASSESSMENT/PLAN: 1. Mass of upper outer quadrant of left breast - ICD9: 611.72, ICD10: N63.21 (primary diagnosis) - [facility] LEFT- schedule this as soon as possible. 2. Abdominal bloating - ICD9: 787.3, ICD10: R14.0 - HCG QUAL UR B/O- negative in office. - Follow-up with your PCP in 3-5 days if symptoms have not improved or sooner if symptoms worsen - Discussed red flags and need for immediate medical evaluation if any occur. Emerald Boyce APRN.CNP documented in this encounter [facility] 02-14-2023 Instructions Emerald Boyce APRN.CNP - 02/14/2023 11:10 AM EDT ASSESSMENT/PLAN: 1. Mass of upper outer quadrant of left breast - ICD9: 611.72, ICD10: N63.21 (primary diagnosis) - [facility] LEFT- schedule this as soon as possible. 2. Abdominal bloating - ICD9: 787.3, ICD10: R14.0 - HCG QUAL UR B/O- negative in office. - Follow-up with your PCP in 3-5 days if symptoms have not improved or sooner if symptoms worsen - Discussed red flags and need for immediate medical evaluation if any occur. Emerald Boyce APRN.CNP documented in this encounter [facility] 11-29-2022 History of Presen t illness Narrative Images from the original note were not included. Subjective The history is provided by the patient. No foreign language teacher was used. Review of Systems Constitutional: Negative. Skin: Negative. Objective Physical Exam Constitutional: Appearance: Normal appearance. Pulmonary: Effort: Pulmonary effort is normal. Skin: General: Skin is warm. Comments: Has what appears to be third-degree healing burn in the area marked above. With redness around it appears to be beginning stages of infection. Neurological: Mental Status: She is alert. PAST MEDICAL HISTORY Diagnosis Date Chlamydia age [address] Mckeon at [facility] PAST SURGICAL HISTORY Procedure Laterality Date PAST SURGICAL HISTORY OF wisdom teeth [facility] ([facility]) ALLERGIES Patient has no known allergies. MEDICATIONS escitalopram oxalate (LEXAPRO) 10 mg tablet Take 1 tablet by mouth daily at bedtime. doxycycline monohydrate 100 mg tablet Take 1 tablet by mouth twice daily for 7 days. FAMILY HISTORY Problem Relation Age of Onset No Known Problems Paternal Grandmother Cancer Paternal Grandfather lung No Known Problems Maternal Grandmother No Known Problems Mother No Known Problems Father No Known Problems Brother None Other Social History Tobacco Use Smoking status: Former Packs/day: 0.50 Years: 20.00 Pack years: 10.00 Types: Cigarettes Quit date: 05/01/2018 Years since quittin.5 Smokeless tobacco: Never Vaping Use Vaping Use: current everyday user Substances: Nicotine, Flavoring Devices: Pre-filled or refillable cartridge Substance Use Topics Alcohol use: Yes Comment: occasional Drug use: No ASSESSMENT/PLAN: 1. Skin infection - ICD9: 686.9, ICD10: L08.9 - DOXYCYCLINE MONOHYDRATE 100 MG TABLET Patient was educated about proper cleansing techniques proper use of medication and supportive therapies. Patient will monitor for any changes or worsening and go to the ER if this occurs. Patient was okay with this care plan. Cherelle Rodriguez APRN.[place] documented in this encounter [facility] 10-17-2022 Miscellaneous Notes Thais--03/27/22 Nov--nothing scheduled Last refill--09/16/22 30 with 0 refills Last labs--04/02/19 documented in this encounter [facility] 10-02-2022 Miscellaneous Notes 3rd Attempt- Called and was unable to LVM as the pt's mailbox was full. A Verold message was sent asking pt to set up Oct appt with PCP. 2nd Attempt- Called and was unable to LVM as the pts mailbox was full. 1st Attempt- Called and was unable to leave VM as the mailbox was full. A [employer] message has been sent to the pt Please assist pt with scheduling follow up appt in March- virtual or in person. Martin Graham LPN Script sent. Can please let patient know, as requested. Script sent. Due for an appointment - per Dr. Abrams's note in March -- wanted in office or virtual visit in 1-2 months. Please let patient know. Marie Rodarte APRN.[place] THAIS 03/27/22 NOV none scheduled. Jackie Patel MA Patient has been identified by name and date of : Yes Requested Prescriptions Pending Prescriptions Disp Refills escitalopram oxalate (LEXAPRO) 10 mg tablet 30 tablet 5 Sig: Take 1 tablet by mouth daily at bedtime. RX INSTRUCTIONS: Patient is on her way to the pharmacy, Notified of refill policy, will request it and see if the provider/PCP sends now. Patient aware RX will be sent to pharmacy. Please call the patient once sent. Dayanara Gardiner Pss documented in this encounter [facility] 04-18-2022 Miscellaneous Notes Noted, thank you. Jordyn Ibarra APRN.[place] Please advise. Abril Soliz Ma documented in this encounter [facility] 03-27-2022 History of Presen t illness Narrative CC: Tosin Pavon is a 32 year old female who presents to the office for anxiety HPI: Anxiety, was seen in 2 months ago by Angeline LEBRON, at that time Complaint(s) of worsening anxiety x few months. Has noted anxiety the last 2 years, intermittent. + stress with work, 2 year old, buying a house, family stress. Denies previous history of depression, anxiety, FH or personal history of bipolar. Denies SI/HI. Denies anhedonia. Overall sleeping okay, but at times anxiety will interrupt or make this more difficult. Symptoms are daily. She was started on low dose of sertraline Currently Anxiety symptoms, feels that they are improved but still struggling at times with feeling of anxiety in the evening, difficulty with trying to sleep some nights due to this. Wondering if can try an alternative medication? 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 Denies any SI or HI concerns. PAST MEDICAL HISTORY Diagnosis Date Chlamydia age [address] Mckeon at [facility] PAST SURGICAL HISTORY Procedure Laterality Date PAST SURGICAL HISTORY OF wisdom teeth [facility] ([facility]) Current Outpatient Medications Medication Sig escitalopram oxalate (LEXAPRO) 10 mg tablet Take 1 tablet by mouth daily at bedtime. Lhqepwqi-Sl-Ygh-Fe-FA tab Take 1 tablet by mouth. (Patient not taking: No sig reported) No current facility-administered medications for this visit. ALLERGIES No Known Allergies Social History Tobacco Use Smoking status: Former Packs/day: 0.50 Years: 20.00 Pack years: 10.00 Types: Cigarettes Quit date: 05/01/2018 Years since quittin.9 Smokeless tobacco: Never Vaping Use Vaping Use: current everyday user Substances: Nicotine, Flavoring Devices: Pre-filled or refillable cartridge Substance Use Topics Alcohol use: Yes Comment: occasional Drug use: No ROS: See HPI PE: BP 122/72 Pulse 65 Temp (Src) 97.6 (Right Tympanic) Resp 16 Wt 137 lb 3.2 oz (62.2kg) SpO2 99% LMP 05/04/2021 Gen: A&OX3, NAD, non-toxic appearing, anxious appearing HEENT: PERRLA, EOMs intact b/l, nares without drainage, pharynx without erythema, exudate, lesions, or drainage. Uvula midline. Neck: No LAD, no thyromegaly, no meningismus. CV: RRR, no murmur Lungs: CTA b/l, no wheezing Skin: No rashes, lesions, or wounds on exposed skin. ASSESSMENT/PLAN: 1. TAMIKA (generalized anxiety disorder) - ICD9: 300.02, ICD10: F41.1 - d/c sertraline. Start on lexapro- titrate up medication as needed, f/u in 1-2 months in office or virtual visit, she is aware to take rx in evening and aware of possible SE - DEPRESSION SCREENING/ASSESSMENT - ESCITALOPRAM 10 MG TABLET Hank Abrams DO I spent 29 minutes in the visit, with more than 50% of the total [id number] time of the visit in counseling / coordination of care. Return if no improvement. Follow up with Hank Abrams DO. To ER if develops chest pain, shortness of breath Discussed risks, benefits, alternatives, and potential side effects of medications. Patient/Guardian expressed understanding and agreed with the plan. See patient instructions. Hank Abrams DO [address] [place] [address] documented in this encounter [facility] 03-27-2022 Instructions Hank Abrams DO - 03/27/2022 5:36 PM EDT Continue Sertraline 25 mg in the evening x 1 week while starting on the Lexapro 1/2 tablet (5 mg) in the evening for 2 weeks. If symptoms aren't well controlled, then we will increase the dose to 10 mg in the evening. Usually by 3-4 weeks we will know what dose will work. documented in this encounter [facility] 01-15-2022 History of Presen t illness Narrative 01/15/2022 Patient presents with: Anxiety SUBJECTIVE: This is a 32 year old that is here today for Complaint(s) of worsening anxiety x few months. Has noted anxiety the last 2 years, intermittent. + stress with work, 2 year old, buying a house, family stress. Denies previous history of depression, anxiety, FH or personal history of bipolar. Denies SI/HI. Denies anhedonia. Overall sleeping okay, but at times anxiety will interrupt or make this more difficult. Symptoms are daily. PAST MEDICAL HISTORY Diagnosis Date Chlamydia age [address] Mckeon at [facility] ALLERGIES Patient has no known allergies. MEDICATIONS Current Outpatient Medications Medication Sig Igbrytol-If-Cid-Fe-FA ( VITAMIN) tab Take 1 tablet by mouth. (Patient not taking: Reported on 12/02/2020 ) No current facility-administered medications for this visit. SOCIAL HISTORY Social History Tobacco Use Smoking status: Former Smoker Packs/day: 0.50 Years: 20.00 Pack years: 10.00 Types: Cigarettes Quit date: 05/01/2018 Years since quittin.7 Smokeless tobacco: Never Used Vaping Use Vaping Use: current everyday user Substances: Nicotine, Flavoring Devices: Pre-filled or refillable cartridge Substance Use Topics Alcohol use: Yes Comment: occasional Drug use: No REVIEW OF SYSTEMS See HPI OBJECTIVE: BP 122/70 Pulse 82 Temp 36.7 C (98.1 F) Resp 16 Wt 59.4 kg (131 lb) LMP 05/04/2021 (Exact Date) SpO2 98% BMI 22.31 kg/m APPEARANCE Well appearing, alert, in no acute distress, well-hydrated, well nourished. Appearance: well dressed well groomed, cooperative, and pleasant Behavior: good eye contact Facial expression: teary Speech: fluent and coherent Mood: anxious Affect: appropriate Perceptions: none Thought process: goal directed Thought Content: normal Intelligence level: normal Insight: good Judgment: good Memory: normal memory ASSESSMENT/PLAN: 1. Anxiety - ICD9: 300.00, ICD10: F41.9 Discussed possible techniques to help manage anxiety. Good sleep hygiene, limiting caffeine. Recommend counseling Discussed risk/benefit of SSRI-patient prefers to start. Has had close family do well on Zoloft. Will start Zoloft 25 mg. Reviewed red flags and when to seek care sooner. F/u in 4 weeks with PCP, sooner if needed. - SERTRALINE 25 MG TABLET The patient indicates understanding of these issues and agrees with the plan. Reviewed red flags and when to seek care sooner. Angeline Fisher PA-C documented in this encounter [facility] 12-09-2018 History of Past i llness Narrative Problem Noted Date Resolved Date Rh negative state in antepartum period 9 08/05/2019 Overview: 12/09/18: O neg. Will need rhogam. Nicky Pires MD Encounter for supervision of other normal , first trimester 12/08/2018 08/05/2019 Current with histo ry of spontaneous during prior 10/15/2018 08/05/2019 Overview: 10/15/2018Patient had a miscarriage 06/12/2018 at 9 weeks. She denies any bleeding, pain or cramping this . Miscarriage precautions given. Patient to call/come in/go to E.R. if she develops pain or bleeding or PRN problems. Quantitative HCG ordered by Rosario Larios. TKRN Positive urine drug screen 05/21/201806/12 Overview: 05/21/18 - Tox screen + cannabinoids @ [facility] visit. Rosario Larios APRN.CNM Quit smoking 05/14/2018 06/12/2018 Overview: 05/14/2018Pt recently quit smoking 05/01/2018. Discussed risks of smoking during and advised pt to continue not smoking.TKRN Family history of congenital heart defect 201706/12/2018 Overview: 05/14/2018Patient's 2nd cousin born with hole in heart. Multiple corrective surgeries were done. TKRN History of rectal bleeding 05/14/201806/10 Overview: 05/14/2018Patient noted rectal bleeding x1 on 05/13. Denies any vaginal bleeding. Patient advised to call PCP if rectal bleeding persists. Patient wishes to discuss with Rosario Larios at [facility]. TKRN Patient request for diagnostic testing 8 06/12/2018 Overview: 10/15/2018Patient desires nuchal ultrasound . TKRN Sebaceous cyst 07/14/2013 06/12/2018 documented as of this encounter (statuses as of 01/28/2022) [facility] History of Past illness Narrative* Problem Noted Date Resolved Date Rh negative state in antepartum period 9 08/05/2019 Overview: 12/09/18: O neg. Will need rhogam. Nicky Pires MD Encounter for supervision of other normal , first trimester 12/08/2018 08/05/2019 Current with histo ry of spontaneous during prior 10/15/2018 08/05/2019 Overview: 10/15/2018Patient had a miscarriage 06/12/2018 at 9 weeks. She denies any bleeding, pain or cramping this . Miscarriage precautions given. Patient to call/come in/go to E.R. if she develops pain or bleeding or PRN problems. Quantitative HCG ordered by Rosario Larios. TKRN Positive urine drug screen 05/21/201806/12 Overview: 05/21/18 - Tox screen + cannabinoids @ [facility] visit. Rosario Larios, KEY BED INSTALLER.CNM Quit smoking 05/14/2018 06/12/2018 Overview: 05/14/2018Pt recently quit smoking 05/01/2018. Discussed risks of smoking during and advised pt to continue not smoking.TKRN Family history of congenital heart defect 201706/12/2018 Overview: 05/14/2018Patient's 2nd cousin born with hole in heart. Multiple corrective surgeries were done. TKRN History of rectal bleeding 05/14/201806/10 Overview: 05/14/2018Patient noted rectal bleeding x1 on 05/13. Denies any vaginal bleeding. Patient advised to call PCP if rectal bleeding persists. Patient wishes to discuss with Rosario Larios at [facility]. TKRN Patient request for diagnostic testing 8 06/12/2018 Overview: 10/15/2018Patient desires nuchal ultrasound . TKRN Sebaceous cyst 07/14/2013 06/12/2018 documented as of this encounter (statuses as of 03/28/2022) [facility] History of Past illness Narrative* Problem Noted Date Resolved Date Rh negative state in antepartum period 9 08/05/2019 Overview: 12/09/18: O neg. Will need rhogam. Nicky Pires MD Encounter for supervision of other normal , first trimester 12/08/2018 08/05/2019 Current with histo ry of spontaneous during prior 10/15/2018 08/05/2019 Overview: 10/15/2018Patient had a miscarriage 06/12/2018 at 9 weeks. She denies any bleeding, pain or cramping this . Miscarriage precautions given. Patient to call/come in/go to E.R. if she develops pain or bleeding or PRN problems. Quantitative HCG ordered by Rosario Larios. TKRN Positive urine drug screen 05/21/201806/12 Overview: 05/21/18 - Tox screen + cannabinoids @ [facility] visit. Rosario Larios APRN.CNM Quit smoking 05/14/2018 06/12/2018 Overview: 05/14/2018Pt recently quit smoking 05/01/2018. Discussed risks of smoking during and advised pt to continue not smoking.TKRN Family history of congenital heart defect 201706/12/2018 Overview: 05/14/2018Patient's 2nd cousin born with hole in heart. Multiple corrective surgeries were done. TKRN History of rectal bleeding 05/14/201806/10 Overview: 05/14/2018Patient noted rectal bleeding x1 on 05/13. Denies any vaginal bleeding. Patient advised to call PCP if rectal bleeding persists. Patient wishes to discuss with Rosario Larios at [facility]. TKRN Patient request for diagnostic testing 8 06/12/2018 Overview: 10/15/2018Patient desires nuchal ultrasound . TKRN Sebaceous cyst 07/14/2013 06/12/2018 documented as of this encounter (statuses as of 04/18/2022) [facility] History of Past illness Narrative* Problem Noted Date Resolved Date Rh negative state in antepartum period 9 08/05/2019 Overview: 12/09/18: O neg. Will need rhogam. Nicky Pires MD Encounter for supervision of other normal , first trimester 12/08/2018 08/05/2019 Current with histo ry of spontaneous during prior 10/15/2018 08/05/2019 Overview: 10/15/2018Patient had a miscarriage 06/12/2018 at 9 weeks. She denies any bleeding, pain or cramping this . Miscarriage precautions given. Patient to call/come in/go to E.R. if she develops pain or bleeding or PRN problems. Quantitative HCG ordered by Rosario Larios. TKRN Positive urine drug screen 05/21/201806/12 Overview: 05/21/18 - Tox screen + cannabinoids @ [facility] visit. Rosario Larios APRN.CNM Quit smoking 05/14/2018 06/12/2018 Overview: 05/14/2018Pt recently quit smoking 05/01/2018. Discussed risks of smoking during and advised pt to continue not smoking.TKRN Family history of congenital heart defect 201706/12/2018 Overview: 05/14/2018Patient's 2nd cousin born with hole in heart. Multiple corrective surgeries were done. TKRN History of rectal bleeding 05/14/201806/10 Overview: 05/14/2018Patient noted rectal bleeding x1 on 05/13. Denies any vaginal bleeding. Patient advised to call PCP if rectal bleeding persists. Patient wishes to discuss with Rosario Larios at [facility]. TKRN Patient request for diagnostic testing 8 06/12/2018 Overview: 10/15/2018Patient desires nuchal ultrasound . TKRN Sebaceous cyst 07/14/2013 06/12/2018 documented as of this encounter (statuses as of 07/16/2022) [facility] History of Past illness Narrative* Problem Noted Date Resolved Date Rh negative state in antepartum period 9 08/05/2019 Overview: 12/09/18: O neg. Will need rhogam. Nicky Pires MD Encounter for supervision of other normal , first trimester 12/08/2018 08/05/2019 Current with histo ry of spontaneous during prior 10/15/2018 08/05/2019 Overview: 10/15/2018Patient had a miscarriage 06/12/2018 at 9 weeks. She denies any bleeding, pain or cramping this . Miscarriage precautions given. Patient to call/come in/go to E.R. if she develops pain or bleeding or PRN problems. Quantitative HCG ordered by Rosario Larios. TKRN Positive urine drug screen 05/21/201806/12 Overview: 05/21/18 - Tox screen + cannabinoids @ [facility]. Rosario Larios APRN.CNM Quit smoking 05/14/2018 06/12/2018 Overview: 05/14/2018Pt recently quit smoking 05/01/2018. Discussed risks of smoking during and advised pt to continue not smoking.TKRN Family history of congenital heart defect 201706/12/2018 Overview: 05/14/2018Patient's 2nd cousin born with hole in heart. Multiple corrective surgeries were done. TKRN History of rectal bleeding 05/14/201806/10 Overview: 05/14/2018Patient noted rectal bleeding x1 on 05/13. Denies any vaginal bleeding. Patient advised to call PCP if rectal bleeding persists. Patient wishes to discuss with Rosario Larios at [facility]. TKRN Patient request for diagnostic testing 8 06/12/2018 Overview: 10/15/2018Patient desires nuchal ultrasound . TKRN Sebaceous cyst 07/14/2013 06/12/2018 documented as of this encounter (statuses as of 10/12/2022) [facility] History of Past illness Narrative* Problem Noted Date Resolved Date Rh negative state in antepartum period 9 08/05/2019 Overview: 12/09/18: O neg. Will need rhogam. Nicky Pires MD Encounter for supervision of other normal , first trimester 12/08/2018 08/05/2019 Current with histo ry of spontaneous during prior 10/15/2018 08/05/2019 Overview: 10/15/2018Patient had a miscarriage 06/12/2018 at 9 weeks. She denies any bleeding, pain or cramping this . Miscarriage precautions given. Patient to call/come in/go to E.R. if she develops pain or bleeding or PRN problems. Quantitative HCG ordered by Rosario Larios. TKRN Positive urine drug screen 05/21/201806/12 Overview: 05/21/18 - Tox screen + cannabinoids @ [facility]. Rosario Larios APRN.CNM Quit smoking 05/14/2018 06/12/2018 Overview: 05/14/2018Pt recently quit smoking 05/01/2018. Discussed risks of smoking during and advised pt to continue not smoking.TKRN Family history of congenital heart defect 201706/12/2018 Overview: 05/14/2018Patient's 2nd cousin born with hole in heart. Multiple corrective surgeries were done. TKRN History of rectal bleeding 05/14/201806/10 Overview: 05/14/2018Patient noted rectal bleeding x1 on 05/13. Denies any vaginal bleeding. Patient advised to call PCP if rectal bleeding persists. Patient wishes to discuss with Rosario Larios at [facility]. TKRN Patient request for diagnostic testing 8 06/12/2018 Overview: 10/15/2018Patient desires nuchal ultrasound . TKRN Sebaceous cyst 07/14/2013 06/12/2018 documented as of this encounter (statuses as of 10/17/2022) [facility] History of Past illness Narrative* Problem Noted Date Resolved Date Rh negative state in antepartum period 9 08/05/2019 Overview: 12/09/18: O neg. Will need rhogam. Nicky Pires MD Encounter for supervision of other normal , first trimester 12/08/2018 08/05/2019 Current with histo ry of spontaneous during prior 10/15/2018 08/05/2019 Overview: 10/15/2018Patient had a miscarriage 06/12/2018 at 9 weeks. She denies any bleeding, pain or cramping this . Miscarriage precautions given. Patient to call/come in/go to E.R. if she develops pain or bleeding or PRN problems. Quantitative HCG ordered by Rosario Larios. TKRN Positive urine drug screen 05/21/201806/12 Overview: 05/21/18 - Tox screen + cannabinoids @ [facility]. Rosario Larios APRN.CNM Quit smoking 05/14/2018 06/12/2018 Overview: 05/14/2018Pt recently quit smoking 05/01/2018. Discussed risks of smoking during and advised pt to continue not smoking.TKRN Family history of congenital heart defect 201706/12/2018 Overview: 05/14/2018Patient's 2nd cousin born with hole in heart. Multiple corrective surgeries were done. TKRN History of rectal bleeding 05/14/201806/10 Overview: 05/14/2018Patient noted rectal bleeding x1 on 05/13. Denies any vaginal bleeding. Patient advised to call PCP if rectal bleeding persists. Patient wishes to discuss with Rosario Larios at [facility]. TKRN Patient request for diagnostic testing 8 06/12/2018 Overview: 10/15/2018Patient desires nuchal ultrasound . TKRN Sebaceous cyst 07/14/2013 06/12/2018 documented as of this encounter (statuses as of 11/30/2022) [facility] History of Past illness Narrative* Problem Noted Date Diagnosed Date Resolved Date Rh negative state in antepartum period 12/09/2018 08/05/2019 Overview: 12/09/18: O neg. Will need rhogam. Nicky Pires MD Encounter for supervision of other normal , first trimester 12/08/2018 08/05/2019 Current with histo ry of spontaneous during prior 10/15/2018 08/05/19 Overview: 10/15/2018Patient had a miscarriage 06/12/2018 at 9 weeks. She denies any bleeding, pain or cramping this . Miscarriage precautions given. Patient to call/come in/go to E.R. if she develops pain or bleeding or PRN problems. Quantitative HCG ordered by Rosario Larios. TKRN Positive urine drug screen 05/21/2018 1 08/13/2017 Overview: 05/21/18 - Tox screen + cannabinoids @ [facility]. Rosario Larios APRN.CNM Quit smoking 05/14/2018 06/12/2018 Overview: 05/14/2018Pt recently quit smoking 05/01/2018. Discussed risks of smoking during and advised pt to continue not smoking.TKRN Family history of congenital heart defect 05/14/2018 06/12/2018 Overview: 05/14/2018Patient's 2nd cousin born with hole in heart. Multiple corrective surgeries were done. TKRN History of rectal bleeding 05/14/2018 1 08/11/2018 Overview: 05/14/2018Patient noted rectal bleeding x1 on 05/13. Denies any vaginal bleeding. Patient advised to call PCP if rectal bleeding persists. Patient wishes to discuss with Rosario Larios at [facility]. TKRN Patient request for diagnostic testing 05/14/2018 06/12/2018 Overview: 10/15/2018Patient desires nuchal ultrasound . TKRN Sebaceous cyst 07/14/2013 06/12/2018 documented as of this encounter (statuses as of 02/14/2023) [facility] History of Past illness Narrative* Problem Noted Date Diagnosed Date Resolved Date Rh negative state in antepartum period 12/09/2018 08/05/2019 Overview: 12/09/18: O neg. Will need rhogam. Nicky Pires MD Encounter for supervision of other normal , first trimester 12/08/2018 08/05/2019 Current with histo ry of spontaneous during prior 10/15/2018 08/05/19 Overview: 10/15/2018Patient had a miscarriage 06/12/2018 at 9 weeks. She denies any bleeding, pain or cramping this . Miscarriage precautions given. Patient to call/come in/go to E.R. if she develops pain or bleeding or PRN problems. Quantitative HCG ordered by Rosario Larios. TKRN Positive urine drug screen 05/21/2018 1 08/13/2017 Overview: 05/21/18 - Tox screen + cannabinoids @ [facility]. Rosario Larios, [employer].CNM Quit smoking 05/14/2018 06/12/2018 Overview: 05/14/2018Pt recently quit smoking 05/01/2018. Discussed risks of smoking during and advised pt to continue not smoking.TKRN Family history of congenital heart defect 05/14/2018 06/12/2018 Overview: 05/14/2018Patient's 2nd cousin born with hole in heart. Multiple corrective surgeries were done. TKRN History of rectal bleeding 05/14/2018 1 08/11/2018 Overview: 05/14/2018Patient noted rectal bleeding x1 on 05/13. Denies any vaginal bleeding. Patient advised to call PCP if rectal bleeding persists. Patient wishes to discuss with Rosario Larios at [facility]. TKRN Patient request for diagnostic testing 05/14/2018 06/12/2018 Overview: 10/15/2018Patient desires nuchal ultrasound . TKRN Sebaceous cyst 07/14/2013 06/12/2018 documented as of this encounter (statuses as of 04/01/2023) [facility] History of Past illness Narrative* Problem Noted Date Diagnosed Date Resolved Date Rh negative state in antepartum period 12/09/2018 08/05/2019 Overview: 12/09/18: O neg. Will need rhogam. Nicky Pires MD Encounter for supervision of other normal , first trimester 12/08/2018 08/05/2019 Current with histo ry of spontaneous during prior 10/15/2018 08/05/19 Overview: 10/15/2018Patient had a miscarriage 06/12/2018 at 9 weeks. She denies any bleeding, pain or cramping this . Miscarriage precautions given. Patient to call/come in/go to E.R. if she develops pain or bleeding or PRN problems. Quantitative HCG ordered by Rosario Larios. TKRN Positive urine drug screen 05/21/2018 1 08/13/2017 Overview: 05/21/18 - Tox screen + cannabinoids @ [facility]. Rosario Larios, [employer]ER.CNM Quit smoking 05/14/2018 06/12/2018 Overview: 05/14/2018Pt recently quit smoking 05/01/2018. Discussed risks of smoking during and advised pt to continue not smoking.TKRN Family history of congenital heart defect 05/14/2018 06/12/2018 Overview: 05/14/2018Patient's 2nd cousin born with hole in heart. Multiple corrective surgeries were done. TKRN History of rectal bleeding 05/14/2018 1 08/11/2018 Overview: 05/14/2018Patient noted rectal bleeding x1 on 05/13. Denies any vaginal bleeding. Patient advised to call PCP if rectal bleeding persists. Patient wishes to discuss with Rosario Larios at [facility]. TKRN Patient request for diagnostic testing 05/14/2018 06/12/2018 Overview: 10/15/2018Patient desires nuchal ultrasound . TKRN Sebaceous cyst 07/14/2013 06/12/2018 documented as of this encounter (statuses as of 04/01/2023) [facility] History of Past illness Narrative* Problem Noted Date Diagnosed Date Resolved Date Rh negative state in antepartum period 12/09/2018 08/05/2019 Overview: 12/09/18: O neg. Will need rhogam. Nicky Pires MD Encounter for supervision of other normal , first trimester 12/08/2018 08/05/2019 Current with histo ry of spontaneous during prior 10/15/2018 08/05/19 Overview: 10/15/2018Patient had a miscarriage 06/12/2018 at 9 weeks. She denies any bleeding, pain or cramping this . Miscarriage precautions given. Patient to call/come in/go to E.R. if she develops pain or bleeding or PRN problems. Quantitative HCG ordered by Rosario Larios. TKRN Positive urine drug screen 05/21/2018 1 08/13/2017 Overview: 05/21/18 - Tox screen + cannabinoids @ [facility]. Rosario Larios, [employer] IN[employer]ER.CNM Quit smoking 05/14/2018 06/12/2018 Overview: 05/14/2018Pt recently quit smoking 05/01/2018. Discussed risks of smoking during and advised pt to continue not smoking.TKRN Family history of congenital heart defect 05/14/2018 06/12/2018 Overview: 05/14/2018Patient's 2nd cousin born with hole in heart. Multiple corrective surgeries were done. TKRN History of rectal bleeding 05/14/2018 1 08/11/2018 Overview: 05/14/2018Patient noted rectal bleeding x1 on 05/13. Denies any vaginal bleeding. Patient advised to call PCP if rectal bleeding persists. Patient wishes to discuss with Rosario Larios at [facility]. TKRN Patient request for diagnostic testing 05/14/2018 06/12/2018 Overview: 10/15/2018Patient desires nuchal ultrasound . TKRN Sebaceous cyst 07/14/2013 06/12/2018 documented as of this encounter (statuses as of 04/03/2023) [facility] History of Past illness Narrative* Problem Noted Date Diagnosed Date Resolved Date Rh negative state in antepartum period 12/09/2018 08/05/2019 Overview: 12/09/18: O neg. Will need rhogam. Nicky Pires MD Encounter for supervision of other normal , first trimester 12/08/2018 08/05/2019 Current with histo ry of spontaneous during prior 10/15/2018 08/05/19 Overview: 10/15/2018Patient had a miscarriage 06/12/2018 at 9 weeks. She denies any bleeding, pain or cramping this . Miscarriage precautions given. Patient to call/come in/go to E.R. if she develops pain or bleeding or PRN problems. Quantitative HCG ordered by Rosario Larios. TKRN Positive urine drug screen 05/21/2018 1 08/13/2017 Overview: 05/21/18 - Tox screen + cannabinoids @ [facility] visit. Rosario Larios, [employer] IN[employer]ER.CNM Quit smoking 05/14/2018 06/12/2018 Overview: 05/14/2018Pt recently quit smoking 05/01/2018. Discussed risks of smoking during and advised pt to continue not smoking.TKRN Family history of congenital heart defect 05/14/2018 06/12/2018 Overview: 05/14/2018Patient's 2nd cousin born with hole in heart. Multiple corrective surgeries were done. TKRN History of rectal bleeding 05/14/2018 1 08/11/2018 Overview: 05/14/2018Patient noted rectal bleeding x1 on 05/13. Denies any vaginal bleeding. Patient advised to call PCP if rectal bleeding persists. Patient wishes to discuss with Rosario Larios at [facility]. TKRN Patient request for diagnostic testing 05/14/2018 06/12/2018 Overview: 10/15/2018Patient desires nuchal ultrasound . TKRN Sebaceous cyst 07/14/2013 06/12/2018 documented as of this encounter (statuses as of 04/03/2023) [facility] History of Past illness Narrative* Problem Noted Date Diagnosed Date Resolved Date Rh negative state in antepartum period 12/09/2018 08/05/2019 Overview: 12/09/18: O neg. Will need rhogam. Nicky Pires MD Encounter for supervision of other normal , first trimester 12/08/2018 08/05/2019 Current with histo ry of spontaneous during prior 10/15/2018 08/05/19 Overview: 10/15/2018Patient had a miscarriage 06/12/2018 at 9 weeks. She denies any bleeding, pain or cramping this . Miscarriage precautions given. Patient to call/come in/go to E.R. if she develops pain or bleeding or PRN problems. Quantitative HCG ordered by Rosario Larios. TKRN Positive urine drug screen 05/21/2018 1 08/13/2017 Overview: 05/21/18 - Tox screen + cannabinoids @ [facility]. Rosario Larios, [employer] INSTALLER.CNM Quit smoking 05/14/2018 06/12/2018 Overview: 05/14/2018Pt recently quit smoking 05/01/2018. Discussed risks of smoking during and advised pt to continue not smoking.TKRN Family history of congenital heart defect 05/14/2018 06/12/2018 Overview: 05/14/2018Patient's 2nd cousin born with hole in heart. Multiple corrective surgeries were done. TKRN History of rectal bleeding 05/14/2018 1 08/11/2018 Overview: 05/14/2018Patient noted rectal bleeding x1 on 05/13. Denies any vaginal bleeding. Patient advised to call PCP if rectal bleeding persists. Patient wishes to discuss with Rosario Larios at [facility]. TKRN Patient request for diagnostic testing 05/14/2018 06/12/2018 Overview: 10/15/2018Patient desires nuchal ultrasound . TKRN Sebaceous cyst 07/14/2013 06/12/2018 documented as of this encounter (statuses as of 04/10/2023) [facility] History of Past illness Narrative* Problem Noted Date Diagnosed Date Resolved Date Rh negative state in antepartum period 12/09/2018 08/05/2019 Overview: 12/09/18: O neg. Will need rhogam. Nicky Pires MD Encounter for supervision of other normal , first trimester 12/08/2018 08/05/2019 Current with histo ry of spontaneous during prior 10/15/2018 08/05/19 Overview: 10/15/2018Patient had a miscarriage 06/12/2018 at 9 weeks. She denies any bleeding, pain or cramping this . Miscarriage precautions given. Patient to call/come in/go to E.R. if she develops pain or bleeding or PRN problems. Quantitative HCG ordered by Rosario Larios. TKRN Positive urine drug screen 05/21/2018 1 08/13/2017 Overview: 05/21/18 - Tox screen + cannabinoids @ [facility]. Rosario Larios, [employer] INSTALLER.CNM Quit smoking 05/14/2018 06/12/2018 Overview: 05/14/2018Pt recently quit smoking 05/01/2018. Discussed risks of smoking during and advised pt to continue not smoking.TKRN Family history of congenital heart defect 05/14/2018 06/12/2018 Overview: 05/14/2018Patient's 2nd cousin born with hole in heart. Multiple corrective surgeries were done. TKRN History of rectal bleeding 05/14/2018 1 08/11/2018 Overview: 05/14/2018Patient noted rectal bleeding x1 on 05/13. Denies any vaginal bleeding. Patient advised to call PCP if rectal bleeding persists. Patient wishes to discuss with Rosario Larios at [facility]. TKRN Patient request for diagnostic testing 05/14/2018 06/12/2018 Overview: 10/15/2018Patient desires nuchal ultrasound . TKRN Sebaceous cyst 07/14/2013 06/12/2018 documented as of this encounter (statuses as of 04/25/2023) [facility] History of Past illness Narrative* Problem Noted Date Diagnosed Date Resolved Date Rh negative state in antepartum period 12/09/2018 08/05/2019 Overview: 12/09/18: O neg. Will need rhogam. Nicky Pires MD Encounter for supervision of other normal , first trimester 12/08/2018 08/05/2019 Current with histo ry of spontaneous during prior 10/15/2018 08/05/19 Overview: 10/15/2018Patient had a miscarriage 06/12/2018 at 9 weeks. She denies any bleeding, pain or cramping this . Miscarriage precautions given. Patient to call/come in/go to E[facility] if she develops pain or bleeding or PRN problems. Quantitative HCG ordered by Rosario Larios. TKRN Positive urine drug screen 05/21/2018 1 08/13/2017 Overview: 05/21/18 - Tox screen + cannabinoids @ [facility]. Rosario Larios APRN.CNM Quit smoking 05/14/2018 06/12/2018 Overview: 05/14/2018Pt recently quit smoking 05/01/2018. Discussed risks of smoking during and advised pt to continue not smoking.TKRN Family history of congenital heart defect 05/14/2018 06/12/2018 Overview: 05/14/2018Patient's 2nd cousin born with hole in heart. Multiple corrective surgeries were done. TKRN History of rectal bleeding 05/14/2018 1 08/11/2018 Overview: 05/14/2018Patient noted rectal bleeding x1 on 05/13. Denies any vaginal bleeding. Patient advised to call PCP if rectal bleeding persists. Patient wishes to discuss with Rosario Larios at [facility]. TKRN Patient request for diagnostic testing 05/14/2018 06/12/2018 Overview: 10/15/2018Patient desires nuchal ultrasound . TKRN Sebaceous cyst 07/14/2013 06/12/2018 documented as of this encounter (statuses as of 04/25/2023) [facility] History of Past illness Narrative* Problem Noted Date Diagnosed Date Resolved Date Rh negative state in antepartum period 12/09/2018 08/05/2019 Overview: 12/09/18: O neg. Will need rhogam. Nicky Pires MD Encounter for supervision of other normal , first trimester 12/08/2018 08/05/2019 Current with histo ry of spontaneous during prior 10/15/2018 08/05/19 Overview: 10/15/2018Patient had a miscarriage 06/12/2018 at 9 weeks. She denies any bleeding, pain or cramping this . Miscarriage precautions given. Patient to call/come in/go to E[facility] if she develops pain or bleeding or PRN problems. Quantitative HCG ordered by Rosario Larios. TKRN Positive urine drug screen 05/21/2018 1 08/13/2017 Overview: 05/21/18 - Tox screen + cannabinoids @ [facility]. Rosario Larios, [employer] INST[employer]ER.CNM Quit smoking 05/14/2018 06/12/2018 Overview: 05/14/2018Pt recently quit smoking 05/01/2018. Discussed risks of smoking during and advised pt to continue not smoking.TKRN Family history of congenital heart defect 05/14/2018 06/12/2018 Overview: 05/14/2018Patient's 2nd cousin born with hole in heart. Multiple corrective surgeries were done. TKRN History of rectal bleeding 05/14/2018 1 08/11/2018 Overview: 05/14/2018Patient noted rectal bleeding x1 on 05/13. Denies any vaginal bleeding. Patient advised to call PCP if rectal bleeding persists. Patient wishes to discuss with Rosario Larios at [facility]. TKRN Patient request for diagnostic testing 05/14/2018 06/12/2018 Overview: 10/15/2018Patient desires nuchal ultrasound . TKRN Sebaceous cyst 07/14/2013 06/12/2018 documented as of this encounter (statuses as of 04/29/2023) [facility] History of Past illness Narrative* Problem Noted Date Diagnosed Date Resolved Date Rh negative state in antepartum period 12/09/2018 08/05/2019 Overview: 12/09/18: O neg. Will need rhogam. Nicky Pires MD Encounter for supervision of other normal , first trimester 12/08/2018 08/05/2019 Current with histo ry of spontaneous during prior 10/15/2018 08/05/19 Overview: 10/15/2018Patient had a miscarriage 06/12/2018 at 9 weeks. She denies any bleeding, pain or cramping this . Miscarriage precautions given. Patient to call/come in/go to E[facility] if she develops pain or bleeding or PRN problems. Quantitative HCG ordered by Rosario Larios. TKRN Positive urine drug screen 05/21/2018 1 08/13/2017 Overview: 05/21/18 - Tox screen + cannabinoids @ [facility]. Rosario Larios, [employer] INST[employer]ER.CNM Quit smoking 05/14/2018 06/12/2018 Overview: 05/14/2018Pt recently quit smoking 05/01/2018. Discussed risks of smoking during and advised pt to continue not smoking.TKRN Family history of congenital heart defect 05/14/2018 06/12/2018 Overview: 05/14/2018Patient's 2nd cousin born with hole in heart. Multiple corrective surgeries were done. TKRN History of rectal bleeding 05/14/2018 1 08/11/2018 Overview: 05/14/2018Patient noted rectal bleeding x1 on 05/13. Denies any vaginal bleeding. Patient advised to call PCP if rectal bleeding persists. Patient wishes to discuss with Rosario Larios at [facility]. TKRN Patient request for diagnostic testing 05/14/2018 06/12/2018 Overview: 10/15/2018Patient desires nuchal ultrasound . TKRN Sebaceous cyst 07/14/2013 06/12/2018 documented as of this encounter (statuses as of 05/02/2023) [facility] History of Past illness Narrative* Problem Noted Date Diagnosed Date Resolved Date Rh negative state in antepartum period 12/09/2018 08/05/2019 Overview: 12/09/18: O neg. Will need rhogam. Nicky Pires MD Encounter for supervision of other normal , first trimester 12/08/2018 08/05/2019 Current with histo ry of spontaneous during prior 10/15/2018 08/05/19 Overview: 10/15/2018Patient had a miscarriage 06/12/2018 at 9 weeks. She denies any bleeding, pain or cramping this . Miscarriage precautions given. Patient to call/come in/go to E[facility] if she develops pain or bleeding or PRN problems. Quantitative HCG ordered by Rosario Larios. TKRN Positive urine drug screen 05/21/2018 1 08/13/2017 Overview: 05/21/18 - Tox screen + cannabinoids @ [facility] visit. Rosario Larios, [employer] INST[employer]ER.CNM Quit smoking 05/14/2018 06/12/2018 Overview: 05/14/2018Pt recently quit smoking 05/01/2018. Discussed risks of smoking during and advised pt to continue not smoking.TKRN Family history of congenital heart defect 05/14/2018 06/12/2018 Overview: 05/14/2018Patient's 2nd cousin born with hole in heart. Multiple corrective surgeries were done. TKRN History of rectal bleeding 05/14/2018 1 08/11/2018 Overview: 05/14/2018Patient noted rectal bleeding x1 on 05/13. Denies any vaginal bleeding. Patient advised to call PCP if rectal bleeding persists. Patient wishes to discuss with Rosario Larios at [facility]. TKRN Patient request for diagnostic testing 05/14/2018 06/12/2018 Overview: 10/15/2018Patient desires nuchal ultrasound . TKRN Sebaceous cyst 07/14/2013 06/12/2018 documented as of this encounter (statuses as of 05/26/2023) [facility] History of Past illness Narrative* Problem Noted Date Diagnosed Date Resolved Date Rh negative state in antepartum period 12/09/2018 08/05/2019 Overview: 12/09/18: O neg. Will need rhogam. Nicky Pires MD Encounter for supervision of other normal , first trimester 12/08/2018 08/05/2019 Current with histo ry of spontaneous during prior 10/15/2018 08/05/19 Overview: 10/15/2018Patient had a miscarriage 06/12/2018 at 9 weeks. She denies any bleeding, pain or cramping this . Miscarriage precautions given. Patient to call/come in/go to E.R. if she develops pain or bleeding or PRN problems. Quantitative HCG ordered by Rosario Larios. TKRN Positive urine drug screen 05/21/2018 1 08/13/2017 Overview: 05/21/18 - Tox screen + cannabinoids @ NOB visit. Rosario Larios APRN.CNM Quit smoking 05/14/2018 06/12/2018 Overview: 05/14/2018Pt recently quit smoking 05/01/2018. Discussed risks of smoking during and advised pt to continue not smoking.TKRN Family history of congenital heart defect 05/14/2018 06/12/2018 Overview: 05/14/2018Patient's 2nd cousin born with hole in heart. Multiple corrective surgeries were done. TKRN History of rectal bleeding 05/14/2018 1 08/11/2018 Overview: 05/14/2018Patient noted rectal bleeding x1 on 05/13. Denies any vaginal bleeding. Patient advised to call PCP if rectal bleeding persists. Patient wishes to discuss with Rosario Larios at [facility]. TKRN Patient request for diagnostic testing 05/14/2018 06/12/2018 Overview: 10/15/2018Patient desires nuchal ultrasound . TKRN Sebaceous cyst 07/14/2013 06/12/2018 documented as of this encounter (statuses as of 10/03/2023) [facility] Diagnosis Anxiety- Primary Anxiety state, unspecified [facility] Diagnosis TAMIKA (generalized anxiety disorder)- Primary Generalized anxiety disorder [facility] Diagnosis TAMIKA (generalized anxiety disorder) Generalized anxiety disorder [facility] Diagnosis TAMIKA (generalized anxiety disorder) Generalized anxiety disorder [facility] Diagnosis TAMIKA (generalized anxiety disorder) Generalized anxiety disorder [facility] Diagnosis Skin infection- Primary Unspecified local infection of skin and subcutaneous tissue [facility] Diagnosis Mass of upper inner quadrant of left breast- Primary Abdominal bloating Flatulence, eructation, and gas pain [facility] Diagnosis Vaginal itching- Primary Pruritus of genital organs Vaginal odor Unspecified symptom associated with female genital organs [facility] Diagnosis Encounter for gynecological examination (general) (routine) without abnormal findings- Primary Screening for cervical cancer Screening for malignant neoplasm of the cervix Encounter for screening for human papillomavirus (HPV) Special screening examination for human papillomavirus (HPV) Papanicolaou smear of cervix with atypical squamous cells of undetermined significance (ASC-US) Cervical high risk human papillomavirus (HPV) DNA test positive Need for prophylactic vaccination/inoculation against viral disease Need for prophylactic vaccination and inoculation against other viral diseases [facility] Diagnosis Rash- Primary Rash and other nonspecific skin eruption [facility] [place] [facility] Diagnosis Anxiety with depression- Primary [facility] [place] [facility]* Diagnosis Need for prophylactic vaccination/inoculation against viral disease- Primary Need for prophylactic vaccination and inoculation against other viral diseases [facility] [place] [facility] Diagnosis Injury of left ankle, initial encounter- Primary Abnormal x-ray Other nonspecific (abnormal) findings on radiological and other examinations of body structure [facility] [place] [facility]* Diagnosis Encounter for gynecological examination (general) (routine) without abnormal findings- Primary Anovulation Female infertility associated with anovulation documented [facility] this encounter [facility] [place] [facility]* Diagnosis Encounter for test, result positive- Primary examination or test, positive result documented in this encounter [facility] for referral (narrative)* Diagnostic Procedure Only (Urgent) - Authorized Specialty Diagnoses / Procedures Referred By Glenac t Referred To Contact BR IMAGING Diagnoses Mass of upper inner quadrant of left breast Procedures [facility] LEFT DIAGNOSTIC MAMMOGRAPHY COMPUTER-AIDED DETCJ UNI Emerald Boyce APRN.HOSPITALITY SERVICES MANAGER [address] [place] [address] [facility] [address] [place] [address] Referral ID Status Reason Start Date Expiration Date Visits Requested Visits Authorized [id number] Authorized Auto-Generat ed Referral 02/14/2023 03/15/2024 1 1 [facility] for visit Narrative* Diagnostic Procedure Only (Urgent) - Closed Specialty Diagnoses / Procedures Referred By Contac t Referred To Contact XR IMAGING Diagnoses Injury of left ankle, initial encounter Procedures XR ANKLE GENERAL 3V AP/LAT/OBL LEFT RADEX ANKLE COMPLETE MINIMUM 3 VIEWS Viral Parish APRN.HOSPITALITY SERVICES MANAGER [address] [place] [address] [place] [address] Referral ID Status Reason Start Date Expiration Date V isits Requested Visits Authorized [id number] Closed Auto-Generate d Referral 02/17/2024 03/18/2025 1 1 [facility] Reason for Referral Specialty Diagnoses / Procedures Referred By Contac t Referred To Contact Orthopedics Diagnoses Injury of left ankle, initial encounter Abnormal x-ray Procedures CONSULT TO ORTHOPAEDICS OFFICE/OUTPATIENT [facility] MDM 60 MINUTES Viral Parish APRN.HOSPITALITY SERVICES MANAGER [address] [place] [address] Referral ID Status Reason Start Date Expiration Date Visits Requested Visits Authorized [id number] Authorized PCP Requested Referral 02/17/2024 02/16/2025 1 1 Specialty Diagnoses / Procedures Referred By Contfabián t Referred To Contact XR IMAGING Diagnoses Injury of left ankle, initial encounter Procedures XR ANKLE GENERAL 3V AP/LAT/OBL LEFT RADEX ANKLE COMPLETE MINIMUM 3 VIEWS Viral Parish APRN.HOSPITALITY SERVICES MANAGER [address] [place] [address] [place] [address] Referral ID Status Reason Start Date Expiration Date V isits Requested Visits Authorized [id number] Closed Auto-Generate d Referral 02/17/2024 03/18/2025 1 1 Summary Purpose Family History No Family History Records Found Advance Directives No Advanced Directives Records Found Additional Source Comments Source Comments (unrecognize d section and content) In the event this informatio n is protected by the Federal Confidentiality of Alcohol and Drug Abuse Patient Records regulations: The Federal rules restrict any use of the information to criminally investigate or prosecute any alcohol or drug abuse patient.[facility] the event this information is protected by the Federal Confidentiality of Alcohol and Drug Abuse Patient Records regulations: The Federal rules restrict any use of the information to criminally investigate or prosecute any alcohol or drug abuse patient.[facility] the event this information is protected by the Federal Confidentiality of Alcohol and Drug Abuse Patient Records regulations: The Federal rules restrict any use of the information to criminally investigate or prosecute any alcohol or drug abuse patient.[facility] the event this information is protected by the Federal Confidentiality of Alcohol and Drug Abuse Patient Records regulations: The Federal rules restrict any use of the information to criminally investigate or prosecute any alcohol or drug abuse patient.[facility] the event this information is protected by the Federal Confidentiality of Alcohol and Drug Abuse Patient Records regulations: The Federal rules restrict any use of the information to criminally investigate or prosecute any alcohol or drug abuse patient.[facility] the event this information is protected by the Federal Confidentiality of Alcohol and Drug Abuse Patient Records regulations: The Federal rules restrict any use of the information to criminally investigate or prosecute any alcohol or drug abuse patient.[facility] the event this information is protected by the Federal Confidentiality of Alcohol and Drug Abuse Patient Records regulations: The Federal rules restrict any use of the information to criminally investigate or prosecute any alcohol or drug abuse patient.[facility] the event this information is protected by the Federal Confidentiality of Alcohol and Drug Abuse Patient Records regulations: The Federal rules restrict any use of the information to criminally investigate or prosecute any alcohol or drug abuse patient.[facility] the event this information is protected by the Federal Confidentiality of Alcohol and Drug Abuse Patient Records regulations: The Federal rules restrict any use of the information to criminally investigate or prosecute any alcohol or drug abuse patient.[facility] the event this information is protected by the Federal Confidentiality of Alcohol and Drug Abuse Patient Records regulations: The Federal rules restrict any use of the information to criminally investigate or prosecute any alcohol or drug abuse patient.[facility] the event this information is protected by the Federal Confidentiality of Alcohol and Drug Abuse Patient Records regulations: The Federal rules restrict any use of the information to criminally investigate or prosecute any alcohol or drug abuse patient.[facility] the event this information is protected by the Federal Confidentiality of Alcohol and Drug Abuse Patient Records regulations: The Federal rules restrict any use of the information to criminally investigate or prosecute any alcohol or drug abuse patient.[facility] Rehabilitation[facility] the event this information is protected by the Federal Confidentiality of Alcohol and Drug Abuse Patient Records regulations: The Federal rules restrict any use of the information to criminally investigate or prosecute any alcohol or drug abuse patient.[facility] the event this information is protected by the Federal Confidentiality of Alcohol and Drug Abuse Patient Records regulations: The Federal rules restrict any use of the information to criminally investigate or prosecute any alcohol or drug abuse patient.[facility] the event this information is protected by the Federal Confidentiality of Alcohol and Drug Abuse Patient Records regulations: The Federal rules restrict any use of the information to criminally investigate or prosecute any alcohol or drug abuse patient.[facility] Rehabilitation[facility] the event this information is protected by the Federal Confidentiality of Alcohol and Drug Abuse Patient Records regulations: The Federal rules restrict any use of the information to criminally investigate or prosecute any alcohol or drug abuse patient.[facility] the event this information is protected by the Federal Confidentiality of Alcohol and Drug Abuse Patient Records regulations: The Federal rules restrict any use of the information to criminally investigate or prosecute any alcohol or drug abuse patient.[facility] Rehabilitation[facility] the event this information is protected by the Federal Confidentiality of Alcohol and Drug Abuse Patient Records regulations: The Federal rules restrict any use of the information to criminally investigate or prosecute any alcohol or drug abuse patient.[facility] the event this information is protected by the Federal Confidentiality of Alcohol and Drug Abuse Patient Records regulations: The Federal rules restrict any use of the information to criminally investigate or prosecute any alcohol or drug abuse patient.[facility] Rehabilitation[facility] the event this information is protected by the Federal Confidentiality of Alcohol and Drug Abuse Patient Records regulations: The Federal rules restrict any use of the information to criminally investigate or prosecute any alcohol or drug abuse patient.[facility] Rehabilitation[facility] the event this information is protected by the Federal Confidentiality of Alcohol and Drug Abuse Patient Records regulations: The Federal rules restrict any use of the information to criminally investigate or prosecute any alcohol or drug abuse patient.[facility] the event this information is protected by the Federal Confidentiality of Alcohol and Drug Abuse Patient Records regulations: The Federal rules restrict any use of the information to criminally investigate or prosecute any alcohol or drug abuse patient.[facility] Rehabilitation[facility] the event this information is protected by the Federal Confidentiality of Alcohol and Drug Abuse Patient Records regulations: The Federal rules restrict any use of the information to criminally investigate or prosecute any alcohol or drug abuse patient.[facility] Rehabilitation[facility] the event this information is protected by the Federal Confidentiality of Alcohol and Drug Abuse Patient Records regulations: The Federal rules restrict any use of the information to criminally investigate or prosecute any alcohol or drug abuse patient.[facility] Rehabilitation[facility] the event this information is protected by the Federal Confidentiality of Alcohol and Drug Abuse Patient Records regulations: The Federal rules restrict any use of the information to criminally investigate or prosecute any alcohol or drug abuse patient.[facility] Rehabilitation[facility] the event this information is protected by the Federal Confidentiality of Alcohol and Drug Abuse Patient Records regulations: The Federal rules restrict any use of the information to criminally investigate or prosecute any alcohol or drug abuse patient.[facility] RehabilitationIn the event this information is protected by the Federal Confidentiality of Alcohol and Drug Abuse Patient Records regulations: The Federal rules restrict any use of the information to criminally investigate or prosecute any alcohol or drug abuse patient.[facility] RehabilitationIn the event this information is protected by the Federal Confidentiality of Alcohol and Drug Abuse Patient Records regulations: The Federal rules restrict any use of the information to criminally investigate or prosecute any alcohol or drug abuse patient.[facility] Reason for Visit (unrecogniz ed section and content) Reason Comments Anxiety Reason Comments Medication Follow-up Reason Onset Date Comments Refill Request 07/16/2022 Reason Onset Date Comments Refill Request 09/16/2022 SEE RX NOTES Reason Onset Date Comments Refill Request 10/17/2022 Reason Comments Burn L lower leg x6 days Reason Comments Mass Lump in left breast x 1 week Reason Comments Vaginal Problem Possible yeast or BV x 1 week having some itching and some odor Reason Onset Date Comments Yearly Exam Gardasil Injection 04/02/2023 Reason Comments Results Reason Comments Rash 1 month painful and itchy. Reason Comments bh consult Reason Onset Date Comments Refill Request 05/23/2023 Reason Onset Date Comments Nurse Visit Gardasil Injection 10/03/2023 Reason Comments left ankle pain Rolled ankle 1 month ago Reason Comments Well Woman Reason Comments Discussion Care Teams (unrecognized sec tion and content) Transmitter Chief Relationship Specialty Start Date End Date Hank Abrams, DO [address] [place] [address] PCP - General Family Practice 07/14/13 Transmitter Chief Relationship Specialty Start Date End Date Hank Abrams DO [address] [place] [address] PCP - General Family Medicine 07/14/13 Transmitter Chief Relationship Specialty Start Date End Date Hank Abrams DO [address] [place] [address] PCP - General Family Medicine 07/14/13 Transmitter Chief Relationship Specialty Start Date End Date Hank Abrams DO [address] [place] [address] PCP - General Family Medicine 07/14/13 Transmitter Chief Relationship Specialty Start Date End Date Hank Abrams DO [address] [place] [address] PCP - General Family Medicine 07/14/13 Transmitter Chief Relationship Specialty Start Date End Date Hank Abrams DO [address] [place] [address] PCP - General Family Medicine 07/14/13 Transmitter Chief Relationship Specialty Start Date End Date Hank Abrams DO [address] [place] [address] PCP - General Family Medicine 07/14/13 Transmitter Chief Relationship Specialty Start Date End Date Hank Abrams DO [address] [place] [address] PCP - General Family Medicine 07/14/13 Transmitter Chief Relationship Specialty Start Date End Date Hank Abrams, [address] [place] [address] PCP - General Family Medicine 07/14/13 Transmitter Chief Relationship Specialty Start Date End Date Hank Abrams DO [address] [place] [address] PCP - General Family Medicine 07/14/13 Transmitter Chief Relationship Specialty Start Date End Date Hank Abrams DO [address] [place] [address] PCP - General Family Medicine 07/14/13 Transmitter Chief Relationship Specialty Start Date End Date Hank Abrams DO [address] [place] [address] PCP - General Family Medicine 07/14/13 Transmitter Chief Relationship Specialty Start Date End Date Hank Abrams DO [address] [place] [address] PCP - General Family Medicine 07/14/13 Transmitter Chief Relationship Specialty Start Date End Date Hank Abrams DO [address] [place] [address] PCP - General Family Medicine 07/14/13 Transmitter Chief Relationship Specialty Start Date End Date Hank Abrams DO [address] [place] [address] PCP - General Family Medicine 07/14/13 Transmitter Chief Relationship Specialty Start Date End Date Hank Abrams DO [address] [facility] [place] [address] PCP - General Family Medicine 07/14/13 Transmitter Chief Relationship Specialty Start Date End Date Hank Abrams DO [address] [facility] [place] [address] PCP - General Family Medicine 07/14/13 Transmitter Chief Relationship Specialty Start Date End Date Hank Abrams DO [address] [facility] [place] [address] PCP - General Family Medicine 07/14/13 Transmitter Chief Relationship Specialty Start Date End Date Hank Abrams DO [address] [facility] [place] [address] PCP - General Family Medicine 07/14/13 Transmitter Chief Relationship Specialty Start Date End Date Hank Abrams DO [address] [facility] [place] [address] PCP - General Family Medicine 07/14/13 INFORMATION SOURCE (unrecogn ized section and content) DATE CREATED AUTHOR 03/20/2024 [facility] FOR RECORDS PERTAINING TO PATIENTS WHO ARE OR HAVE BEEN ENROLLED IN A CHEMICAL DEPENDENCY/SUBSTANCEABUSE PROGRAM, SOME INFORMATION MAY BE OMITTED. This clinical summary was aggregated from multiple sources. Caution should be exercised in using it in the provision of clinical care. This summary normalizes information from multiple sources, and as a consequence, information in this document may materially change the coding, format and clinical context of patient data. In addition, data may be omitted in some cases. CLINICAL DECISIONS SHOULD BE BASED ON THE PRIMARY CLINICAL RECORDS. [facility]. provides no warranty or guarantee of the accuracy or completeness of information in this document.
== END | disposition home or self-care (01) ==
PROVIDERS: PCP Pediatrics; Referring Provider Orthopaedic Surgery Sports Medicine; Visit Provider Orthopaedic Surgery Sports Medicine
DX: M89.9 Disorder of bone, unspecified (principal)
CPT/HCPCS: 73718

== ENCOUNTER 2024-10-28 23:30 | Inpatient (IN) | payer MEDICAID, SELFPAY ==
[2024-10-28 22:45] VITALS: PULSE 81; RESP 18; TEMP 36.9; O2SAT 97
[2024-10-28 22:52] VITALS: PULSE 79; O2SAT 98
[2024-10-28 22:53] VITALS: BP 145/78; PULSE 76
[2024-10-28 23:03] VITALS: PULSE 66; O2SAT 98
[2024-10-28 23:06] VITALS: BMI 26.6
[2024-10-28 23:08] VITALS: PULSE 97; O2SAT 98
[2024-10-28 23:27] LABS: ROM Internal Control Test YES-OK TO RESULT pt. (Internal QC)
[2024-10-28 23:31] LABS: ROM Patient Test POSITIVE (Negative); Record Kit Lot#, ROM+ K3358
[2024-10-28 23:54] VITALS: BP 132/86; PULSE 88
[2024-10-29] VITALS (33 sets, daily range): BP systolic 100–128; BP diastolic 56–82; PULSE 68–101; RESP 16–18; TEMP 35.9–37.1; O2SAT 90–100
[2024-10-29 00:19] LABS: Absolute Lymphocyte Count 2.08 X10^3/uL (0.83-4.51); Absolute Neutrophil Count 5.2 X10^3/uL (2.0-7.7); Basophil# 0.04 X10^3/uL; Basophil% 0.5 % (0-1); Eosinophil# 0.04 X10^3/uL; Eosinophils% 0.5 % (0-5); Hematocrit 34.7 % (37-47); Lymphocyte # 2.08 X10^3/ul (0.83-4.51); Lymphocyte % 26.2 % (19-41); Mean Corp Hgb Conc 34.6 g/dL (32-36); Mean Corpuscular Hgb 30.5 pg (27.0-32.0); Mean Corpuscular Volume 88.3 fL (81-99); Mean Platelet Vol. 10.1 fl (6.2-12.0); Monocyte# 0.54 X10^3/uL; Monocyte% 6.8 % (0-10); NRBC Flagged by Analyzer 0 % (0-5); Neutrophil # 5.21 X10^3/uL (2.7-7.7); Neutrophil % 65.5 % (47-70); Platelet Count 201 K/mm3 (150-450); RBC Distribution Width CV 12.6 % (11.6-14.6); RBC Distribution Width SD 40.2 fl (35.1-43.9); Red Blood Count 3.93 M/mm3 (4.2-5.4)
[2024-10-29 01:19] LABS: Amphetamine Urine NEGATIVE (<1000 ng/mL); Barbiturate Urine NEGATIVE (< 200 ng/mL); Benzodiazepine Urine NEGATIVE (< 200 ng/mL); Buprenorphine Urine NEGATIVE (< 200 ng/mL); Cocaine Urine NEGATIVE (< 300 ng/mL); Fentanyl, Urine NEGATIVE; Methadone Urine NEGATIVE (< 300 ng/mL); Opiates Urine NEGATIVE (< 300 ng/mL); Oxycodone, Urine NEGATIVE (< 100 ng/mL); PCP Urine NEGATIVE (< 25 ng/mL); THC Urine NEGATIVE (< 50 ng/mL)
[2024-10-29 01:24] LABS: Syphilis Antibodies Nonreactive (Nonreactive)
[2024-10-29] MEDS: 0.9% Saline Lock 10 ML Syringe IV (03:12)
[2024-10-29] MEDS: fentaNYL 100 MCG/2 ML Ampul IV (03:13)
[2024-10-29] MEDS: Oxytocin 15 Units/NS 250ml 15 UNITS/250 ML IV.SOLN 334 UNITS IV (06:35)
--- NOTE | 2024-10-29 06:48 | HP.PCM.OB_ITS ---
HPI - General General Date of Admission: 10/28/24 Date of Service: 10/29/24 Chief Complaint: rupture of membranes HPI Narrative TOSIN IVERSON, is a 34 F who presents 3 para 1-0-1-1 who presented to 36-6/7 weeks with spontaneous rupture membranes and contractions. She denies any vaginal bleeding. She has had good movement. complicated to date by history of abnormal Pap smears, anxiety, Rh- Maternal Data Information Final FLORY: 11/19/24 Gestational age: 37 0/7 PFSH PFS Medical History (Updated 10/29/24 @ 06:[address] Diane Rush MD) Anxiety Lesion of bone of left lower leg Left ankle pain Home Medications ?Medication ?Instructions ?Recorded ?Last Taken ?Type vits 75-iron 28 mg-folic 1 pkg PO DAILY pregn sanchez 10/28/24 10/28/24 History acid 800 mcg-omega-3 oral combo pack (One A Day Women's DHA) Allergy/AdvReac Type Severity Reaction Status Date / Time No Known Allergies Allergy Verified 10/28/24 23:05 Social History (Updated 03/04/24 @ 15:11 by Bonnie Wise MA) household members: significant other and children Smoking Status: Never smoker alcohol intake: current History Elective abortions Hx Para 1 Spontaneous abortions Hx # Term Pregnancies Ectopic pregnancies Hx # Pregnancies Multiple births # of living children ROS Constitutional Constitutional: Denies fatigue, fever(s) or malaise Eyes Eyes: Denies change in vision ENT HEENT: Denies dizziness or headache(s) Cardiovascular Cardiovascular: Denies chest pain, dyspnea or lightheadedness Respiratory/Chest Respiratory/Chest: Denies cough or dyspnea Gastrointestinal Gastrointestinal: Denies change in bowel habits Genitourinary Genitourinary: Denies burning urination or genital lesions Integumentary Integumentary: Denies rash Neurologic Neurologic: Denies confusion, dizziness, headache(s), numbness or weakness Vital Signs Vital Signs Vital Signs: 10/28/24 22:45 10/28/24 22:45 10/28/24 22:45 Temperature Temperature Source Temporal Pulse Rate 81 Respiratory Rate 18 Blood Pressure BP Systolic BP Diastolic Pulse Ox 10/28/24 22:45 10/28/24 22:45 10/28/24 22:52 Temperature 98.5 F Temperature Source Pulse Rate 79 Respiratory Rate Blood Pressure BP Systolic BP Diastolic Pulse Ox 97 10/28/24 22:52 10/28/24 22:53 10/28/24 22:53 Temperature Temperature Source Pulse Rate 76 Respiratory Rate Blood Pressure 145/78 H BP Systolic 145 BP Diastolic 78 Pulse Ox 98 10/28/24 23:03 10/28/24 23:03 10/28/24 23:08 Temperature Temperature Source Pulse Rate 66 97 Respiratory Rate Blood Pressure BP Systolic BP Diastolic Pulse Ox 98 10/28/24 23:08 10/28/24 23:54 10/28/24 23:54 Temperature Temperature Source Pulse Rate 88 Respiratory Rate Blood Pressure 132/86 H BP Systolic 132 BP Diastolic 86 Pulse Ox 98 10/29/24 03:31 10/29/24 03:31 10/29/24 03:31 Temperature Temperature Source Pulse Rate 82 Respiratory Rate Blood Pressure 103/58 L BP Systolic 103 BP Diastolic 58 Pulse Ox 100 10/29/24 03:32 10/29/24 03:32 10/29/24 03:32 Temperature 98.4 F Temperature Source Temporal Pulse Rate Respiratory Rate 16 Blood Pressure BP Systolic BP Diastolic Pulse Ox 10/29/24 05:14 10/29/24 05:14 10/29/24 05:14 Temperature Temperature Source Pulse Rate 68 83 Respiratory Rate Blood Pressure 119/73 BP Systolic 119 BP Diastolic 73 Pulse Ox 10/29/24 05:14 10/29/24 05:14 10/29/24 05:14 Temperature Temperature Source Temporal Pulse Rate Respiratory Rate 16 Blood Pressure BP Systolic BP Diastolic Pulse Ox 100 10/29/24 05:14 10/29/24 06:00 10/29/24 06:00 Temperature 97.8 F Temperature Source Pulse Rate 77 Respiratory Rate Blood Pressure 128/78 H BP Systolic 128 BP Diastolic 78 Pulse Ox 10/29/24 06:00 10/29/24 06:00 10/29/24 06:00 Temperature 96.6 F L Temperature Source Temporal Pulse Rate Respiratory Rate 18 Blood Pressure BP Systolic BP Diastolic Pulse Ox 10/29/24 06:01 10/29/24 06:01 10/29/24 06:38 Temperature Temperature Source Pulse Rate 79 84 Respiratory Rate Blood Pressure BP Systolic BP Diastolic Pulse Ox 100 10/29/24 06:38 10/29/24 06:40 10/29/24 06:40 Temperature Temperature Source Pulse Rate 86 Respiratory Rate Blood Pressure 124/82 H BP Systolic 124 BP Diastolic 82 Pulse Ox 99 10/29/24 06:40 10/29/24 06:40 10/29/24 06:40 Temperature 98.8 F Temperature Source Temporal Pulse Rate Respiratory Rate 16 Blood Pressure BP Systolic BP Diastolic Pulse Ox 10/29/24 06:43 10/29/24 06:43 Temperature Temperature Source Pulse Rate 83 Respiratory Rate Blood Pressure BP Systolic BP Diastolic Pulse Ox 100 Weight Weight: 70.307 kg Body Mass Index (BMI) 26.6 Physical Exam Const alert and no apparent distress General Appearance: cooperative HEENT normocephalic Resp normal respiratory effort Cardio regular rate GI soft to palpation GI Narrative: gravid, nontender, appropriate for gestational age Extremity no calf tenderness General Extremity: edema Skin no wounds Rashes: No rashes noted Psych activity/motor behavior normal Labs Labs Labs: Blood Type O NEGATIVE Antibody Screen NEGATIVE Hct 34.7 % (37-47) L Hgb 12.0 g/dL (12.0-15.0) Syphilis Total Ab Nonreactive (Nonreactive) Rhogam given: No Assessment & Plan (1) Encounter for supervision of other normal , third trimester: PLAN: Patient admitted for active labor with spontaneous rupture membranes. Estimated weight less than 4000 g and pelvis clinically adequate to expect vaginal delivery. May use routine pain control measures as needed and desired during labor. (2) Spontaneous onset of labor:
--- NOTE | 2024-10-29 06:51 | OB.VAGDELI_ITS ---
Maternal Data Information Final FLORY: 11/19/24 Gestational age: 37 0/7 Vaginal Delivery Maternal Presentation Maternal Presentation: Active Labor Vaginal Delivery Information Procedure Performed: Spontaneous Vaginal Delivery Surgeon/Practitioner: Diane Rush Date of Procedure: 10/29/24 Pre-Procedure Diagnosis: labor Post-Procedure Diagnosis: labor Type of anesthesia: None Estimated Blood Loss: 250 Time of Delivery: 06:26 Findings Description of procedure: A vigorous male infant was delivered CONCEPCION over a first-degree perineal laceration. A loose nuchal cord ?1 was easily reduced. The remainder the was delivered with maternal pushing and gentle traction only in less than 15 seconds. The Pitocin infusion was initiated for active management of the third stage. The cord was clamped and cut after cord pulsations ceased. The infant was attended to by the waiting nursing staff. The placenta was delivered spontaneously and intact. The cervix and vagina were intact. The first-degree laceration was hemostatic and not repaired after discussion with the patient. Sponge and needle counts were correct. A vaginal sweep was completed by me. 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
[2024-10-29] MEDS: Oxytocin 15 Units/NS 250ml 15 UNITS/250 ML IV.SOLN 83 UNITS IV (07:12)
[2024-10-29] MEDS: Ibuprofen 600 MG Tablet PO ×2 (07:28→16:02)
[2024-10-29] MEDS: Acetaminophen 500 MG Tablet 1000 MG PO ×3 (07:28→20:15)
[2024-10-30] VITALS (8 sets, daily range): BP systolic 101–123; BP diastolic 56–86; PULSE 66–80; RESP 16–17; TEMP 36.3–37; O2SAT 96–99
[2024-10-30] MEDS: Ibuprofen 600 MG Tablet PO (00:33)
[2024-10-30] MEDS: Acetaminophen 500 MG Tablet 1000 MG PO (05:06)
--- NOTE | 2024-10-30 08:21 | PCM.PN.OB ---
Subjective Subjective Doing well. Ambulating and voiding without difficulty. Mild lochia. Breast feeding. Objective Data Objective Data Vital Signs: Vital Signs Temp Pulse Resp BP Pulse Ox O2 Del Method 97.4 F L 77 16 123/86 H 98 Room Air 10/30/24 04:55 10/30/24 08:12 10/30/24 04:55 10/30/24 08:12 10/30/24 08:12 10/30/24 04:55 Oxygen Delivery Method Room Air Weight: 70.307 kg Body Mass Index (BMI) 26.6 Intake & Output: Intake and Output for Last 24 Hours 10/28/24 10/29/24 10/30/24 23:59 23:59 23:59 Intake Total 500 / 500 Output Total 250 / 250 Balance 250 / 250 Lab / Micro Data 10/28/24 00:00 ROS Constitutional Constitutional: Denies headache(s) Cardiovascular Cardiovascular: Denies chest pain or dyspnea Gastrointestinal Gastrointestinal: Denies nausea or vomiting Genitourinary Genitourinary: Denies dysuria Physical Exam Const alert, oriented x3 and no apparent distress General Appearance: cooperative and comfortable Eyes PERRL and EOMs intact bilaterally Resp normal respiratory effort GI soft to palpation and non-tender Uterus Palpation: uterus fundus firm ( below umbilicus) Extremity normal to inspection and full ROM Neuro oriented x3 and CN's II-XII intact bilaterally Psych mental status grossly normal Assessment & Plan (1) (spontaneous vaginal delivery): PLAN: Plan Routine d/c at 36 hours
--- NOTE | 2024-10-30 09:50 | PCM.DC.SUM ---
Providers Date of Admission: 10/28/24 Date of Discharge: 10/30/24 Primary Care Physician: Jennifer Primary Care Phys Reason For Visit: VAGINAL Diagnosis Discharge Diagnosis (1) (spontaneous vaginal delivery): Status: Acute Code(s): O80 - Encounter for full-term uncomplicated delivery Plan Routine d/c at 36 hours Medications at Discharge Home Medications vits 75-iron 28 mg-folic acid 800 mcg-omega-3 oral combo pack (One A Day Women's DHA) 1 pkg PO DAILY 10/28/24 Hospital Course Operations None Procedures None Summary of Care Provided Minutes Spent on Discharge: 20 Hospital Course: without complications. No problems . Breast feeding well. Physical Exam Const alert and no apparent distress Narrative: Fundus firm, below umbilicus. Weight / BMI Weight Weight: 70.307 kg Body Mass Index (BMI) 26.6 ABG / Lab / Microbiology Data 10/28/24 00:00 D/C Instructions Discharge Diet: No restrictions May resume sexual activity in: 6 weeks Call your doctor if your incision/area has: Continuous Slow Oozing, Sudden Increased Bleeding, Foul Smelling Discharge and Swelling at the incision site Call your doctor if you observe: Fever of 101 or Higher and Inability to urinate DC O2, CPAP, BIPAP Needs Home O2 Discharge instructions: No Please Follow Up With: Diane Rush MD When: Follow up with our office in 1-2 and 6 weeks or as needed. [phone] Meaningful Use Info Meaningful Use Meaningful Use Diagnoses (Choose all that apply): None applicable Ischemic Stroke Statin Dosing Therapy Reference: STATIN DOSE THERAPY REFERENCE: * Patients > 75 years receive moderate or high dose statin therapy. * Patients 75 years or YOUNGER should receive HIGH intensity statin dose unless contraindicated. You will be required to document reason for non-treatment if statin daily dose does not meet guidelines. HIGH DOSE STATIN THERAPY DAILY Atorvastatin > than or = to 40 mg Rosuvastatin > than or = to 20 mg Amlodipine + Atorvastatin > than or = to 2.5/40 mg Ezetimibe + Simvastatin 10/80 mg Simvastatin 80mg Discharge Plan Admission Admit Date/Time: 10/28/24 23:30 Primary Reason for Your Visit: SROM Attending Provider: Diane Rush Primary Care Provider: Care Physician,Jennifer Primary Discharge Orders/Prescriptions Prescriptions: Continued One A Day Women's DHA 28 mg iron- 800 mcg combo pack 1 pkg PO DAILY Referrals / Follow Up: Care Physician,No Primary [Primary Care Provider] - Disposition Disposition (needs filled in before D/C Order can be placed): Home, Self Care
--- NOTE | 2024-11-03 20:24 | NURSING ---
Follow up phone call was in person as infant is in SCN. Patient reports she is feeling well although the scn experience can feel a little overwhelming at times. Patient stated her bleeding is decreasing although today was a little more than yesterday but she had been up moving more today. No signs of clots and not filling a pad. No s+s or pp complications although she does feel a little down sometimes due to being in SCN. [facility] strongly encouraged MOB to reach out to provider for resources and care. Patient reported is feeding at breast and doing well. Pt was satisfied with her care. Again before leaving [facility] encouraged patient to reach out about how she is feeling to provider.
== END 2024-10-30 18:50 | disposition home or self-care (01) | DRG 560 ==
LOC: WPOUT 23:32 → WP 23:32
PROVIDERS: Admitting Provider Obstetrics & Gynecology; Referring Provider Obstetrics & Gynecology; Visit Provider Obstetrics & Gynecology
DX: O42.913 Preterm premature rupture of membranes, unspecified as to length of time between rupture and onset of labor, third trimester (principal); Z37.0 Single live birth; O99.344 Other mental disorders complicating childbirth; F41.9 Anxiety disorder, unspecified; O70.0 First degree perineal laceration during delivery; O69.81X0 Labor and delivery complicated by cord around neck, without compression, not applicable or unspecified; Z3A.36 36 weeks gestation of pregnancy
CPT/HCPCS: 59025; 59050; 80307; 84112; 85025; 86780; 86850; 86900; 86901; 99221; A4216; G0378